=== PATIENT | male | born 1955 | race African-American/Black ===

== ENCOUNTER 2017-09-27 10:08 | Inpatient (IN) | payer OTHER ==
[~2017-09-27] VITALS: Ht 180.3 cm; Wt 64.4 kg
[~2017-09-27 10:08] MED LIST: ATEN50TA PO; LISI10TA5 PO
--- NOTE | 2017-09-27 10:20 | NUR ---
AAOX3, c/o nausea and vomiting x w/ loose stools feeling weak, lost apetite. RR IS EVEN AND UNLABORED WITH NAD NOTED. SKIN IS WARM AND DRY. DR BERNARDO AT BS FOR EVAL.
[2017-09-27] MEDS ORDERED: ISOS10TA8 PO (10:23)
[2017-09-27] MEDS ORDERED: METO50TA3 PO (10:23)
[2017-09-27] MEDS ORDERED: AMLO10TA2 PO (10:23)
[2017-09-27 10:53] LABS: BASOPHILS % (AUTO) 0.3 % (0.0-2.0); EOSINOPHILS # (AUTO) 0.2 /CMM (0.0-0.7); EOSINOPHILS % (AUTO) 2.3 % (0.0-6.0); HEMATOCRIT 37 % (39-51); LYMPHOCYTES # (AUTO) 1.2 /CMM (0.8-4.8); LYMPHOCYTES % (AUTO) 14.6 % (20.0-44.0); MEAN CORPUSCULAR HEMOGLOBIN 28 PG (26.0-33.0); MEAN CORPUSCULAR HGB CONC 33 g/dl (31.0-36.0); MEAN CORPUSCULAR VOLUME 86 fL (80-96); MONOCYTES # (AUTO) 0.6 /CMM (0.1-1.30); MONOCYTES % (AUTO) 7.8 % (2.0-12.0); NEUTROPHILS # (AUTO) 5.9 /CMM (1.8-8.9); PLATELET COUNT (AUTO) 112 /CMM (150-450); RDW COEFFICIENT OF VARIATION 13.1 (11.5-15.0); RED BLOOD CELL COUNT(AUTO) 4.28 MIL/uL (4.5-6.0); WHITE BLOOD COUNT (AUTO) 7.9 K/uL (4.3-11.0)
[2017-09-27 11:08] LABS: ALBUMIN 3.5 g/dL (3.4-5.0); BILIRUBIN,DIRECT 0.1 mg/dL (0.0-0.2); BILIRUBIN,TOTAL 0.3 mg/dL (0.2-1.0); CALCIUM, SERUM 6.3 mg/dL (8.5-10.1); POTASSIUM 3.8 mmol/L (3.5-5.1); TOTAL PROTEIN, SERUM 7.6 g/dL (6.4-8.2)
[2017-09-27 11:09] LABS: CREATININE 18.3 mg/dL (0.6-1.3)
[2017-09-27 11:10] LABS: TROPONIN I 0.031 ng/mL (0.00-0.056)
--- NOTE | 2017-09-27 11:15 | NUR ---
CALLED [facility], DR LORENZANA WAS PAGED.
--- NOTE | 2017-09-27 11:20 | NUR ---
CALLED [facility] ABSTRACTOR WAS PAGED.
[2017-09-27] MEDS ORDERED: IV NS 0.9% 500 ML BAG IV ONE (11:30)
[2017-09-27] MEDS: AMLODIPINE BESYLATE 10 MG TABLET PO SCH (12:00)
[2017-09-27] MEDS ORDERED: ZOLPIDEM TARTRATE 5 MG TABLET PO PRN (12:00)
[2017-09-27] MEDS ORDERED: Z GUARD REMEDY 2 OZ OINT TP PRN (12:00)
[2017-09-27] MEDS: METOPROLOL TARTRATE 50 MG TABLET PO SCH ×2 (12:00→16:43)
[2017-09-27] MEDS ORDERED: MAGNESIUM HYDROXIDE 30 ML UDC PO PRN (12:00)
[2017-09-27] MEDS ORDERED: MAG HYDROX/AL HYDROX/SIMETH 30 ML UDC PO PRN (12:00)
--- NOTE | 2017-09-27 12:41 | NUR ---
NURSE UNAVAILABLE FOR REPORT AT THIS TIME.
--- NOTE | 2017-09-27 12:59 | NUR ---
REPORT GIVEN TO SHI SAMUELS FOR TELE ROOM 116
--- NOTE | 2017-09-27 13:35 | NUR ---
RN NOTE RECEIVED PT ON AOX4, ON BED, AMBULATORY, NO SOB, ON ROOM AIR, VS STABLE, L AC IV ACCESS, CLEAN AND DRY, DENIES ANY PAIN, DENIES N/V. WILL CONTINUE TO MONITOR.
[2017-09-27 13:50] VITALS: BP 154/83
[2017-09-27] MEDS: IV NS 0.9% 1,000 ML IV PRN (14:27)
[2017-09-27 16:00] VITALS: BP 154/85
[2017-09-27] MEDS: ISOSORBIDE MONONITRATE 20 MG TABLET PO SCH (16:43)
--- NOTE | 2017-09-27 19:00 | NUR ---
PATIENT IS ALERT AND ORIENTED X 4. ABLE TO VERBALIZE NEEDS. PATIENT REMAINS STABLE THROUGHOUT THE SHIFT. ALL NEEDS MET. KEPT CLEAN AND COMFORTABLE. NIECE IS AT BED SIDE. ENDORSED TO NEXT SHIFT FOR CONTINUITY OF CARE. ALL DUE MEDS GIVEN PER MD ORDER.
[2017-09-27 20:00] VITALS: BP 159/93
[2017-09-28] MEDS: ACETAMINOPHEN 325 MG TABLET PO PRN ×2 (02:14→21:18)
[2017-09-28 04:00] VITALS: BP_SYST 159; BP_SYST 166; BP_DIAS 85; BP_DIAS 93
[2017-09-28] MEDS: IV NS 0.9% 1,000 ML IV PRN (04:22)
[2017-09-28] MEDS: ONDANSETRON HCL/PF 4 MG/2 ML VIAL IVP PRN (04:27)
--- NOTE | 2017-09-28 07:00 | NUR ---
RN NOTES: PATIENT RESTING IN BED. PATIENT ALERT ORIENTED X4. NONLBAORED BREATHING NOTED ON ROOM AIR. IV SITE PATENT AND INTACT. PATIENT DENIES PAIN. BED IN LOWEST LOCKED POSITION. CALL LIGHT WITHIN REACH. WILL CONTINUE TO MONITOR
[2017-09-28 07:54] LABS: CALCIUM, SERUM 6.2 mg/dL (8.5-10.1); MAGNESIUM 1.9 mg/dL (1.8-2.4); PHOSPHORUS 6.4 mg/dL (2.5-4.9); POTASSIUM 3.6 mmol/L (3.5-5.1)
[2017-09-28 08:00] VITALS: BP 162/89
[2017-09-28 08:09] LABS: CREATININE 19.4 mg/dL (0.6-1.3)
[2017-09-28 08:21] LABS: BASOPHILS % (AUTO) 0.1 % (0.0-2.0); EOSINOPHILS # (AUTO) 0.1 /CMM (0.0-0.7); EOSINOPHILS % (AUTO) 1.2 % (0.0-6.0); HEMATOCRIT 33 % (39-51); LYMPHOCYTES # (AUTO) 1.1 /CMM (0.8-4.8); MEAN CORPUSCULAR HEMOGLOBIN 29 PG (26.0-33.0); MEAN CORPUSCULAR HGB CONC 34 g/dl (31.0-36.0); MEAN CORPUSCULAR VOLUME 86 fL (80-96); MONOCYTES # (AUTO) 0.7 /CMM (0.1-1.30); MONOCYTES % (AUTO) 7.6 % (2.0-12.0); NEUTROPHILS # (AUTO) 7.9 /CMM (1.8-8.9); NEUTROPHILS % (AUTO) 80.1 % (43.0-81.0); PLATELET COUNT (AUTO) 102 /CMM (150-450); RDW COEFFICIENT OF VARIATION 13.7 (11.5-15.0); RED BLOOD CELL COUNT(AUTO) 3.79 MIL/uL (4.5-6.0); WHITE BLOOD COUNT (AUTO) 9.8 K/uL (4.3-11.0)
[2017-09-28] MEDS ORDERED: ISOSORBIDE MONONITRATE 20 MG TABLET PO SCH (09:00)
[2017-09-28] MEDS: AMLODIPINE BESYLATE 10 MG TABLET PO SCH (09:02)
[2017-09-28] MEDS: ISOSORBIDE MONONITRATE 20 MG TABLET PO SCH ×2 (09:03→16:19)
[2017-09-28] MEDS: METOPROLOL TARTRATE 50 MG TABLET PO SCH ×2 (09:04→16:20)
[2017-09-28] MEDS ORDERED: MORPHINE SULFATE INJ 2 MG/ML DISP.SYRIN IVP ONE (12:30)
--- NOTE | 2017-09-28 12:35 | NUR ---
RN NOTES: PATIENT INDICATED SLIGHT CHEST TIGHTNESS DURING HD ACCESS INSERTION. DR TALAMANTES ORDERED MORPHINE 2 MG IV ONCE. PATIENT REFUSING MEDICATION. DENYING CHEST PAIN AND DENYING CHEST TIGHTNESS AT THE MOMENT. NONLABORED BREATHING NOTED. WILL CONTINUE TO MONITOR PATIENT
[2017-09-28] MEDS ORDERED: Calcium Gluconate 1GM/10ML 4.65 MEQ in IV D5W 50 ML IV ONE (15:00)
[2017-09-28 16:00] VITALS: BP 180/100
[2017-09-28] MEDS: CALCIUM ACETATE 667 MG TABLET PO SCH (18:14)
--- NOTE | 2017-09-28 19:29 | NUR ---
RN NOTES CLOSING: PATIENT ALERT ORIENTED X4. NONLABORED BREATHING ON ROOM AIR. NO SIGNS OF DISTRESS. PATIENT DENIES PAIN AT THE MOMENT, DENIES NAUSEA. IV SITE PATENT AND INTACT. INTERNAL JUGULAR CATHETER, INSERTED BY DR TALAMANTES TEMPORARY HEMODIALYSIS ACESS. PATIENT RECEIVED HEMODIALYSIS TODAY. OUTPUT 1000ML. PATIENT DENIES HEADACHES. THE AMOUNT OF 1,000 DOLLARS THAT WAS IN THE HOSPITAL'S SAFE RETURNED BACK TO PATIENT VIA PATIENT'S REQUEST TO BE SENT HOME WITH . CHARGE NURSE ANNITA WITNESSED THE COUNT. BED IN LOWEST LOCKED POSITION. CALL LIGHT WITHIN REACH. DURING SHIFT, PATIENT KEPT CLEAN AND DRY DURING SHIFT, ENCOURAGED TO TURN AND REPOSITION EVERY 2 HOURS. ENDORSED TO NEXT SHIFT
--- NOTE | 2017-09-28 19:30 | NUR ---
RN INITIAL NOTES, RECEIVED PATIENT IN BED, A/O X 4, ABLE TO VERBALIZED NEEDS AND CONCERNS. BREATHING EVEN AND UNLABORED NO S/S OF ACUTE DISTRESS OR SOB NOTED AT THIS TIME. NOTED WITH RIGHT JUGULAR CVC PLACED TODAY FOR HD ACCESS, INTACT, NO S/S OF INFECTION OR BLEEDING AT THIS TIME, WITH SALINE LOCK IN LEFT AC, INTACT NO S/S OF ABNORMALITY NOTED, AMBULATORY AND CONTINENT TO B&B, WILL CONTINUE TO MONITOR CLOSELY.
[2017-09-28 20:00] VITALS: BP 157/91
[2017-09-29 04:00] VITALS: BP 155/90
--- NOTE | 2017-09-29 06:45 | NUR ---
RN CLOSING NOTES, PATIENT SLEEPING IN BED, BUT EASILY AROUSABLE, BREATHING EVEN AND UNLABORED, NO S/S OF ANY ACUTE DISTRESS OR DISCOMFORT, NO SOB OR PAIN REPORTED AT THIS TIME. PATIENT WITH RIGHT INTRAJUGULAR CATHETER FOR HEMODIALYSIS, PATIENT WILL HAVE HEMODIALYSIS TODAY, WILL ENDORSED CARE TO NEXT SHIFT NURSE.
[2017-09-29 06:55] LABS: BASOPHILS % (AUTO) 0.4 % (0.0-2.0); EOSINOPHILS # (AUTO) 0.3 /CMM (0.0-0.7); EOSINOPHILS % (AUTO) 3.4 % (0.0-6.0); HEMATOCRIT 34 % (39-51); HEMOGLOBIN 11.5 g/dL (13.5-17.5); LYMPHOCYTES # (AUTO) 1.6 /CMM (0.8-4.8); LYMPHOCYTES % (AUTO) 20.3 % (20.0-44.0); MEAN CORPUSCULAR HEMOGLOBIN 29 PG (26.0-33.0); MEAN CORPUSCULAR HGB CONC 34 g/dl (31.0-36.0); MEAN CORPUSCULAR VOLUME 86 fL (80-96); MONOCYTES # (AUTO) 0.8 /CMM (0.1-1.30); MONOCYTES % (AUTO) 10.6 % (2.0-12.0); NEUTROPHILS % (AUTO) 65.3 % (43.0-81.0); PLATELET COUNT (AUTO) 117 /CMM (150-450); RDW COEFFICIENT OF VARIATION 14.1 (11.5-15.0); RED BLOOD CELL COUNT(AUTO) 3.98 MIL/uL (4.5-6.0); WHITE BLOOD COUNT (AUTO) 7.7 K/uL (4.3-11.0)
[2017-09-29 07:21] LABS: MAGNESIUM 1.9 mg/dL (1.8-2.4); PHOSPHORUS 6.5 mg/dL (2.5-4.9); POTASSIUM 3.2 mmol/L (3.5-5.1)
[2017-09-29 07:24] LABS: CREATININE 16.3 mg/dL (0.6-1.3)
--- NOTE | 2017-09-29 07:34 | NUR ---
MS/RN OPENING NOTE PATIENT IN BED IN STABLE CONDITION. A/O X 3. NO SIGNS OF ACUTE DISTRESS. NO COMPLAIN OF PAIN OR DISCOMFORT. ALL NEEDS ATTENDED TO. CALL LIGHT WITHIN REACH. WILL CONTINUE TO MONITOR TO ENSURE SAFETY.
[2017-09-29 08:00] VITALS: BP 159/93
[2017-09-29] MEDS: ISOSORBIDE MONONITRATE 20 MG TABLET PO SCH ×2 (08:37→16:56)
[2017-09-29] MEDS: METOPROLOL TARTRATE 50 MG TABLET PO SCH ×2 (08:37→16:56)
[2017-09-29] MEDS: CALCIUM ACETATE 667 MG TABLET PO SCH ×3 (08:38→16:56)
[2017-09-29] MEDS: AMLODIPINE BESYLATE 10 MG TABLET PO SCH (08:38)
[2017-09-29] MEDS: VIT B CMPLX 3/FA/VIT C/BIOTIN 1 TAB TABLET PO SCH (08:38)
--- NOTE | 2017-09-29 10:00 | NUR ---
MS/RN SEEN BY DR BAEZ PATIENT SEEN BY DR BAEZ WITH NO ORDERS AT THIS TIME.
--- NOTE | 2017-09-29 12:15 | NUR ---
MS/RN S/P HD TREATMENT PATIENT S/P HEMODIALYSIS TREATMENT TOLERATED WELL. 2000ML FLUID OUT. RIGHT IJ CATHETER SITE CLEAN, DRY NOTED WITH CLEAN DRESSING. NO SIGNS OF BLEEDING NOTED. ALL NEEDS ATTENDED TO. WILL CONTINUE TO MONITOR TO ENSURE SAFETY.
[2017-09-29 12:17] VITALS: BP 159/83
[2017-09-29] MEDS: ONDANSETRON HCL/PF 4 MG/2 ML VIAL IVP PRN (13:09)
[2017-09-29 16:00] VITALS: BP 186/99
[2017-09-29] MEDS: NEOMY SULF/BACITRAC ZN/POLY 15 GM TUBE TP SCH (17:00)
--- NOTE | 2017-09-29 18:23 | NUR ---
MS/RN CLOSING NOTE PATIENT IN BED IN STABLE CONDITION. A/O X 3. NO SIGNS OF ACUTE DISTRESS. NO COMPLAIN OF PAIN OR DISCOMFORT. ALL NEEDS ATTENDED TO. CALL LIGHT WITHIN REACH. WILL ENDORSE TO NEXT SHIFT FOR CONTINUITY OF CARE.
--- NOTE | 2017-09-29 19:05 | NUR ---
RN OPENING NOTES RECEIVED REPORT FROM AM RN. PATIENT A/A/O X4, ABLE TO MAKE NEEDS KNOWN. BREATHING EVEN & UNLABORED, ON ROOM AIR. DENIES SOB OR DIFFICULTY BREATHING. PULSES PRESENT. LEFT AC IV #20 INTACT & FLUSHING WELL W/ DRESSING CDI, SALINE LOCKED. RIGHT IJ HD CATH INTACT W/ DRESSING CDI & MINIMAL BLEEDING NOTED. DENIES ANY PAIN OR DISCOMFORT @ THIS TIME. SAFETY MEASURES IN PLACE W/ SIDE RAILS UP, BED LOCKED & IN LOWEST POSITION & CALL LIGHT WITHIN REACH. WILL CONTINUE TO MONITOR.
[2017-09-29 20:00] VITALS: BP 146/81
[2017-09-30 04:00] VITALS: BP 143/85
--- NOTE | 2017-09-30 07:10 | NUR ---
RN NOTES RECEIVED PT ON BED, A/Ox4, RESPIRATION EVEN AND UNLABORED, NO SOB NOTED, ON RA , . LEFT AC IV #20 SITE CDI, SALINE LOCKED. RIGHT IJ HD CATH INTACT W/ DRESSING CDI , DENIES ANY PAIN OR DISCOMFORT @ THIS TIME. SR UP x3, CALL LIGHT WITHIN EASY REACH, BED LOCKED & IN LOWEST POSITION, WILL CONTINUE TO MONITOR.
[2017-09-30 07:57] LABS: BASOPHILS % (AUTO) 0.4 % (0.0-2.0); EOSINOPHILS # (AUTO) 0.3 /CMM (0.0-0.7); EOSINOPHILS % (AUTO) 3.6 % (0.0-6.0); HEMATOCRIT 34 % (39-51); HEMOGLOBIN 11.3 g/dL (13.5-17.5); LYMPHOCYTES # (AUTO) 1.6 /CMM (0.8-4.8); LYMPHOCYTES % (AUTO) 21.2 % (20.0-44.0); MEAN CORPUSCULAR HEMOGLOBIN 28 PG (26.0-33.0); MEAN CORPUSCULAR HGB CONC 33 g/dl (31.0-36.0); MEAN CORPUSCULAR VOLUME 86 fL (80-96); MONOCYTES % (AUTO) 12.9 % (2.0-12.0); NEUTROPHILS # (AUTO) 4.8 /CMM (1.8-8.9); NEUTROPHILS % (AUTO) 61.9 % (43.0-81.0); PLATELET COUNT (AUTO) 152 /CMM (150-450); RED BLOOD CELL COUNT(AUTO) 3.96 MIL/uL (4.5-6.0); WHITE BLOOD COUNT (AUTO) 7.8 K/uL (4.3-11.0)
[2017-09-30 08:00] VITALS: BP 162/100
[2017-09-30] MEDS: CALCIUM ACETATE 667 MG TABLET PO SCH ×3 (08:01→17:15)
[2017-09-30 08:08] LABS: CALCIUM, SERUM 6.9 mg/dL (8.5-10.1); MAGNESIUM 1.8 mg/dL (1.8-2.4); PHOSPHORUS 6.2 mg/dL (2.5-4.9); POTASSIUM 3.2 mmol/L (3.5-5.1)
[2017-09-30 08:11] LABS: CREATININE 14.4 mg/dL (0.6-1.3)
--- NOTE | 2017-09-30 09:00 | NUR ---
RN NOTES PT RECEIVING HD AT THIS TIME , MORNING MEDS HELD AT THIS TIME .
[2017-09-30] MEDS: METOPROLOL TARTRATE 50 MG TABLET PO SCH ×2 (10:09→16:37)
[2017-09-30] MEDS: ISOSORBIDE MONONITRATE 20 MG TABLET PO SCH ×2 (10:10→16:36)
[2017-09-30] MEDS: VIT B CMPLX 3/FA/VIT C/BIOTIN 1 TAB TABLET PO SCH (10:10)
[2017-09-30] MEDS: AMLODIPINE BESYLATE 10 MG TABLET PO SCH (10:10)
[2017-09-30] MEDS: NEOMY SULF/BACITRAC ZN/POLY 15 GM TUBE TP SCH ×2 (10:12→16:37)
[2017-09-30 12:00] VITALS: BP 155/98
--- NOTE | 2017-09-30 14:00 | NUR ---
RN NOTES PT STABLE , SUPPORTIVE FAMILY AT THE BEDSIDE, CONTINUE TO MONITOR .
[2017-09-30 16:00] VITALS: BP 159/93
--- NOTE | 2017-09-30 18:24 | NUR ---
RN NOTES PT SITTING UP EATING DINNER , BALWINDER ANY DISTRESS , L AC IV SITE AND R IJ HD CATH SITES CDI, CALL LIGHT WITHIN EASY REACH, WILL ENDORSE TO GETTER FILLER NURSE FOR BRADY.
--- NOTE | 2017-09-30 19:40 | NUR ---
MS RN INITIAL NOTE PT RECEIVED SITTING UP IN BED WATCHING TV WITH FAMILY AT BEDSIDE. A/O X4 AND ABLE TO MAKE NEEDS KNOWN. BREATHING REGULAR, EVEN AND UNLABORED. ON ROOM AIR AND SATURATING 97%. IV LAC #20 CLEAN, DRY AND FLUSHING WELL. R IJ HD CATH CLEAN AND IN PLACE. EXPLAINED TO PT NPO STATUS STARTING AT MIDNIGHT FOR PROCEDURE IN THE MORNING. PT VERBALIZED UNDERSTANDING. CALL LIGHT WITHIN REACH. WILL CONTINUE TO MONITOR.
[2017-09-30 20:00] VITALS: BP 146/92
--- NOTE | 2017-10-01 | NUR ---
RN NOTE PT C/O RIGHT KNEE PAIN. PT ASKED FOR HOT PACK AND WRAPPED WITH ELMO BANDAGE. OFFERED PAIN MEDICATION AND PT REFUSED STATING THE PAIN WAS NOT TOO BAD. PT WENT BACK TO SLEEP.
[2017-10-01 04:00] VITALS: BP 150/93
--- NOTE | 2017-10-01 04:00 | NUR ---
RN NOTE PT ASKED FOR MORE ANOTHER HOT PACK FOR HIS RIGHT KNEE PAIN. ONCE AGAIN OFFERED PAIN MEDICATION AND PT REFUSED. WENT BACK TO SLEEP.
[2017-10-01] MEDS ORDERED: CEFAZOLIN 2 GM ONE (06:25)
[2017-10-01] MEDS ORDERED: CEFAZOLIN 2 GM in IV D5W 50 ML IV ONE (06:30)
--- NOTE | 2017-10-01 06:30 | NUR ---
RN NOTE DR. SKY-SURGEON FOR PERMA CATH PLACEMENT THIS MORNING IN PT ROOM WITH NEW ORDER FOR ONE TIME DOSE ANCEF 2 GRAM IVPB MIXED IN D5W, 50ML BAG FOR PREOP/ PROPHYLAXIS. ORDERS NOTED AND CARRIED.
[2017-10-01] MEDS ORDERED: ANESTHESIA TRAY IN PYXIS 1 EA TRAY MC ONE ×2 (06:39→07:02)
[2017-10-01] MEDS ORDERED: LIDOCAINE 1% INJ 50 ML MDV IJ ONE ×2 (06:40→06:48)
[2017-10-01] MEDS ORDERED: HEPARIN SODIUM, PORCINE 1,000 UNIT/ML VIAL ONE (06:40)
[2017-10-01] MEDS ORDERED: PROPOFOL 20 ML IV ONE (06:49)
[2017-10-01] MEDS ORDERED: ATROPINE SULFATE 1 MG/10 ML DISP.SYRIN ONE (06:50)
[2017-10-01] MEDS ORDERED: ESMOLOL INJ 100 MG/10 ML VIAL IV ONE (06:52)
[2017-10-01] MEDS ORDERED: FENTANYL PF 100MCG/2ML AMPUL ONE ×2 (06:54→08:13)
[2017-10-01] MEDS ORDERED: MIDAZOLAM HCL 2 MG/2ML VIAL ONE (06:54)
--- NOTE | 2017-10-01 07:00 | NUR ---
RN NOTES PT OFF THE FLOOR IN OR AT THIS TIME
[2017-10-01 07:09] LABS: BASOPHILS % (AUTO) 0.3 % (0.0-2.0); CALCIUM, SERUM 7.2 mg/dL (8.5-10.1); EOSINOPHILS # (AUTO) 0.3 /CMM (0.0-0.7); EOSINOPHILS % (AUTO) 2.9 % (0.0-6.0); HEMATOCRIT 36 % (39-51); HEMOGLOBIN 11.9 g/dL (13.5-17.5); LYMPHOCYTES # (AUTO) 2.1 /CMM (0.8-4.8); LYMPHOCYTES % (AUTO) 21.2 % (20.0-44.0); MAGNESIUM 1.9 mg/dL (1.8-2.4); MEAN CORPUSCULAR HEMOGLOBIN 29 PG (26.0-33.0); MEAN CORPUSCULAR HGB CONC 33 g/dl (31.0-36.0); MEAN CORPUSCULAR VOLUME 87 fL (80-96); MONOCYTES # (AUTO) 1.1 /CMM (0.1-1.30); MONOCYTES % (AUTO) 10.5 % (2.0-12.0); NEUTROPHILS # (AUTO) 6.6 /CMM (1.8-8.9); NEUTROPHILS % (AUTO) 65.1 % (43.0-81.0); PHOSPHORUS 5.2 mg/dL (2.5-4.9); PLATELET COUNT (AUTO) 201 /CMM (150-450); POTASSIUM 4.3 mmol/L (3.5-5.1); RDW COEFFICIENT OF VARIATION 13.9 (11.5-15.0); RED BLOOD CELL COUNT(AUTO) 4.17 MIL/uL (4.5-6.0); WHITE BLOOD COUNT (AUTO) 10.1 K/uL (4.3-11.0)
--- NOTE | 2017-10-01 07:13 | NUR ---
MS RN CLOSING NOTE PT REMAINED STABLE DURING SHIFT. PT C/O RIGHT KNEE PAIN AND ASKING FOR TORADOL ONE TIME DOSE. INFORMED BAR HELPER DR. ARSHAD WITH NEW ORDER OF TORADOL 15MG X1 BUT DID NOT GIVE A ROUTE. CALLED DR BACK FOR CLARIFICATION OF ORDER, WHILE AWAITING CALL BACK PT WAS PICKED UP BY SURGERY. SURGERY TEAM INFORMED OF PAIN MEDICATION ROUTE NOT GIVEN AND AWAITING MD CALL BACK. SURGERY TEAM STATED,"WE WILL TAKE CARE OF IT. HE'LL BE GIVEN SOMETHING FOR PAIN." PT LEFT UNIT A/O X4, SAFELY AND IN NO ACUTE DISTRESS. NO SOB NOTED. ON ROOM AIR. ENDORSED TO NEXT SHIFT FOR CONTINUITY OF CARE.
[2017-10-01 07:26] LABS: CREATININE 13.3 mg/dL (0.6-1.3)
[2017-10-01 08:00] VITALS: BP 135/86
[2017-10-01] MEDS: CALCIUM ACETATE 667 MG TABLET PO SCH ×3 (08:00→17:20)
[2017-10-01] MEDS ORDERED: MEPERIDINE HCL/PF 50 MG/ML DISP.SYRIN ONE (08:03)
[2017-10-01] MEDS ORDERED: ONDANSETRON HCL/PF 4 MG/2 ML VIAL ONE (08:13)
[2017-10-01 08:45] VITALS: BP 135/86
--- NOTE | 2017-10-01 08:45 | NUR ---
RN NOTES PT RECEIVED IN ROOM 116-1 FROM OR, A/Ox4, RESPIRATION EVEN AND UNLABORED, C/O R AND L LEG PAIN , DR BAEZ AWARE , PEDAL PULSES PRESENT YELITZA , NO SWELLING OR REDNESS NOTED , ND=516/86 HR 89 O2 SAT 98%, R UPPER CHEST PERMA CATH SITE CDI, DRESSING TO R NECK CDI. L AC IV SITE G 20 CDI, CONTINUE TO MONITOR PT CLOSELY .
[2017-10-01] MEDS: NEOMY SULF/BACITRAC ZN/POLY 15 GM TUBE TP SCH ×2 (08:58→16:54)
[2017-10-01] MEDS: VIT B CMPLX 3/FA/VIT C/BIOTIN 1 TAB TABLET PO SCH (08:59)
[2017-10-01] MEDS: ISOSORBIDE MONONITRATE 20 MG TABLET PO SCH ×2 (08:59→16:55)
[2017-10-01] MEDS: AMLODIPINE BESYLATE 10 MG TABLET PO SCH (08:59)
[2017-10-01] MEDS: METOPROLOL TARTRATE 50 MG TABLET PO SCH ×2 (09:00→16:55)
[2017-10-01] MEDS: CALCITRIOL ORAL SOLUTION 1 MCG/ML NG SCH (09:05)
[2017-10-01] MEDS: HYDROCODONE/APAP 5/325MG 1 EACH TABLET PO PRN ×3 (09:36→20:22)
--- NOTE | 2017-10-01 15:47 | NUR ---
RN NOTES PT C/O RIGHT KNEE PAIN , NARCO PO GIVEN PER MD ORDER , WANTS TO SEE DR Nito BAEZ. R LEG WARM TO TOUCH, PEDAL PULSE PRESENT . DR BAEZ NOTIFIED .
[2017-10-01 16:00] VITALS: BP_SYST 117; BP_SYST 141; BP_DIAS 69; BP_DIAS 87
--- NOTE | 2017-10-01 16:00 | NUR ---
RN NOTES DR BAEZ AT THE BEDSIDE SEEING THE PT .
[2017-10-01] MEDS: COLCHICINE 0.6 MG TABLET PO PRN ×3 (17:20→22:15)
[2017-10-01] MEDS ORDERED: HYDROMORPHONE INJ 2 MG/ML DISP.SYRIN IV PRN (17:30)
--- NOTE | 2017-10-01 18:23 | NUR ---
RN NOTES PT SITTING AT UP, EATING DINNER , RESPIRATION EVEN AND UNLABORED, L AC IV SITE CDI, SUPPORTIVE FAMILY AT THE BEDSIDE, R UPPER CHEST PERMA CATH SITE CDI, WILL ENDORSE TO FINAL TESTER NURSE FOR BRADY
--- NOTE | 2017-10-01 19:40 | NUR ---
MS RN INITIAL NOTE PT RECEIVED SITTING UP IN BED WITH FAMILY AT BEDSIDE. A/O X4 AND ABLE TO MAKE NEEDS KNOWN. C/O RIGHT KNEE PAIN AND ASKED FOR COLCHICINE PRN. MEDICATION ADMINISTERED AND WELL TOLERATED. IV LAC CLEAN, DRY AND FLUSHING WELL. ON ROOM AIR AND BREATHING REGULAR, EVEN AND UNLABORED. CALL LIGHT WITHIN REACH. WILL CONTINUE TO MONITOR.
[2017-10-01 20:00] VITALS: BP 154/89
[2017-10-02] MEDS: COLCHICINE 0.6 MG TABLET PO PRN ×4 (02:12→22:11)
[2017-10-02] MEDS: HYDROCODONE/APAP 5/325MG 1 EACH TABLET PO PRN ×2 (02:51→14:42)
[2017-10-02 04:00] VITALS: BP 164/98
--- NOTE | 2017-10-02 06:34 | NUR ---
MS RN CLOSING NOTE PT REMAINED STABLE DURING SHIFT. NO ACUTE DISTRESS NOTED. RIGHT KNEE PAIN MANAGED WITH REPOSITIONING, PASSIVE RANGE OF MOTION, HOT PACKS AND PAIN MEDICATIONS ORDERED. ALL NEEDS ATTENDED TO PROMPTLY. RCW PERMACATH CLEAN AND IN PLACE. IV IN PLACE. CALL LIGHT WITHIN REACH. WILL ENDORSE TO NEXT SHIFT FOR CONTINUITY OF CARE.
--- NOTE | 2017-10-02 07:20 | NUR ---
ms rn initial notes Received patient in bed, awake, head of bed elevated, no SOB or distress noted. Alert and oriented x 4, verbally responsive and able to make needs known. IV intact and patent on the left AC #20, perma cath on the right chest wall, dressing intact, for dialysis access. Kept patient clean and comfortable in bed, call light with in patient reach, will continue to monitor accordingly.
[2017-10-02 08:00] VITALS: BP 166/93
[2017-10-02] MEDS: ONDANSETRON HCL/PF 4 MG/2 ML VIAL IVP PRN ×2 (08:30→14:08)
[2017-10-02] MEDS: CALCIUM ACETATE 667 MG TABLET PO SCH ×3 (08:32→17:59)
[2017-10-02] MEDS: ISOSORBIDE MONONITRATE 20 MG TABLET PO SCH ×2 (08:32→16:35)
[2017-10-02] MEDS: AMLODIPINE BESYLATE 10 MG TABLET PO SCH (08:32)
[2017-10-02] MEDS: NEOMY SULF/BACITRAC ZN/POLY 15 GM TUBE TP SCH ×2 (08:33→16:36)
[2017-10-02] MEDS: METOPROLOL TARTRATE 50 MG TABLET PO SCH ×2 (08:33→16:35)
[2017-10-02] MEDS: VIT B CMPLX 3/FA/VIT C/BIOTIN 1 TAB TABLET PO SCH (08:33)
[2017-10-02] MEDS: CALCITRIOL ORAL SOLUTION 1 MCG/ML NG SCH (08:35)
[2017-10-02 09:46] LABS: BASOPHILS % (AUTO) 0.2 % (0.0-2.0); EOSINOPHILS # (AUTO) 0.2 /CMM (0.0-0.7); EOSINOPHILS % (AUTO) 1.9 % (0.0-6.0); HEMATOCRIT 34 % (39-51); HEMOGLOBIN 10.7 g/dL (13.5-17.5); LYMPHOCYTES # (AUTO) 1.3 /CMM (0.8-4.8); LYMPHOCYTES % (AUTO) 9.9 % (20.0-44.0); MEAN CORPUSCULAR HEMOGLOBIN 28 PG (26.0-33.0); MEAN CORPUSCULAR HGB CONC 32 g/dl (31.0-36.0); MEAN CORPUSCULAR VOLUME 88 fL (80-96); MONOCYTES # (AUTO) 1.7 /CMM (0.1-1.30); MONOCYTES % (AUTO) 13.2 % (2.0-12.0); NEUTROPHILS # (AUTO) 9.6 /CMM (1.8-8.9); NEUTROPHILS % (AUTO) 74.8 % (43.0-81.0); PLATELET COUNT (AUTO) 215 /CMM (150-450); RDW COEFFICIENT OF VARIATION 13.6 (11.5-15.0); RED BLOOD CELL COUNT(AUTO) 3.84 MIL/uL (4.5-6.0); WHITE BLOOD COUNT (AUTO) 12.8 K/uL (4.3-11.0)
[2017-10-02 09:57] LABS: CALCIUM, SERUM 6.9 mg/dL (8.5-10.1); PHOSPHORUS 6.7 mg/dL (2.5-4.9)
[2017-10-02 11:27] LABS: CREATININE 16.4 mg/dL (0.6-1.3)
[2017-10-02 16:00] VITALS: BP 139/84
--- NOTE | 2017-10-02 17:54 | NUR ---
ms rn notes Called Dr. Wilkinson in regards with patient vomiting and ordered to discontinue previous Zofran order and change it to Zofran 4 mg IVP Q4hrs, and Zofran 4 mg IVP x 1 now. All orders carried out and noted. Will continue to monitor accordingly.
[2017-10-02] MEDS ORDERED: ONDANSETRON HCL/PF 4 MG/2 ML VIAL IV ONE (18:00)
--- NOTE | 2017-10-02 18:56 | NUR ---
ms rn closing notes All needs provided, attended, and anticipated. kept patient clean and comfortable in bed, call light with in patient reach, endorsed to Next shift RN to continue care.
--- NOTE | 2017-10-02 19:50 | NUR ---
RN MS INITIAL NOTE PT RECEIVED DURING EPISODE OF VOMIT X1 BROWNISH IN COLOR WITH NO TRACE OF BLOOD APPROXIMATELY 30-70CC. FAMILY AT BEDSIDE AND PT IS A/O X4 ABLE TO MAKE NEEDS KNOWN. PT IS ABLE TO AMBULATE WITH ASSISTANCE WITH A WALKER/NURSE. LAC 20G AND RCW PERMACATH. ZOFRAN GIVEN FOR N/V. SAFETY AND COMFORT MEASURES TO BE ENSURED DURING THE SHIFT. WILL CONTINUE TO MONITOR FOR ANY CHANGES IN CONDITION.
[2017-10-02 20:00] VITALS: BP 115/73
[2017-10-02] MEDS: ONDANSETRON HCL/PF 4 MG/2 ML VIAL IV PRN (20:13)
[2017-10-03 04:00] VITALS: BP 150/93
[2017-10-03] MEDS: HYDROCODONE/APAP 5/325MG 1 EACH TABLET PO PRN (06:41)
[2017-10-03 07:28] LABS: CALCIUM, SERUM 7.4 mg/dL (8.5-10.1); MAGNESIUM 1.9 mg/dL (1.8-2.4); PHOSPHORUS 6.2 mg/dL (2.5-4.9); POTASSIUM 3.9 mmol/L (3.5-5.1)
[2017-10-03 07:42] LABS: CREATININE 12.9 mg/dL (0.6-1.3)
--- NOTE | 2017-10-03 07:42 | NUR ---
RN MS INITIAL NOTE RECEIVED PATIENT RESTING IN BED, A/O X4 ABLE TO MAKE NEEDS KNOWN. PATIENT IN NO ACUTE DISTRESS ON ROOM AIR SAT ABOVE 95%. PATIENT COMPLAINTS OF BILATERAL KNEE PAIN DUE TO DISEASE PROCESS WAS MEDICATED THIS MORNING BY TIEDOWN OPERATOR NURSE WITH NOCO. REASSESSED PATIENTS PAIN EASED TO A LEVEL OF 4/10. IV TO LAC 20G AND RCW PERMACATH. SAFETY AND COMFORT MEASURES RENDERED, CALL LIGHT PLACED WITHIN REACH. WILL CONTINUE TO MONITOR
[2017-10-03 07:55] LABS: BASOPHILS # (AUTO) 0.1 /CMM (0.0-0.2); BASOPHILS % (AUTO) 0.4 % (0.0-2.0); EOSINOPHILS # (AUTO) 0.4 /CMM (0.0-0.7); EOSINOPHILS % (AUTO) 2.8 % (0.0-6.0); HEMATOCRIT 36 % (39-51); HEMOGLOBIN 11.5 g/dL (13.5-17.5); LYMPHOCYTES # (AUTO) 2.3 /CMM (0.8-4.8); LYMPHOCYTES % (AUTO) 16.6 % (20.0-44.0); MEAN CORPUSCULAR HEMOGLOBIN 28 PG (26.0-33.0); MEAN CORPUSCULAR HGB CONC 32 g/dl (31.0-36.0); MEAN CORPUSCULAR VOLUME 87 fL (80-96); MONOCYTES # (AUTO) 1.7 /CMM (0.1-1.30); MONOCYTES % (AUTO) 12.2 % (2.0-12.0); NEUTROPHILS # (AUTO) 9.4 /CMM (1.8-8.9); PLATELET COUNT (AUTO) 282 /CMM (150-450); RDW COEFFICIENT OF VARIATION 14.3 (11.5-15.0); RED BLOOD CELL COUNT(AUTO) 4.11 MIL/uL (4.5-6.0); WHITE BLOOD COUNT (AUTO) 13.9 K/uL (4.3-11.0)
[2017-10-03 08:00] VITALS: BP 138/89
[2017-10-03] MEDS: COLCHICINE 0.6 MG TABLET PO PRN (08:11)
[2017-10-03] MEDS: ISOSORBIDE MONONITRATE 20 MG TABLET PO SCH ×2 (08:11→17:14)
[2017-10-03] MEDS: CALCIUM ACETATE 667 MG TABLET PO SCH ×3 (08:11→17:14)
[2017-10-03] MEDS: VIT B CMPLX 3/FA/VIT C/BIOTIN 1 TAB TABLET PO SCH (08:11)
[2017-10-03] MEDS: CALCITRIOL ORAL SOLUTION 1 MCG/ML NG SCH (08:11)
[2017-10-03] MEDS: AMLODIPINE BESYLATE 10 MG TABLET PO SCH (08:12)
[2017-10-03] MEDS: METOPROLOL TARTRATE 50 MG TABLET PO SCH ×2 (08:12→17:14)
[2017-10-03] MEDS: NEOMY SULF/BACITRAC ZN/POLY 15 GM TUBE TP SCH ×2 (08:22→17:13)
--- NOTE | 2017-10-03 14:12 | NUR ---
MS/RN NOTES PATIENT STABLE NO SIGNIFICANT CHANGES NOTED. WILL CONTINUE TO MONITOR
[2017-10-03 16:00] VITALS: BP 121/78
--- NOTE | 2017-10-03 18:33 | NUR ---
MS/RN NOTES PATIENT RESTING IN BED COMFORTABLY WITH FAMILY AT BEDSIDE. NO SIGNIFICANT CHANGES NOTED TO PATIENTS CONDITION. ALL NEEDS MET AND ATTENDED ALL DUE MEDICATIONS GIVEN. PLAN OF CARE DISCUSSED AND AGREED. SAFETY MEASURES RENDERED CALL LIGHT PLACED WITHIN REACH. WILL ENDORSE SHIFT
--- NOTE | 2017-10-03 19:45 | NUR ---
MS RN INITIAL NOTES RECEIVED PT FROM DAY SHIFT IN STABLE CONDITION. SITTING UP IN CHAIR AT BEDSIDE WITH FAMILY NEAR BY. A/O X4 ABLE TO MAKE NEEDS KNOWN. DENIES PAIN AT THIS TIME. RT IS SWOLLEN. IV ACCESS IS LEAKING, TO BE CHANGED. RCW PERMCATH IN PLACE. BED IS IN LOW AND LOCKED POSITION, CALL LIGHT WITHIN REACH. WILL CONTINUE TO MONITOR PT
[2017-10-03] MEDS: ONDANSETRON HCL/PF 4 MG/2 ML VIAL IV PRN (19:59)
[2017-10-03 20:00] VITALS: BP 136/85
[2017-10-04 04:00] VITALS: BP 141/94
--- NOTE | 2017-10-04 06:30 | NUR ---
MS RN CLOSING NOTES PT IS IN BED RESTING. NO SIGNS OF SOB OR DISTRESS. RASH NOTED ON PT LOWER BACK AND ABDOMEN. PICTURES TAKEN AND PLACED IN CHART, WOUND CARE CONSULT ORDERED. ALL NEEDS WERE ANTICIPATED AND MET. BED IS IN LOW AND LOCKED POSITION, CALL LIGHT WITHIN REACH. WILL ENDORSE TO DAYSHIFT
--- NOTE | 2017-10-04 07:15 | NUR ---
RN NOTES PT IS SLEEPING IN BED. PT ON RA, RESPIRATIONS ARE EVEN AND UNLABORED. IV ON LAC INTACT AND SL, PERMACATH ON R CHEST WALL IN PLACE. SAFETY MEASURES ARE IN PLACE, CALL LIGHT IS IN REACH. WILL CONTINUE TO MONITOR.
[2017-10-04 08:00] VITALS: BP 140/87
[2017-10-04] MEDS: ISOSORBIDE MONONITRATE 20 MG TABLET PO SCH ×2 (08:16→17:44)
[2017-10-04] MEDS: CALCITRIOL ORAL SOLUTION 1 MCG/ML NG SCH (08:16)
[2017-10-04] MEDS: CALCIUM ACETATE 667 MG TABLET PO SCH ×3 (08:16→17:44)
[2017-10-04] MEDS: METOPROLOL TARTRATE 50 MG TABLET PO SCH ×2 (08:17→17:48)
[2017-10-04] MEDS: VIT B CMPLX 3/FA/VIT C/BIOTIN 1 TAB TABLET PO SCH (08:17)
[2017-10-04] MEDS: AMLODIPINE BESYLATE 10 MG TABLET PO SCH (08:17)
[2017-10-04] MEDS: NEOMY SULF/BACITRAC ZN/POLY 15 GM TUBE TP SCH ×2 (08:24→17:45)
[2017-10-04 09:29] LABS: BASOPHILS % (AUTO) 0.3 % (0.0-2.0); EOSINOPHILS # (AUTO) 0.7 /CMM (0.0-0.7); EOSINOPHILS % (AUTO) 6.1 % (0.0-6.0); HEMATOCRIT 33 % (39-51); HEMOGLOBIN 10.9 g/dL (13.5-17.5); LYMPHOCYTES # (AUTO) 1.1 /CMM (0.8-4.8); LYMPHOCYTES % (AUTO) 9.9 % (20.0-44.0); MEAN CORPUSCULAR HEMOGLOBIN 28 PG (26.0-33.0); MEAN CORPUSCULAR HGB CONC 33 g/dl (31.0-36.0); MEAN CORPUSCULAR VOLUME 85 fL (80-96); MONOCYTES # (AUTO) 1.1 /CMM (0.1-1.30); NEUTROPHILS # (AUTO) 7.8 /CMM (1.8-8.9); NEUTROPHILS % (AUTO) 73.7 % (43.0-81.0); PLATELET COUNT (AUTO) 338 /CMM (150-450); RDW COEFFICIENT OF VARIATION 13.1 (11.5-15.0); RED BLOOD CELL COUNT(AUTO) 3.85 MIL/uL (4.5-6.0); WHITE BLOOD COUNT (AUTO) 10.7 K/uL (4.3-11.0)
[2017-10-04 09:45] LABS: ALBUMIN 2.7 g/dL (3.4-5.0); BILIRUBIN,TOTAL 0.4 mg/dL (0.2-1.0); CALCIUM, SERUM 7.8 mg/dL (8.5-10.1); MAGNESIUM 2.1 mg/dL (1.8-2.4); PHOSPHORUS 7.2 mg/dL (2.5-4.9); POTASSIUM 4.1 mmol/L (3.5-5.1); TOTAL PROTEIN, SERUM 7.4 g/dL (6.4-8.2)
[2017-10-04 09:51] LABS: CREATININE 16.5 mg/dL (0.6-1.3)
--- NOTE | 2017-10-04 10:30 | NUR ---
RN NOTES PT WAS CLEARED TO SHOWER PER MD. PT WAS ABLE TO AMBULATE WITH WALKER TO SHOWER.LOTION AND HYDROCORTISONE CREAM WAS APPLIED AFTERWARD.
--- NOTE | 2017-10-04 10:55 | NUR ---
WOUND CARE CONSULT WOUND CARE RECEIVED CONSULT FOR RASH. WOUND CARE WILL DEFER TO MD FOR EVALUATION OF THE NEW RASHES. DISCUSSED WITH NURSING AND PER HADOOP JAVA DEVELOPER DR BAEZ HAS SEEN THE PATIENT AND IS AWARE OF THE NEW RASHES.
[2017-10-04] MEDS: HYDROCORTISONE 1% CREAM 28.35 GM TUBE TP SCH ×2 (11:22→17:45)
[2017-10-04] MEDS: ONDANSETRON HCL/PF 4 MG/2 ML VIAL IV PRN ×2 (13:06→18:50)
[2017-10-04 16:00] VITALS: BP_SYST 112; BP_SYST 147; BP_DIAS 59; BP_DIAS 87
--- NOTE | 2017-10-04 16:00 | NUR ---
RN NOTES SPOKE WITH DR. PLASCENCIA ON THE PHONE ABOUT ORDERING MRI SCAN OF THE RIGHT KNEE. ACCIDENTALLY PLACED THE ORDER UNDER DR. OROZCO.
[2017-10-04 18:00] VITALS: BP 122/79
[2017-10-04] MEDS ORDERED: GUAIFENESIN/CODEINE 10 ML UDC PO PRN (18:00)
--- NOTE | 2017-10-04 18:40 | NUR ---
RN NOTES PT IS SITTING UP IN BED, RESTING. PT ON RA, RESPIRATIONS ARE EVEN AND UNLABORED. IV ON LAC INTACT AND SL. PT HAD DIALYSIS TODAY, 1 LITER OUTPUT. THE DIALYSIS NURSE STATED THAT THE BLOOD BEGAN TO CLOT AT THE END, DR SCHMID IS AWARE. ALL MEDS WERE GIVEN ORDERED. ALL PT NEEDS MET. HYDROCORTISONE APPLIED TO RASH AREAS ON SKIN. FAMILY IS AT BEDSIDE. SAFETY MEASURES ARE IN PLACE, CALL LIGHT IS IN REACH. WILL ENDORSE TO NETWORK SYSTEMS ENGINEER RN FOR CONTINUITY OF CARE.
[2017-10-04 20:00] VITALS: BP 107/74
[2017-10-04] MEDS: diphenhydrAMINE HCL ELIX 25 MG/10 ML UDC PO PRN (20:35)
--- NOTE | 2017-10-05 03:54 | NUR ---
RN INITIAL NOTES PT SITTING AT BEDSIDE WITH FAMILY NEAR BY. A/O X4 ABLE TO MAKE NEEDS KNOWN. DENIES PAIN AT THIS TIME. RT KNEE IS SWOLLEN. IV ACCESS IN LAC #20. RCW PERMCATH IN PLACE DRESSING DRY AND INTACT. BED IS IN LOW AND LOCKED POSITION, CALL LIGHT WITHIN REACH. RN WILL CONTINUE TO MONITOR PT.
[2017-10-05 04:00] VITALS: BP 109/64
[2017-10-05 06:30] LABS: BASOPHILS % (AUTO) 0.4 % (0.0-2.0); EOSINOPHILS # (AUTO) 0.8 /CMM (0.0-0.7); HEMATOCRIT 32 % (39-51); HEMOGLOBIN 10.8 g/dL (13.5-17.5); LYMPHOCYTES # (AUTO) 1.5 /CMM (0.8-4.8); MEAN CORPUSCULAR HEMOGLOBIN 29 PG (26.0-33.0); MEAN CORPUSCULAR HGB CONC 34 g/dl (31.0-36.0); MEAN CORPUSCULAR VOLUME 86 fL (80-96); MONOCYTES # (AUTO) 1.6 /CMM (0.1-1.30); MONOCYTES % (AUTO) 13.8 % (2.0-12.0); NEUTROPHILS # (AUTO) 7.8 /CMM (1.8-8.9); NEUTROPHILS % (AUTO) 65.8 % (43.0-81.0); PLATELET COUNT (AUTO) 335 /CMM (150-450); RDW COEFFICIENT OF VARIATION 12.8 (11.5-15.0); RED BLOOD CELL COUNT(AUTO) 3.71 MIL/uL (4.5-6.0); WHITE BLOOD COUNT (AUTO) 11.6 K/uL (4.3-11.0)
--- NOTE | 2017-10-05 06:31 | NUR ---
RN CLOSING NOTES PT IS IN BED RESTING. NO SIGNS OF SOB OR DISTRESS. ALL NEEDS WERE MET. BED IS IN LOW AND LOCKED POSITION, CALL LIGHT WITHIN REACH. WILL ENDORSE TO DAYSHIFT
[2017-10-05 06:59] LABS: CALCIUM, SERUM 7.5 mg/dL (8.5-10.1); MAGNESIUM 2.1 mg/dL (1.8-2.4); PHOSPHORUS 7.6 mg/dL (2.5-4.9); POTASSIUM 4.3 mmol/L (3.5-5.1)
[2017-10-05 07:04] LABS: CREATININE 16.4 mg/dL (0.6-1.3)
--- NOTE | 2017-10-05 07:30 | NUR ---
MS RN OPENING RECEIVED PATIENT A/OX4 STATES HIS SWELLING AND PAIN TO RIGHT KNEE IS BETTER TODAY AND PAIN IS VERY MINIMAL; STATES HE DOES NOT WANT ANY PAIN MEDICATIONS AT THIS TIME. NO SOB DIFFICULTY BREATHING. PATIENT SITTING AT BEDSIDE APPEARS STABLE. ALL NEEDS IN REACH, BED LOWERED AND LOCKED. WILL ROUND Q2H OR LESS PER NEEDS.
[2017-10-05 08:00] VITALS: BP 115/75
[2017-10-05] MEDS: CALCIUM ACETATE 667 MG TABLET PO SCH ×3 (08:14→17:04)
[2017-10-05] MEDS: CALCITRIOL ORAL SOLUTION 1 MCG/ML NG SCH (08:14)
[2017-10-05] MEDS: VIT B CMPLX 3/FA/VIT C/BIOTIN 1 TAB TABLET PO SCH (08:15)
[2017-10-05] MEDS: METOPROLOL TARTRATE 50 MG TABLET PO SCH ×2 (08:16→17:04)
[2017-10-05] MEDS: AMLODIPINE BESYLATE 10 MG TABLET PO SCH (08:20)
[2017-10-05] MEDS: NEOMY SULF/BACITRAC ZN/POLY 15 GM TUBE TP SCH ×2 (08:20→17:05)
[2017-10-05] MEDS: ISOSORBIDE MONONITRATE 20 MG TABLET PO SCH ×2 (08:21→16:31)
[2017-10-05] MEDS: HYDROCORTISONE 1% CREAM 28.35 GM TUBE TP SCH ×2 (08:21→17:07)
--- NOTE | 2017-10-05 08:31 | NUR ---
MS RN NOTES DR SCHMID AND LEANDRO HD RN AWARE PATIENT WAS NOT ABLE TO COMPLETE HD YESTERDAY HIS BLOOD CLOTTED. AWAITING MD ORDERS. PT STABLE AT THIS TIME. WILL ROUND PRN
--- NOTE | 2017-10-05 09:31 | NUR ---
MS RN NOTES HD RN AT BEDSIDE
--- NOTE | 2017-10-05 09:31 | NUR ---
MS RN NOTES PATIENT BEING TAKEN DOWN TO CT SCAN IN STABLE CONDITION
--- NOTE | 2017-10-05 09:39 | NUR ---
MS RN NOTES PATIENT STATES HE WANTS TO HAVE HD BEFORE GOING TO CT.
--- NOTE | 2017-10-05 09:40 | NUR ---
MS RN NOTES HD STARTED
[2017-10-05 10:34] LABS: BAND % (MANUAL) 2 % (0.0-5.0); LYMPHOCYTES % (MANUAL) 19 % (16-48); NEUTROPHILS % (MANUAL) 66 (42-76)
[2017-10-05 10:35] LABS: EOSINOPHILS % (MANUAL) 4 % (0-4); MONOCYTES % (MANUAL) 9 % (0-11.0)
--- NOTE | 2017-10-05 12:40 | NUR ---
MS RN NOTES HD COMPLETED. VS STABLE.
--- NOTE | 2017-10-05 13:40 | NUR ---
MS RN NOTES DR SCHMID AND RUTH HAMILTON AT BEDSIDE
--- NOTE | 2017-10-05 14:03 | NUR ---
MS RN NOTES PATIENT AMBULATING WITH PHYSICAL THERAPY
--- NOTE | 2017-10-05 15:25 | NUR ---
MS RN NOTES PATIENT SCRATCHED SCAB ON RIGHT SIDE OF NECK. APPLIED NEOSPORIN AND BANDAID. NO BLEEDING
--- NOTE | 2017-10-05 15:26 | NUR ---
MS RN NOTES PER YUNG PATIENT CAN SHOWER. COVERED PERMACATH AND IV SITE TO WATERPROOF.
--- NOTE | 2017-10-05 15:57 | NUR ---
MS RN NOTES PATIENT BEING TAKEN FOR CT SCAN IN STABLE CONDITION
[2017-10-05 16:00] VITALS: BP 117/81
--- NOTE | 2017-10-05 16:19 | NUR ---
MS RN NOTES PATIENT RETURNED FROM CT SCAN
[2017-10-05] MEDS: ACETAMINOPHEN 325 MG TABLET PO PRN (17:49)
--- NOTE | 2017-10-05 18:55 | NUR ---
MS RN CLOSING PATIENT STABLE. ALL DUE MEDS GIVEN AND ALL NEEDS MET. PATIENT STATES NO COMPLICATIONS AT THIS TIME. BED LOWERED AND LOCKED, RAILS UPX3 FOR SAFETY AND ALL NEEDS IN REACH. CARE ENDORSED TO RN FOR BRADY
[2017-10-05 20:00] VITALS: BP 135/84
--- NOTE | 2017-10-05 20:00 | NUR ---
JESS RN NOTES PATIENT STABLE. PT COMPLAINS OF PAIN IN R KNEE 4/10, PAIN MEDS GIVEN AND ALL NEEDS MET. PATIENT STATES NO COMPLICATIONS AT THIS TIME. BED IN THE LOWEST AND LOCKED POSITION FOR SAFETY AND ALL NEEDS IN REACH. RN WILL CONTINUE TO MONITOR PT.
[2017-10-05] MEDS: HYDROCODONE/APAP 5/325MG 1 EACH TABLET PO PRN (20:12)
[2017-10-05] MEDS: diphenhydrAMINE HCL ELIX 25 MG/10 ML UDC PO PRN (22:24)
[2017-10-06] MEDS: ACETAMINOPHEN 325 MG TABLET PO PRN ×2 (01:08→08:41)
[2017-10-06 04:00] VITALS: BP 109/75
[2017-10-06 08:00] VITALS: BP 128/85
[2017-10-06] MEDS: CALCIUM ACETATE 667 MG TABLET PO SCH ×2 (08:19→12:45)
[2017-10-06] MEDS: ISOSORBIDE MONONITRATE 20 MG TABLET PO SCH (08:19)
[2017-10-06] MEDS: VIT B CMPLX 3/FA/VIT C/BIOTIN 1 TAB TABLET PO SCH (08:19)
[2017-10-06] MEDS: HYDROCORTISONE 1% CREAM 28.35 GM TUBE TP SCH (08:19)
[2017-10-06] MEDS: NEOMY SULF/BACITRAC ZN/POLY 15 GM TUBE TP SCH (08:19)
[2017-10-06] MEDS: CALCITRIOL ORAL SOLUTION 1 MCG/ML NG SCH (08:21)
[2017-10-06 08:23] VITALS: BP 128/85
[2017-10-06] MEDS: METOPROLOL TARTRATE 50 MG TABLET PO SCH (08:23)
[2017-10-06] MEDS: AMLODIPINE BESYLATE 10 MG TABLET PO SCH (09:00)
--- NOTE | 2017-10-06 09:15 | NUR ---
MS RN NOTES NAPPER TENDER YUNG HAMILTON AT BEDSIDE.
--- NOTE | 2017-10-06 10:00 | NUR ---
MS RN NOTES SPOKE WITH KELSIE DEAN AND PATIENT HAS OUTPATIENT HD SET UP M/W/F US [facility] [place]. PATIENT STATES HE WILL HAVE PICK HIM UP AROUND NOON
--- NOTE | 2017-10-06 11:21 | NUR ---
MS RN NOTES PATIENT FAMILY AT BEDSIDE. PATIENT PERMACATH COVERED PATIENT REQUESTING TO TAKE SHOWER.
--- NOTE | 2017-10-06 13:15 | NUR ---
MS BUSINESS RELATIONS MANAGER PATIENT LEFT IN STABLE CONDITION NO COMPLICATIONS NOTED. PER PATIENT REQUEST CALLED DR MURRIETA OFFICE AND MADE APPOINTMENT OctWednesday AT 2PM.UNABLE TO MAKE ONE FOR DR SCHMID OFFICE THEY WERE ON LUNCH. PATIENT STATED HE WILL CALL. IV REMOVED PRESSURE AND DRESSING APPLIED NO BLEEDING NOTED. ALL DUE MEDS GIVEN AND ALL NEEDS MET. PERMACATH INTACT AND CLEAN WITH DRESSING CHANGE COMPLETED WITH HD YESTERDAY 10/05. PATIENT EDUCATED ON DC MATERIAL AND STATED UNDERSTANDING. ALL BELONGINGS ACCOUNTED FOR AND SIGNED. WALKER PROVIDED TO PATIENT PER YUNG HAMILTON REQUEST. PATIENT GIVEN CD OF IMAGES FOR DR MURRIETA OFFICE. PATIENT SAID NO TO DISCHARGE PHOTOS. PATIENT ASSISTED TO CAR BY CANDIDO EVANS IN WHEELCHAIR. PATIENT LEFT IN STABLE CONDITION.
== END 2017-10-06 13:35 | disposition home or self-care (01) | DRG 291 ==
LOC: ER 10:10 → TELE-TD 11:30 → MEDSG1 14:00
PROVIDERS: ADMIT Internal Medicine; ATTEND Internal Medicine
PROC: 05HM33Z Insertion of Infusion Device into Right Internal Jugular Vein, Percutaneous Approach (ICD-10-PCS; principal; 2017-09-28)
PROC: 5A1D70Z Performance of Urinary Filtration, Intermittent, Less than 6 Hours Per Day (ICD-10-PCS; principal; 2017-09-28)
PROC: 05HM33Z Insertion of Infusion Device into Right Internal Jugular Vein, Percutaneous Approach (ICD-10-PCS; 2017-10-01)
PROC: B513YZA Fluoroscopy of Right Jugular Veins using Other Contrast, Guidance (ICD-10-PCS; 2017-10-01)
DX: I13.2 Hypertensive heart and chronic kidney disease with heart failure and with stage 5 chronic kidney disease, or end stage renal disease (principal); N18.6 End stage renal disease; N17.9 Acute kidney failure, unspecified; D69.6 Thrombocytopenia, unspecified; E87.2 Acidosis; I27.20 Pulmonary hypertension, unspecified; E83.51 Hypocalcemia; E83.39 Other disorders of phosphorus metabolism; E44.1 Mild protein-calorie malnutrition; Q61.3 Polycystic kidney, unspecified; Z79.899 Other long term (current) drug therapy; D63.8 Anemia in other chronic diseases classified elsewhere; I50.9 Heart failure, unspecified; M10.9 Gout, unspecified; Z99.2 Dependence on renal dialysis; M71.20 Synovial cyst of popliteal space [Baker], unspecified knee; L20.9 Atopic dermatitis, unspecified
CPT/HCPCS: 36415; 71010-TC; 73564-TC; 73700-TC; 73721-TC; 76770-TC; 80048-TC; 80053-TC; 80076-TC; 82962-TC; 83735-TC; 83970; 84100-TC; 84484-TC; 84550-TC; 85025-TC; 85652-TC; 86140-TC; 86706; 86803; 87040-TC; 87070-TC; 87081-TC; 87340; 87400; 89051-TC; 89060-TC; 90935-TC; 93970-TC; 97116-TC; 97530-TC; A4606; A6402; J0461; J0610; J0690; J1170; J1644; J2175; J2250; J2270; J2405; J2704; J3010; J3490; J7030; J7040; J7050; J7060; Q0163; Z7610

== ENCOUNTER 2018-02-11 06:49 | Day surgery (SDC) | payer MEDICARE, OTHER ==
[~2018-02-11 06:49] MED LIST changes: +AMLO10TA6 PO; -ATEN50TA PO; +ISOS10TA8 PO; -LISI10TA5 PO; +METO50TA16 PO
[2018-02-11] MEDS ORDERED: LIDOCAINE 1%-EPI 1:100,000 20 ML VIAL IJ ONE (06:50)
[2018-02-11] MEDS ORDERED: CEFAZOLIN SODIUM/DEXTROSE,ISO 100 ML IV ONE (07:24)
[2018-02-11] MEDS ORDERED: ATRACURIUM 100MG/10 ML MDV IV ONE (09:48)
[2018-02-11] MEDS ORDERED: BUPIVACAINE 0.25% 75 MG/30 ML VIAL ONE (09:49)
[2018-02-11] MEDS ORDERED: FENTANYL PF 100MCG/2ML AMPUL ONE ×2 (09:55→12:18)
[2018-02-11] MEDS ORDERED: KETAMINE HCL (500MG/10ML) 50 MG/ML VIAL ONE (09:55)
[2018-02-11] MEDS ORDERED: SUCCINYLCHOLINE CHLORIDE 20 MG/ML VIAL ONE (09:56)
[2018-02-11] MEDS ORDERED: HYDROCODONE/APAP 5/325MG 1 EACH TABLET PO PRN ×2 (12:00)
[2018-02-11] MEDS ORDERED: HYDROMORPHONE INJ 2 MG/ML DISP.SYRIN IV PRN (12:00)
[2018-02-11] MEDS ORDERED: ONDANSETRON HCL/PF 4 MG/2 ML VIAL IVP PRN (12:00)
[2018-05-11] MEDS ORDERED: AMLO10TA6 PO (22:13)
== END 2018-02-11 13:54 | disposition home or self-care (01) ==
LOC: DS 06:49
PROVIDERS: ATTEND Surgery
DX: I13.2 Hypertensive heart and chronic kidney disease with heart failure and with stage 5 chronic kidney disease, or end stage renal disease (principal); N18.6 End stage renal disease; I50.9 Heart failure, unspecified; K43.6 Other and unspecified ventral hernia with obstruction, without gangrene; K40.20 Bilateral inguinal hernia, without obstruction or gangrene, not specified as recurrent; I25.2 Old myocardial infarction; Z86.2 Personal history of diseases of the blood and blood-forming organs and certain disorders involving the immune mechanism
CPT/HCPCS: A4217; J0330; J0360; J0690; J1170; J1644; J2704; J3010; J3490; Z7610

== ENCOUNTER 2018-02-14 08:26 | Emergency (ER) | payer MEDICARE, OTHER ==
[~2018-02-14] VITALS: Ht 180.3 cm; Wt 83.9 kg
--- NOTE | 2018-02-14 08:48 | NUR ---
Recieved patient to ED bed 12, patient was brought in the ER by family member for abdominal pain, feeling of bloatedness since and constipation. Last BM was . Pt had s/p surgery on wednesday, peritoneal dialysis placement and hernia repair. He called his surgeon, Dr. Bhatt and was advised to go to ER. Pt is A/OX3, NAD, vss rr even and unabored. All needs are attended, kept warm and comfortable. pending er md evaluation.
--- NOTE | 2018-02-14 08:52 | NUR ---
Pt was seen and evaluated by Dr. Orosco
[2018-02-14] MEDS ORDERED: IV NS 0.9% 1,000 ML BAG IV ONE (09:00)
[2018-02-14 09:09] LABS: BASOPHILS % (AUTO) 0.2 % (0.0-2.0); EOSINOPHILS % (AUTO) 4.3 % (0.0-6.0); HEMATOCRIT 27 % (39-51); HEMOGLOBIN 8.9 g/dL (13.5-17.5); LYMPHOCYTES # (AUTO) 0.9 /CMM (0.8-4.8); LYMPHOCYTES % (AUTO) 10.8 % (20.0-44.0); MEAN CORPUSCULAR HGB CONC 33 g/dl (31.0-36.0); MEAN CORPUSCULAR VOLUME 89 fL (80-96); MONOCYTES # (AUTO) 0.7 /CMM (0.1-1.30); MONOCYTES % (AUTO) 8.6 % (2.0-12.0); NEUTROPHILS % (AUTO) 76.1 % (43.0-81.0); PLATELET COUNT (AUTO) 149 /CMM (150-450); RDW COEFFICIENT OF VARIATION 14.8 (11.5-15.0); WHITE BLOOD COUNT (AUTO) 7.9 K/uL (4.3-11.0)
[2018-02-14 09:26] LABS: ALBUMIN 3.3 g/dL (3.4-5.0); BILIRUBIN,DIRECT 0.1 mg/dL (0.0-0.2); BILIRUBIN,TOTAL 0.4 mg/dL (0.2-1.0); CALCIUM, SERUM 8.4 mg/dL (8.5-10.1); POTASSIUM 5.7 mmol/L (3.5-5.1); TOTAL PROTEIN, SERUM 6.9 g/dL (6.4-8.2)
--- NOTE | 2018-02-14 10:11 | NUR ---
Paged Dr. Bhatt for consult
[2018-02-14] MEDS ORDERED: VIT1TABL46 PO (10:25)
[2018-02-14] MEDS ORDERED: CALC667C6 PO (10:25)
[2018-02-14] MEDS ORDERED: BENA20TA9 PO (10:25)
[2018-02-14] MEDS ORDERED: NA PHOS,M-B/NA PHOS,DI-BA 1 EA ENEMA RC ONE ×2 (10:30→10:35)
--- NOTE | 2018-02-14 10:41 | NUR ---
Fleet enema administered.
--- NOTE | 2018-02-14 11:05 | NUR ---
Pt did a bowel movement. notified
--- NOTE | 2018-02-14 11:58 | NUR ---
IV removed. Catheter intact and site benign. Pressure and 4x4 applied to site. No bleeding noted. Patient discharged to home in stable condition. Written and verbal after care instructions given. Patient verbalizes understanding of instruction.
[2018-02-14 12:03] VITALS: BP 158/89
[2018-05-11] MEDS ORDERED: AMLO10TA6 PO (22:13)
== END 2018-02-14 12:03 | disposition home or self-care (01) ==
LOC: ER 08:26
DX: K59.00 Constipation, unspecified (principal); E87.5 Hyperkalemia; I12.0 Hypertensive chronic kidney disease with stage 5 chronic kidney disease or end stage renal disease; N18.6 End stage renal disease; K40.90 Unilateral inguinal hernia, without obstruction or gangrene, not specified as recurrent; K57.30 Diverticulosis of large intestine without perforation or abscess without bleeding; M10.9 Gout, unspecified; F10.10 Alcohol abuse, uncomplicated; N40.0 Benign prostatic hyperplasia without lower urinary tract symptoms; N62 Hypertrophy of breast; Z99.2 Dependence on renal dialysis
CPT/HCPCS: 36415; 80048-TC; 80076-TC; 83690-TC; 85025-TC; 87081-TC; A4606; A6402; J7030; Z7610

== ENCOUNTER 2018-05-11 17:29 | Inpatient (IN) | payer MEDICARE, OTHER ==
[~2018-05-11] VITALS: Ht 180.3 cm; Wt 83.0 kg
[~2018-05-11 17:29] MED LIST changes: -AMLO10TA6 PO; +BENA20TA2 PO; +CALC667C6 PO; -ISOS10TA8 PO; -METO50TA16 PO; +VIT1TABL46 PO
--- NOTE | 2018-05-11 17:35 | NUR ---
SHREYAS 87 FROM HD CENTER C/O SYNCOPAL EPISODE MID HD, RECEIVED 800ML NS @ HD. NOTED WITH GENERALIZED WEAKNESS. SON AT THE BS. SAFETY AND COMFORT MEASURES PROVIDED. WILL MONITOR.
--- NOTE | 2018-05-11 18:15 | NUR ---
IV ACCESS STARTED. BLOOD DRAWN FOR LABS. MEDICATED ORDERED.
[2018-05-11] MEDS ORDERED: METOCLOPRAMIDE HCL 10 MG/2 ML VIAL ONE (18:20)
--- NOTE | 2018-05-11 18:25 | NUR ---
PT TAKEN TO CT.
[2018-05-11] MEDS ORDERED: METOCLOPRAMIDE HCL 10 MG/2 ML VIAL IV ONE (18:30)
[2018-05-11] MEDS ORDERED: IV NS 0.9% 500 ML BAG IV ONE (18:30)
[2018-05-11 18:39] LABS: CALCIUM, SERUM 9.2 mg/dL (8.5-10.1)
[2018-05-11 18:48] LABS: TROPONIN I 0.047 ng/mL (0.00-0.056)
[2018-05-11 18:49] LABS: BASOPHILS % (AUTO) 0.2 % (0.0-2.0); CREATININE 8.6 mg/dL (0.6-1.3); EOSINOPHILS % (AUTO) 1.8 % (0.0-6.0); HEMATOCRIT 25 % (39-51); HEMOGLOBIN 8.4 g/dL (13.5-17.5); LYMPHOCYTES # (AUTO) 0.8 /CMM (0.8-4.8); LYMPHOCYTES % (AUTO) 10.9 % (20.0-44.0); MEAN CORPUSCULAR HEMOGLOBIN 31 PG (26.0-33.0); MEAN CORPUSCULAR HGB CONC 33 g/dl (31.0-36.0); MEAN CORPUSCULAR VOLUME 92 fL (80-96); MONOCYTES # (AUTO) 0.3 /CMM (0.1-1.30); MONOCYTES % (AUTO) 4.1 % (2.0-12.0); NEUTROPHILS # (AUTO) 6.3 /CMM (1.8-8.9); PLATELET COUNT (AUTO) 169 /CMM (150-450); RDW COEFFICIENT OF VARIATION 17.2 (11.5-15.0); RED BLOOD CELL COUNT(AUTO) 2.75 MIL/uL (4.5-6.0); WHITE BLOOD COUNT (AUTO) 7.6 K/uL (4.3-11.0)
--- NOTE | 2018-05-11 19:11 | NUR ---
RECEIVED REPORT FROM ABRIL MAE FOR BRADY.
--- NOTE | 2018-05-11 19:47 | NUR ---
CALLED NURSING SUP. FOR TELE BED
--- NOTE | 2018-05-11 20:13 | NUR ---
TELE 114-2 FOR GI BLEED, ADMITTING
--- NOTE | 2018-05-11 20:42 | NUR ---
REPORT GIVEN TO ABRIL NEVILLE FOR BRADY.
[2018-05-11 21:30] VITALS: BP 189/102
--- NOTE | 2018-05-11 21:30 | NUR ---
DIE SINKER ADMITTING NOTES RECEIVED REPORT FROM CLINT RN. PATIENT ADMITTED TO ROOM 114-[address] SLATER W/ DX GI BLEED. PATIENT A/A/O X3, ABLE TO MAKE NEEDS KNOWN. BREATHING EVEN & UNLABORED, TOLERATING ROOM AIR. NOTED W/ HIGH BP 189/102 & INCREASED HR 111. DENIED ANY CHEST PAIN OR DISCOMFORT. LEFT AC IV #20 INTACT & PATENT W/ DRESSING CDI, SALINE LOCKED. DENIED ANY OTHER PAIN OR DISCOMFORT. PATIENT STATED THAT HE HAD BLACK STOOLS X2 DAYS W/ LAST BM ON 05/10 BUT DENIED N/V/D @ THIS TIME. ORIENTED TO ROOM & INSTRUCTED TO USE CALL LIGHT FOR ASSISTANCE. SAFETY MEASURES IN PLACE. AWAITING ADMITTING ORDERS. WILL CONTINUE TO MONITOR CLOSELY.
[2018-05-11] MEDS ORDERED: METOPROLOL SUCCINATE 25 MG TAB.SR.24H PO SCH (22:00)
[2018-05-11] MEDS ORDERED: ATOR20TA PO (22:13)
[2018-05-11] MEDS ORDERED: ISOS20TA8 PO (22:13)
[2018-05-11] MEDS ORDERED: AMLO10TA2 PO (22:13)
[2018-05-11] MEDS ORDERED: METO-356 PO (22:13)
[2018-05-11] MEDS ORDERED: METOPROLOL SUCCINATE 25 MG TAB.SR.24H PO ONE (22:30)
[2018-05-11] MEDS: PANTOPRAZOLE 40 MG TABLET.DR PO SCH (23:09)
[2018-05-11] MEDS: ATORVASTATIN 10 MG TABLET PO SCH (23:10)
[2018-05-11] MEDS: AMLODIPINE BESYLATE 10 MG TABLET PO SCH (23:10)
[2018-05-12] VITALS: BP 200/94
[2018-05-12] MEDS ORDERED: CLONIDINE HCL 0.1 MG TABLET PO PRN (01:30)
[2018-05-12 04:00] VITALS: BP 128/71
[2018-05-12 07:10] LABS: BASOPHILS % (AUTO) 0.4 % (0.0-2.0); EOSINOPHILS % (AUTO) 4.4 % (0.0-6.0); HEMATOCRIT 22 % (39-51); HEMOGLOBIN 7.1 g/dL (13.5-17.5); LYMPHOCYTES # (AUTO) 1.2 /CMM (0.8-4.8); LYMPHOCYTES % (AUTO) 21.6 % (20.0-44.0); MEAN CORPUSCULAR HEMOGLOBIN 30 PG (26.0-33.0); MEAN CORPUSCULAR HGB CONC 33 g/dl (31.0-36.0); MEAN CORPUSCULAR VOLUME 93 fL (80-96); MONOCYTES # (AUTO) 0.4 /CMM (0.1-1.30); MONOCYTES % (AUTO) 6.6 % (2.0-12.0); NEUTROPHILS # (AUTO) 3.7 /CMM (1.8-8.9); PLATELET COUNT (AUTO) 162 /CMM (150-450); RDW COEFFICIENT OF VARIATION 16.5 (11.5-15.0); RED BLOOD CELL COUNT(AUTO) 2.34 MIL/uL (4.5-6.0); RETICULOCYTE COUNT 3.4 % (0.6-2.5); WHITE BLOOD COUNT (AUTO) 5.5 K/uL (4.3-11.0)
--- NOTE | 2018-05-12 07:20 | NUR ---
TELE/RN INITIAL NOTES RECEIVED PT IN BED, A/O X3, NO SOB NOTED, TOLERATING RA. NO C/O PAIN/CHEST PAIN. NO C/O N/V AT THIS TIME. SR WITH PVC ON TELEMONITOR. WITH INTACT LAC SL. WITH NO SIGN OF INFECTION NOTED. SAFETY MEASURES OBSERVED. CALL LIGHT WITHIN REACH. WILL CONT TO MONITOR
[2018-05-12 07:35] LABS: ALBUMIN 2.9 g/dL (3.4-5.0); BILIRUBIN,TOTAL 0.3 mg/dL (0.2-1.0); POTASSIUM 5.4 mmol/L (3.5-5.1); TOTAL PROTEIN, SERUM 5.6 g/dL (6.4-8.2)
[2018-05-12 07:38] LABS: CREATININE 10.2 mg/dL (0.6-1.3)
[2018-05-12 07:41] LABS: THYROID STIMULATING HORMONE 2.085 uIU/mL (0.358-3.74); URIC ACID 3.8 mg/dL (2.6-7.2)
[2018-05-12] MEDS ORDERED: ASPI-1169 PO (07:50)
[2018-05-12] MEDS ORDERED: METO25TA6 PO (07:50)
[2018-05-12 08:00] VITALS: BP 163/88
[2018-05-12] MEDS: VIT B CMPLX 3/FA/VIT C/BIOTIN 1 TAB TABLET PO SCH (08:29)
[2018-05-12] MEDS: PANTOPRAZOLE 40 MG TABLET.DR PO SCH (08:29)
[2018-05-12] MEDS: ISOSORBIDE DINITRATE (20MG) 20 MG TABLET PO SCH ×2 (08:29→17:30)
[2018-05-12] MEDS: METOPROLOL SUCCINATE 25 MG TAB.SR.24H PO SCH ×2 (08:30→21:38)
[2018-05-12] MEDS: BENAZEPRIL HCL 20 MG TABLET PO SCH (08:30)
[2018-05-12] MEDS: CALCIUM ACETATE 667 MG TABLET PO SCH (08:37)
[2018-05-12] MEDS ORDERED: METOPROLOL TARTRATE 25 MG TABLET PO SCH (09:00)
[2018-05-12] MEDS ORDERED: BENAZEPRIL HCL 20 MG TABLET PO SCH (09:00)
[2018-05-12] MEDS ORDERED: ASPIRIN 81 MG TAB.CHEW PO SCH (09:00)
[2018-05-12] MEDS ORDERED: ISOSORBIDE DINITRATE (20MG) 20 MG TABLET PO SCH (09:00)
[2018-05-12] MEDS ORDERED: VIT B CMPLX 3/FA/VIT C/BIOTIN 1 TAB TABLET PO SCH (09:00)
[2018-05-12] MEDS ORDERED: CALCIUM ACETATE 667 MG TABLET PO SCH ×2 (09:00→13:00)
--- NOTE | 2018-05-12 09:00 | NUR ---
RN NOTES RECHECKED PT'S BP. BP= 144/83, NO C/O PAIN/CHEST PAIN. WILL CONT TO MONITOR
[2018-05-12 12:00] VITALS: BP 140/80
[2018-05-12] MEDS: PANTOPRAZOLE 40 MG VIAL IV SCH ×2 (15:30→21:39)
[2018-05-12 16:00] VITALS: BP 146/82
[2018-05-12] MEDS ORDERED: MAGNESIUM CITRATE 296 ML BOTTLE PO STA (18:25)
[2018-05-12] MEDS ORDERED: PEG 3350/NA SULF,BICARB,CL/KCL 4,000 ML BOTTLE PO STA (18:25)
[2018-05-12] MEDS ORDERED: NA PHOS,M-B/NA PHOS,DI-BA 1 EA ENEMA RC PRN (18:30)
--- NOTE | 2018-05-12 19:00 | NUR ---
RN NOTES PT IN STABLE CONDITION. NO C/O PAIN. NO SIGNS OF BLEEDING NOTED. SAFETY MEASURES OBSERVED AT ALL TIMES. ENDORSED TO PM SHIFT NURSE THAT PT IS FOR EGD WITH COLONOSCOPY, PT CURRENTLY ON CLEAR LIQUID DIET, NPO POST MN, BOWEL PREP WHEN MEDS AVAIL
[2018-05-12 19:01] LABS: OCCULT BLOOD STOOL POSITIVE (NEGATIVE)
[2018-05-12 20:00] VITALS: BP 134/83
[2018-05-12] MEDS: AMLODIPINE BESYLATE 10 MG TABLET PO SCH (21:38)
[2018-05-12] MEDS: ATORVASTATIN 10 MG TABLET PO SCH (21:38)
[2018-05-12] MEDS ORDERED: ATORVASTATIN 10 MG TABLET PO SCH (22:00)
[2018-05-12] MEDS ORDERED: AMLODIPINE BESYLATE 10 MG TABLET PO SCH (22:00)
[2018-05-13] VITALS (7 sets, daily range): BP systolic 116–164; BP diastolic 72–78
--- NOTE | 2018-05-13 06:22 | NUR ---
FLIGHT MECHANIC NOTES PT'S STOOLS STILL NOT CLEAR. CALLED DR HAMPTON'S EXCHANGE. UNABLE TO CONNECT TO TACK CUTTER NOTIFIED DR. HAMPTON'S NATURAL GAS INSPECTOR REGARDING STOOLS NOT CLEAR. LEFT A MESSAGE. AWAITING FOR REPLY. WILL CONTINUE TO MONITOR.
[2018-05-13 06:32] LABS: BASOPHILS % (AUTO) 0.4 % (0.0-2.0); EOSINOPHILS % (AUTO) 4.9 % (0.0-6.0); HEMATOCRIT 22 % (39-51); HEMOGLOBIN 7.3 g/dL (13.5-17.5); LYMPHOCYTES # (AUTO) 1.6 /CMM (0.8-4.8); LYMPHOCYTES % (AUTO) 23.2 % (20.0-44.0); MEAN CORPUSCULAR HEMOGLOBIN 31 PG (26.0-33.0); MEAN CORPUSCULAR HGB CONC 33 g/dl (31.0-36.0); MEAN CORPUSCULAR VOLUME 93 fL (80-96); MONOCYTES # (AUTO) 0.5 /CMM (0.1-1.30); MONOCYTES % (AUTO) 6.9 % (2.0-12.0); NEUTROPHILS # (AUTO) 4.3 /CMM (1.8-8.9); NEUTROPHILS % (AUTO) 64.6 % (43.0-81.0); PLATELET COUNT (AUTO) 151 /CMM (150-450); RDW COEFFICIENT OF VARIATION 16.5 (11.5-15.0); RED BLOOD CELL COUNT(AUTO) 2.39 MIL/uL (4.5-6.0); WHITE BLOOD COUNT (AUTO) 6.7 K/uL (4.3-11.0)
--- NOTE | 2018-05-13 06:46 | NUR ---
ORACLE SOA CONSULTANT NOTES AWAKE & RESPONSIVE. NOT IN ANY DISTRESS. NO SOB NOTED. DENIES ANY PAIN OR DISCOMFORT AT THIS TIME. ON TELE SR @ 77 WITH IV-HL PATENT & INTACT. MONITORED ACCORDINGLY. CALL LIGHT WITHIN REACH. BED IN LOWEST POSITION. SR UP X 2 FOR SAFETY. WILL ENDORSE TO NEXT SHIFT.
[2018-05-13 07:02] LABS: CALCIUM, SERUM 8.4 mg/dL (8.5-10.1); MAGNESIUM 2.3 mg/dL (1.8-2.4); PHOSPHORUS 5.9 mg/dL (2.5-4.9); POTASSIUM 5.7 mmol/L (3.5-5.1)
[2018-05-13 07:07] LABS: CREATININE 12.1 mg/dL (0.6-1.3)
--- NOTE | 2018-05-13 07:30 | NUR ---
BEACH PATROL LIEUTENANT INITIAL NOTES: RECEIVED PT IN BED SLEEPING, EASY TO AROUSE. ON ROOM AIR, NO RESPIRATORY DISTRESS NOTED AT THIS TIME. DENIES ANY PAIN OR DISCOMFORT. NPO DUE TO COLONOSCOPY AND EGD TO BE DONE THIS MORNING AT 1130. PER ASSOCIATE DESIGNER NURSELISETTE GIVEN. 3/4 CONSUMED. PT STATES HE IS UNABLE TO FINISH THE REST. ON TELE MONITOR SR, HR 76. SKIN INTACT. IV TO L HAND #20 GAUGE, RT. CHEST WALL HD CATH AND L ABD PERITONEAL DIALYSIS CATH IN PLACE. BED IN LOW LOCKED POSITION, CALL LIGHT WITHIN REACH. PLAN OF CARE DISCUSSED WITH PT. WILL CONTINUE TO MONITOR.
[2018-05-13 08:11] LABS: ERYTHROPOIETIN 24.7 mIU/mL (2.6-18.5)
[2018-05-13] MEDS: ISOSORBIDE DINITRATE (20MG) 20 MG TABLET PO SCH ×2 (09:00→16:17)
[2018-05-13] MEDS: METOPROLOL SUCCINATE 25 MG TAB.SR.24H PO SCH ×2 (09:00→21:46)
[2018-05-13] MEDS: CALCIUM ACETATE 667 MG TABLET PO SCH (09:00)
[2018-05-13] MEDS: VIT B CMPLX 3/FA/VIT C/BIOTIN 1 TAB TABLET PO SCH (09:00)
[2018-05-13] MEDS: ASPIRIN 81 MG TAB.CHEW PO SCH (09:00)
[2018-05-13] MEDS: BENAZEPRIL HCL 20 MG TABLET PO SCH (09:00)
--- NOTE | 2018-05-13 09:40 | NUR ---
RN M/S NOTES: PER WIRE WINDER FOR DR. HAMPTON, GIVE FLEET ENEMA X2 IF STOOL NOT CLEAR FOR EGD/COLONOSCOPY. CARRIED OUT.
[2018-05-13] MEDS: PANTOPRAZOLE 40 MG VIAL IV SCH ×2 (09:45→16:16)
--- NOTE | 2018-05-13 10:00 | NUR ---
DIALYSIS NOTES: HD AT BEDSIDE UNTIL 1000. 3L REMOVED. PT TOLERATED WELL.
[2018-05-13] MEDS ORDERED: NA PHOS,M-B/NA PHOS,DI-BA 1 EA ENEMA RC PRN (11:00)
--- NOTE | 2018-05-13 11:20 | NUR ---
FLEET ENEMA GIVEN X2. STOOL NOW LIQUID AND CLEAR.
--- NOTE | 2018-05-13 11:30 | NUR ---
ECHO BEING DONE AT BEDSIDE
--- NOTE | 2018-05-13 11:50 | NUR ---
SPOKE WITH JESUS IN OR. PROCEDURE TO BE DONE AROUND 1230 TODAY. PT AND AWARE.
--- NOTE | 2018-05-13 13:30 | NUR ---
PT LEFT FOR EGD/COLONOSCOPY AT 12:15PM AND RETURNED AT 1330. POST OP ORDERS RECEIVED FOR CLEAR LIQUIDS FOR FIRST MEAL THEN ADVANCE TO REGULAR DIET. RESUME PRE OP ORDERS. PT STABLE AT THIS TIME. WILL CONTINUE TO MONITOR.
--- NOTE | 2018-05-13 14:18 | NUR ---
CLARIFIED WITH DR LORENZANA. D/C IV FLUIDS
[2018-05-13] MEDS ORDERED: EPOETIN ALFA (10,000 UNIT) 10,000 UNIT/ML VIAL IV ONE (15:00)
--- NOTE | 2018-05-13 17:28 | NUR ---
PT VOMITED X1, C/O NAUSEA. DR JEMMA SCHMID GARMENT TURNER FOR DR LORENZANA. NEW ORDER RECEIVED FOR ZOFRAN 4MG IV Q6 PRN. CARRIED OUT.PT AWARE.
[2018-05-13] MEDS ORDERED: ONDANSETRON HCL/PF 4 MG/2 ML VIAL IV PRN (17:30)
--- NOTE | 2018-05-13 19:00 | NUR ---
RN M/S END NOTES: ZOFRAN EFFECTIVE. NO MORE EPISODES OF VOMITING, PT DENIES NAUSEA AT THIS TIME. REMAINS IN BED RESTING, A&O X4. DENIES ANY PAIN OR DISCOMFORT AT THIS TIME. ON ROOM AIR, SATURATING 96%. AT BEDSIDE. VS STABLE. BED IN LOW LOCKED POSITION, CALL LIGHT WITHIN REACH. WILL ENDORSE TO PM SHIFT FOR CONTINUITY OF CARE.
--- NOTE | 2018-05-13 20:00 | NUR ---
WALE RN NOTES RECEIVED BEDSIDE REPORT ,PT IN BED AWAKE , ON ROOM AIR, NO RESPIRATORY DISTRESS NOTED AT THIS TIME. DENIES ANY PAIN OR DISCOMFORT. PT IS A/O X4. V/S ARE WNL. SKIN INTACT. IV TO L AC #20 GAUGE, PATIENT, INTACT. GOT A REPORT FROM AM NURSE JAILENE PT HAD HD 05/13/18 AND 3L WAS OUT. R CHEST WALL HD CATH AND L ABD PERITONEAL DIALYSIS CATH IN PLACE. BED IN LOW LOCKED POSITION, CALL LIGHT WITHIN REACH. PLAN OF CARE DISCUSSED WITH PT. WILL CONTINUE TO MONITOR.
[2018-05-13] MEDS: AMLODIPINE BESYLATE 10 MG TABLET PO SCH (21:46)
[2018-05-13] MEDS: ATORVASTATIN 10 MG TABLET PO SCH (21:47)
[2018-05-14 04:00] VITALS: BP 147/75
[2018-05-14 06:30] LABS: BASOPHILS % (AUTO) 0.3 % (0.0-2.0); EOSINOPHILS % (AUTO) 2.7 % (0.0-6.0); HEMATOCRIT 22 % (39-51); HEMOGLOBIN 7.1 g/dL (13.5-17.5); LYMPHOCYTES # (AUTO) 1.5 /CMM (0.8-4.8); LYMPHOCYTES % (AUTO) 21.3 % (20.0-44.0); MEAN CORPUSCULAR HEMOGLOBIN 30 PG (26.0-33.0); MEAN CORPUSCULAR HGB CONC 33 g/dl (31.0-36.0); MEAN CORPUSCULAR VOLUME 93 fL (80-96); MONOCYTES # (AUTO) 0.7 /CMM (0.1-1.30); MONOCYTES % (AUTO) 9.8 % (2.0-12.0); NEUTROPHILS # (AUTO) 4.6 /CMM (1.8-8.9); NEUTROPHILS % (AUTO) 65.9 % (43.0-81.0); PLATELET COUNT (AUTO) 138 /CMM (150-450); RDW COEFFICIENT OF VARIATION 15.9 (11.5-15.0); RED BLOOD CELL COUNT(AUTO) 2.35 MIL/uL (4.5-6.0); WHITE BLOOD COUNT (AUTO) 6.9 K/uL (4.3-11.0)
[2018-05-14 07:24] LABS: CALCIUM, SERUM 7.7 mg/dL (8.5-10.1); MAGNESIUM 2.2 mg/dL (1.8-2.4); PHOSPHORUS 5.3 mg/dL (2.5-4.9); POTASSIUM 4.6 mmol/L (3.5-5.1)
[2018-05-14 07:37] LABS: CREATININE 10.4 mg/dL (0.6-1.3)
[2018-05-14 08:00] VITALS: BP 157/89
[2018-05-14] MEDS: ASPIRIN 81 MG TAB.CHEW PO SCH (09:00)
[2018-05-14] MEDS: PANTOPRAZOLE 40 MG VIAL IV SCH (09:09)
[2018-05-14] MEDS: METOPROLOL SUCCINATE 25 MG TAB.SR.24H PO SCH (09:09)
[2018-05-14] MEDS: VIT B CMPLX 3/FA/VIT C/BIOTIN 1 TAB TABLET PO SCH (09:10)
[2018-05-14] MEDS: CALCIUM ACETATE 667 MG TABLET PO SCH (09:10)
[2018-05-14] MEDS: BENAZEPRIL HCL 20 MG TABLET PO SCH (09:10)
[2018-05-14] MEDS: ISOSORBIDE DINITRATE (20MG) 20 MG TABLET PO SCH (09:10)
[2018-05-14 12:00] VITALS: BP 167/93
[2018-05-14 13:02] VITALS: BP 168/99
[2018-05-14 13:03] VITALS: BP_SYST 158; BP_SYST 160; BP_DIAS 91; BP_DIAS 93
--- NOTE | 2018-05-14 14:00 | NUR ---
RN NOTES: OFFERED CLONIDINE ORDERED WHEN BP 167/[address] SCHMID CAME TO SEE PT AND STATED TO DO ORTHO BP, DONE AND CHARTED. DISCHARGE INSTRUCTIONS GIVEN REGARDING MEDICATIONS, FOLLOW UP APPOINTMENTS, DIET AND ACTIVITIES. HL REMOVED. ENCOURAGED FOR QUESTIONS, NONE RAISED.
== END 2018-05-14 14:25 | disposition home or self-care (01) | DRG 377 ==
LOC: ER 17:35 → TELE1 20:49 → MEDSG1 05-13 09:06
PROVIDERS: ADMIT Internal Medicine; ATTEND Internal Medicine
PROC: 0DJD8ZZ Inspection of Lower Intestinal Tract, Via Natural or Artificial Opening Endoscopic (ICD-10-PCS; 2018-05-13)
PROC: 0DJ08ZZ Inspection of Upper Intestinal Tract, Via Natural or Artificial Opening Endoscopic (ICD-10-PCS; principal; 2018-05-13 12:39)
PROC: 5A1D70Z Performance of Urinary Filtration, Intermittent, Less than 6 Hours Per Day (ICD-10-PCS; 2018-05-13 12:39)
DX: K25.0 Acute gastric ulcer with hemorrhage (principal); N18.6 End stage renal disease; E44.1 Mild protein-calorie malnutrition; I13.2 Hypertensive heart and chronic kidney disease with heart failure and with stage 5 chronic kidney disease, or end stage renal disease; I50.9 Heart failure, unspecified; Z99.2 Dependence on renal dialysis; Z79.82 Long term (current) use of aspirin; Z79.899 Other long term (current) drug therapy; T39.395A Adverse effect of other nonsteroidal anti-inflammatory drugs [NSAID], initial encounter; Y92.009 Unspecified place in unspecified non-institutional (private) residence as the place of occurrence of the external cause; D63.8 Anemia in other chronic diseases classified elsewhere; E87.5 Hyperkalemia; E55.9 Vitamin D deficiency, unspecified; K29.80 Duodenitis without bleeding; K20.9 Esophagitis, unspecified; K29.70 Gastritis, unspecified, without bleeding
CPT/HCPCS: 36415; 70450-TC; 71045-TC; 80048-TC; 80053-TC; 82272-TC; 82306; 82378; 82668; 82728-TC; 83010; 83540-TC; 83615-TC; 83735-TC; 84100-TC; 84443-TC; 84484-TC; 84550-TC; 85025-TC; 85045-TC; 85652-TC; 87081-TC; 88305-TC; 88313-TC; 88342; 90935-TC; 93307-TC; A6253; A6402; C9113; J0885; J2405; J2765; J7040

== ENCOUNTER 2019-03-13 16:25 | Inpatient (IN) | payer MEDICARE, OTHER ==
[~2019-03-13] VITALS: Ht 180.3 cm; Wt 86.6 kg
[~2019-03-13 16:25] MED LIST changes: +AMLO10TA7 PO; +ASPI-1169 PO; +ATOR20TA PO; -BENA20TA2 PO; +BENA20TA9 PO; +ISOS20TA8 PO; +METO25TA6 PO
--- NOTE | 2019-03-13 16:34 | NUR ---
pt to ed bed 10 c/o black tarry stool this morning. endorses taking ibuprofen for his back pain. pt is dialysis pt. last dialisis was wednesday. gowned and placed on monitor. awaiting md shah.
--- NOTE | 2019-03-13 16:45 | NUR ---
IV LINE STARTED BLOOD DRAWN AND SENT TO LAB.
--- NOTE | 2019-03-13 16:47 | NUR ---
DR BONILLA AT BEDSIDE FOR EVAL.
[2019-03-13 16:57] LABS: BASOPHILS # (AUTO) 0.1 /CMM (0.0-0.2); BASOPHILS % (AUTO) 0.4 % (0.0-2.0); EOSINOPHILS % (AUTO) 1.2 % (0.0-6.0); HEMATOCRIT 21 % (39-51); LYMPHOCYTES # (AUTO) 1.2 /CMM (0.8-4.8); LYMPHOCYTES % (AUTO) 7.8 % (20.0-44.0); MEAN CORPUSCULAR HGB CONC 33 g/dl (31.0-36.0); MEAN CORPUSCULAR VOLUME 98 fL (80-96); MONOCYTES % (AUTO) 6.7 % (2.0-12.0); NEUTROPHILS % (AUTO) 83.9 % (43.0-81.0); PLATELET COUNT (AUTO) 186 /CMM (150-450); RED BLOOD CELL COUNT(AUTO) 2.09 MIL/uL (4.5-6.0); WHITE BLOOD COUNT (AUTO) 15.5 K/uL (4.3-11.0)
[2019-03-13 16:59] LABS: HEMOGLOBIN 6.7 g/dL (13.5-17.5)
[2019-03-13] MEDS ORDERED: PANTOPRAZOLE 40 MG VIAL IV ONE (17:00)
[2019-03-13] MEDS ORDERED: IV NS 0.9% 500 ML BAG IV ONE (17:00)
[2019-03-13] MEDS ORDERED: ONDANSETRON HCL/PF 4 MG/2 ML VIAL IV ONE (17:00)
[2019-03-13] MEDS ORDERED: PANTOPRAZOLE 80 MG in IV NS 0.9% 500 ML IV PRN ×2 (17:00→21:00)
[2019-03-13] MEDS ORDERED: ONDANSETRON HCL/PF 4 MG/2 ML VIAL ONE (17:00)
[2019-03-13] MEDS ORDERED: PANTOPRAZOLE 40 MG VIAL ONE (17:04)
[2019-03-13 17:11] LABS: ALBUMIN 2.9 g/dL (3.4-5.0); BILIRUBIN,DIRECT 0.1 mg/dL (0.0-0.2); BILIRUBIN,TOTAL 0.3 mg/dL (0.2-1.0); CALCIUM, SERUM 9.1 mg/dL (8.5-10.1); POTASSIUM 5.5 mmol/L (3.5-5.1); TOTAL PROTEIN, SERUM 5.7 g/dL (6.4-8.2)
[2019-03-13 17:12] LABS: CREATININE 15.4 mg/dL (0.6-1.3)
--- NOTE | 2019-03-13 17:15 | NUR ---
CALLED DR AGUILA'S OFFICE. WAS PAGED.
[2019-03-13] MEDS ORDERED: PANT40TA2 PO (17:23)
--- NOTE | 2019-03-13 17:34 | NUR ---
CALLED HOUSE SUP FOR TELE BED
[2019-03-13 17:35] LABS: EOSINOPHILS % (MANUAL) 1 % (0-4); LYMPHOCYTES % (MANUAL) 6 % (16-48); MONOCYTES % (MANUAL) 7 % (0-11.0); NEUTROPHILS % (MANUAL) 86 (42-76)
--- NOTE | 2019-03-13 17:51 | NUR ---
TELE BED 304-2
--- NOTE | 2019-03-13 17:58 | NUR ---
REPORT GIVEN TO TERRA GRIFFITHS. PT AWAITING TRANSFER TO FLOOR.
--- NOTE | 2019-03-13 20:04 | NUR ---
RN NOTES CALLED DR. AGUILA'S OFFICE, TO OBTAIN ADMITTING ORDERS, SPOKE TO LAY OUT HELPER MATT, DR. AGUILA IS BUSY WITH OTHER PATIENT AT THIS TIME, PER MD MATT WILL CALL RN FOR ADMITTING ORDERS LATER. NOTED.
--- NOTE | 2019-03-13 20:23 | NUR ---
RN NOTES PATIENT IS WITH FAMILY MEMBERS AT THIS TIME, RESTING IN HIS ROOM, TELE MONITOR READS SINUS TACH 103, NO SHORTNESS OF BREATH AT THIS TIME, WITH SLIGHT DISCOMFORT, WILL MONITOR ACCORDINGLY.
[2019-03-13] MEDS ORDERED: Z GUARD REMEDY 2 OZ OINT TP PRN (21:00)
[2019-03-13] MEDS ORDERED: MAG HYDROX/AL HYDROX/SIMETH 30 ML UDC PO PRN (21:00)
[2019-03-13] MEDS ORDERED: ACETAMINOPHEN 325 MG TABLET PO PRN (21:00)
[2019-03-13] MEDS ORDERED: HYDROCODONE/APAP 5/325MG 1 EACH TABLET PO PRN (21:00)
[2019-03-13] MEDS ORDERED: ZOLPIDEM TARTRATE 5 MG TABLET PO PRN (21:00)
--- NOTE | 2019-03-13 21:30 | NUR ---
RN NOTES RECEIVED ADMITTING ORDERS FROM DR. AGUILA, NOTED AND CARRIED OUT.
[2019-03-13 22:28] LABS: BASOPHILS % (AUTO) 0.3 % (0.0-2.0); EOSINOPHILS % (AUTO) 1.4 % (0.0-6.0); LYMPHOCYTES # (AUTO) 1.8 /CMM (0.8-4.8); LYMPHOCYTES % (AUTO) 11.6 % (20.0-44.0); MEAN CORPUSCULAR HGB CONC 33 g/dl (31.0-36.0); MEAN CORPUSCULAR VOLUME 98 fL (80-96); MONOCYTES # (AUTO) 0.9 /CMM (0.1-1.30); MONOCYTES % (AUTO) 5.9 % (2.0-12.0); NEUTROPHILS # (AUTO) 12.4 /CMM (1.8-8.9); NEUTROPHILS % (AUTO) 80.8 % (43.0-81.0); PLATELET COUNT (AUTO) 171 /CMM (150-450); WHITE BLOOD COUNT (AUTO) 15.4 K/uL (4.3-11.0)
[2019-03-13 22:34] LABS: RED BLOOD CELL COUNT(AUTO) 1.77 MIL/uL (4.5-6.0)
[2019-03-13 22:37] LABS: HEMATOCRIT 17 % (39-51); HEMOGLOBIN 5.6 g/dL (13.5-17.5)
--- NOTE | 2019-03-13 23:00 | NUR ---
RN NOTES REPORT GIVEN TO NURSE WOUND CARE MOHIT, PATIENT TO TRANSFER TO ICU FOR CLOSE MONITORING PER DR. AGUILA FOR HGB 5.6 HCT 17.
[2019-03-13 23:04] LABS: EOSINOPHILS % (MANUAL) 1 % (0-4); LYMPHOCYTES % (MANUAL) 13 % (16-48); MONOCYTES % (MANUAL) 6 % (0-11.0); NEUTROPHILS % (MANUAL) 80 (42-76)
[2019-03-13] MEDS: AMLODIPINE BESYLATE 10 MG TABLET PO SCH (23:04)
--- NOTE | 2019-03-13 23:10 | NUR ---
CRUSHER PLANT OPERATOR RCD PT FROM TELE; DX GI BLEED. PT IS A/[address] ON MONITOR. BP ELEVATED. PT TRANSFERRED TO ICU TO TRANSFUSE 2 UNITS PRBC HG 5.6; NO S/O BLEEDING AT THIS TIME. CONTINUE TO MONITOR. PT ORIENTED TO ROOM AND PLAN OF CARE.
[2019-03-13 23:16] VITALS: BP 162/91
--- NOTE | 2019-03-13 23:20 | NUR ---
CLAIMS PROCESSOR RCD CALL FROM MIKHAIL GOVERNMENT AUDITOR; W/ORDERS TO DC PROTONIX DRIP. PER GOVERNMENT AUDITOR DR PHILLIP WILL SEE PT TOMORROW.
[2019-03-13 23:30] VITALS: BP 163/95
[2019-03-13 23:49] VITALS: BP 167/93
--- NOTE | 2019-03-13 23:50 | NUR ---
AUTO OVERHAULER FIRST UNIT OF PRBC TRANSFUSION STARTED. EXPLAINED PT S/S OF POSSIBLE REACTIONS. PT VERBALIZED UNDERSTANDING. CONTINUE TO MONITOR.
[2019-03-14] VITALS (39 sets, daily range): BP systolic 134–190; BP diastolic 77–108
[2019-03-14] MEDS: ONDANSETRON HCL/PF 4 MG/2 ML VIAL IVP PRN (00:15)
--- NOTE | 2019-03-14 00:15 | NUR ---
MACHINE CEMENTER AND FOLDER ASSISTED PT TO BATHROOM; PT C/O DIZZINESS AND NAUSEA. PT GIVEN ZOFRAN FOR NAUSEA. PT BM NOTED TO BE A SMALL BLACK LUMP.
--- NOTE | 2019-03-14 00:30 | NUR ---
ROUTE DELIVERY CLERK MD NOTIFIED ABOUT SBP 170; WITH ORDERS TO CONTINUE MONITORING.
--- NOTE | 2019-03-14 01:47 | NUR ---
PASTING MACHINE OFFBEARER PT ENDORSED TO TAMIA FOR BRADY.
--- NOTE | 2019-03-14 02:00 | NUR ---
HUMAN SERVICES SUPERVISOR NOTES RECEIVED REPORT FROM MOHIT SAMUELS FOR BRADY. PATIENT ASLEEP IN BED, EASILY AROUSABLE. BLOOD TRANSFUSION IN PROGRESS. NO SIGNS OF COMPLICATION NOTED.
--- NOTE | 2019-03-14 03:20 | NUR ---
FIELD LABORATORY OPERATOR NOTES 1ST UNIT PRBC TRANSFUSED. NO S/S OF ADVERSE REACTIONS NOTED. VSS.
--- NOTE | 2019-03-14 03:30 | NUR ---
RECORD RETRIEVAL SPECIALIST NOTES 2ND UNIT PRBC TRANSFUSION STARTED. CHECKED & VERIFIED W/ 2ND RN. WILL MONITOR FOR ADVERSE REACTIONS.
[2019-03-14] MEDS: HYDROMORPHONE INJ 0.5 MG/0.5 ML SYRINGE IV PRN ×2 (04:50→11:48)
--- NOTE | 2019-03-14 06:28 | NUR ---
LIAISON PLANNER NOTES 2ND UNIT PRBC TRANSFUSED. NO ADVERSE REACTIONS NOTED. VSS.
[2019-03-14 07:42] LABS: BASOPHILS % (AUTO) 0.1 % (0.0-2.0); HEMATOCRIT 24 % (39-51); LYMPHOCYTES % (AUTO) 10.9 % (20.0-44.0); MEAN CORPUSCULAR HGB CONC 33 g/dl (31.0-36.0); MEAN CORPUSCULAR VOLUME 91 fL (80-96); MONOCYTES # (AUTO) 0.9 /CMM (0.1-1.30); NEUTROPHILS # (AUTO) 15.1 /CMM (1.8-8.9); PLATELET COUNT (AUTO) 183 /CMM (150-450); RED BLOOD CELL COUNT(AUTO) 2.64 MIL/uL (4.5-6.0); WHITE BLOOD COUNT (AUTO) 18.4 K/uL (4.3-11.0)
[2019-03-14 07:59] LABS: CALCIUM, SERUM 8.8 mg/dL (8.5-10.1); MAGNESIUM 2.1 mg/dL (1.8-2.4); PHOSPHORUS 2.8 mg/dL (2.5-4.9); POTASSIUM 4.3 mmol/L (3.5-5.1)
[2019-03-14] MEDS: CALCIUM ACETATE 667 MG TABLET PO SCH ×3 (08:00→17:22)
--- NOTE | 2019-03-14 08:23 | NUR ---
INFECTIOUS DISEASE PHYSICIAN NOTES: ROUNDING (DR. MACDONALD) PT BECAME CONFUSED, DIAPHORETIC, AND STATED THAT HE FELT A "LITTLE DIZZY" DURING HD. HE THEN BECAME UNRESPONSIVE WITH JERKY MOVEMENTS FOR ABOUT 1MINUTE. THIS WAS SUSTAINED FOR ABOUT 1 MINUTE. HE THEN REGAINED CONSCIOUSNESS. PT SUSTAINED A PULSE, BP AND VITALS STABLE. BS 101. MANUAL BP TAKEN (145/86). DR MACDONALD AT BEDSIDE TO WITNESS EVENT. VERBAL ORDERS OBTAINED FOR STAT EKG, ECHO, AND DOPAMINE DRIP ON STANDBY FOR LOW BP. EKG SHOWED SINUS TACHYCARDIA WITH PVCs. MD MADE AWARE. MD STATES THAT HE WILL CONTACT NEUROLOGIST FOR FURTHER EVALUATION, STATING THAT IT MAY BE A VAGAL RESPONSE PT WAS ALSO ON THE BEDPAN OR AN ANOXIC SEIZURE.
[2019-03-14] MEDS ORDERED: DOPamine 400 MG/D5W 250 ML RTU PIGGYBACK IV PRN (08:30)
--- NOTE | 2019-03-14 08:45 | NUR ---
HD COMPLETE. 1.5L REMOVED
[2019-03-14] MEDS: VIT B CMPLX 3/FA/VIT C/BIOTIN 1 TAB TABLET PO SCH (09:00)
[2019-03-14] MEDS ORDERED: PANTOPRAZOLE 40 MG VIAL IV SCH (09:00)
[2019-03-14] MEDS: BENAZEPRIL HCL 20 MG TABLET PO SCH (09:00)
[2019-03-14] MEDS: SUCRALFATE 1 G TABLET PO SCH ×4 (09:00→21:11)
--- NOTE | 2019-03-14 09:00 | NUR ---
EQUIPMENT DETAILER NOTES: EGD DR PHILLIP AT BEDSIDE AND EXPLAINED PROCEDURE TO PT. PT AGREED AND SIGNED ALL CONSENTS. PT TO REMAINS NPO UNTIL PROCEDURE
--- NOTE | 2019-03-14 09:33 | NUR ---
PT TAKEN FOR EGD IN STABLE CONDITION BY OR STAFF. VSS
[2019-03-14] MEDS ORDERED: ANESTHESIA TRAY IN PYXIS 1 EA TRAY MC ONE (09:37)
--- NOTE | 2019-03-14 11:00 | NUR ---
DOPAMINE DRIP HUNG AT BEDSIDE PER DR. MACDONALD'S ORDER MED NOT SCANNED IT IS NOT BEING ADMINISTERED AT THIS TIME
--- NOTE | 2019-03-14 11:00 | NUR ---
PT BACK FROM EGD. ORDERS NOTED BY MD. PT SEEN WITH PRE PYLORIC ULCER WHICH WAS CAUTERIZED. VSS.
--- NOTE | 2019-03-14 11:30 | NUR ---
SALESPERSON BOOKS NOTES: MD UPDATE (DR AMARAL) MADE AWARE OF SYNCOPAL EPISODES IN AM, EGD RESULTS, AND RADIOLOGIST RECOMMENDATION FOR A LUMBER CT OPPOSE TO LUMBER XRAY. AGGREES TO CT AND STATES THAT HE WILL CONTACT DR. DIAZ Addendum: 03/14/19 at 1157 by TARA GILL RN * DR. ANN FOR NEURO CONSULT
[2019-03-14] MEDS: SOD FERRIC GLUC 125 MG in IV NS 0.9% 100 ML IV SCH (13:21)
[2019-03-14] MEDS: PANTOPRAZOLE 40 MG VIAL IV SCH (17:23)
--- NOTE | 2019-03-14 18:50 | NUR ---
VESSEL CAPTAIN CLOSING NOTES PT REMAINS STABLE. ALL NEEDS MET DURING SHIFT AND ORDERS CARRIED OUT ACCORDINGLY. ALL DUE MEDS GIVEN. PRN CARE RENDERED WITH THE EXCEPTION OF A BED BATH WHICH THE PT HAS ASKED TO HAVE AT A LATER TIME. NO FURTHER SYNCOPAL EPISODES POST THOSE WITNESSED IN THE MORNING. PT SEEN BY DR FREDERICK, NO NEW ORDERS AT THIS TIME. VSS. WILL ENDORSE TO NIGHTSHIFT RN FOR BRADY
--- NOTE | 2019-03-14 19:15 | NUR ---
ICU/RN INITIAL NOTES RECEIVED PT IN BED, FAMILY AT BEDSIDE. A/OX4. S/P EGD. SR ON TELE. C/O DISCOMFORT ON BACK WHEN MOVING, PT VERBALIZED, PAIN IS TOLERABLE AT THIS TIME AND NO NEED FOR PAIN MEDS. ON 2L O2 VIA NC, NO SOB NOTED. RAC G20 AND RFA G20 PATENT, C/D/I. RCW HD CATH AND RLQ PERITONEAL CATH C/D/I. NO OVERT SIGNS OF BLEEDING NOTED. SAFETY MEASURES IN PLACED. CALL LIGHT WITHIN EASY REACH. WILL CONT TO MONITOR PT AND FAMILY REQUESTED TO TANK OFFICER TO FIRST TO NOTIFY TO PT'S SON, LEIGH MARIA AND DENA GARCIA (COUSIN) . CONTACT NUMBERS PLACED ON PT'S CHART.
[2019-03-14] MEDS: MUPIROCIN OINT 2% 22 GM TUBE SCH (21:11)
[2019-03-14] MEDS: AMLODIPINE BESYLATE 10 MG TABLET PO SCH (21:18)
--- NOTE | 2019-03-14 22:00 | NUR ---
RN NOTES NOTED PT WITH ELEVATED BP ON 160S TO 190S SBP. PT DENIES CHEST PAIN/OTHER PAIN. PT DOES NOT HAVE PRN MEDS. WILL NOTIFY
--- NOTE | 2019-03-14 22:45 | NUR ---
RN NOTES NO CALL BACK FROM MD RECEIVED. CALLED NEPHRO EXCHANGED AGAIN. AWAITING FOR CALL BACK FROM
[2019-03-14] MEDS ORDERED: CLONIDINE HCL 0.1 MG TABLET PO PRN (23:30)
[2019-03-15] VITALS (25 sets, daily range): BP systolic 139–169; BP diastolic 77–102
[2019-03-15 05:04] LABS: BASOPHILS % (AUTO) 0.2 % (0.0-2.0); EOSINOPHILS % (AUTO) 2.1 % (0.0-6.0); LYMPHOCYTES # (AUTO) 1.5 /CMM (0.8-4.8); LYMPHOCYTES % (AUTO) 11.4 % (20.0-44.0); MEAN CORPUSCULAR HGB CONC 34 g/dl (31.0-36.0); MEAN CORPUSCULAR VOLUME 92 fL (80-96); MONOCYTES # (AUTO) 0.7 /CMM (0.1-1.30); MONOCYTES % (AUTO) 5.1 % (2.0-12.0); NEUTROPHILS # (AUTO) 10.8 /CMM (1.8-8.9); NEUTROPHILS % (AUTO) 81.2 % (43.0-81.0); PLATELET COUNT (AUTO) 159 /CMM (150-450); RED BLOOD CELL COUNT(AUTO) 2.05 MIL/uL (4.5-6.0); WHITE BLOOD COUNT (AUTO) 13.3 K/uL (4.3-11.0)
[2019-03-15 05:23] LABS: CALCIUM, SERUM 8.5 mg/dL (8.5-10.1); MAGNESIUM 2.1 mg/dL (1.8-2.4); PHOSPHORUS 4.8 mg/dL (2.5-4.9); POTASSIUM 5.6 mmol/L (3.5-5.1)
[2019-03-15 05:24] LABS: CREATININE 14.5 mg/dL (0.6-1.3)
[2019-03-15 05:28] LABS: HEMATOCRIT 19 % (39-51); HEMOGLOBIN 6.3 g/dL (13.5-17.5)
--- NOTE | 2019-03-15 05:38 | NUR ---
RN NOTES RECEIVED CALL FROM LAB. H/H= 6.3. DR JEMMA SCHMID NOTIFIED. AWAITING FOR ORDERS. NO OVERT SIGNS OF BLEEDING NOTED. WILL CONT TO MONITOR PT
--- NOTE | 2019-03-15 06:16 | NUR ---
RN NOTES RECEIVED ORDER FROM DR SCHMID: TRANSFUSE 1UNIT PRBC X1 Addendum: 03/15/19 at 0628 by WILLIE STERN RN ADD: INFORMED PT'S RE: LAB RESULT AND MD ORDERED TO TRANSFUSE 1UNIT, PT AGREED. CALLED BLOOD BANK, PER LAB, WILL GIVE RN A CALL ONCE BLOOD IS READY
--- NOTE | 2019-03-15 07:19 | NUR ---
RN NOTES PT IN STABLE CONDITION. NO ACUTE CHANGES THROUGHOUT SHIFT. NO OVERT SIGNS OF BLEEDING NOTED. ALL NEEDS ANTICIPATED. SAFETY MEASURES OBSERVED AT ALL TIMES. PT IS FOR BT 1UNIT ONCE BLOOD IS AVAILABLE. AWAITING CALL FROM BLOOD BANK. ENDORSED TO AM SHIFT RN FOR BRADY
--- NOTE | 2019-03-15 07:25 | NUR ---
GRAPHIC ENGINEER OPENING NOTES RECEIVED PT FROM NIGHTSMSFT RN IN STABLE CONDITION. PT A/O X4. NO SOB OR ACUTE SIGNS OF DISTRESS NOTED. PT ON RA AND SATING WELL. HE DENIES PAIN AT THIS TIME. PERIPHERAL IVS NOTED TO BE C/D/I. RIGHT CHEST HD CATH NOTED TO BE C/D/I. NO SYNCOPAL EPISODES REPORTED TO [facility]. PT HAD 1 SMALL BM OF BLACK TARRY STOOL WITNESSED BY NIGHTSMSFT RN. ORDERS NOTED TO TRANSFUSE 1UNIT OF PRBC. AWAITING CALL FROM LAB ONCE BLOOD IS READY. BED IN LOW LOCKED POSITION,. SIDE RAILS UP X2, CALL LIGHT WITHIN REACH. CONTACT ISOLATION MAINTAINED. WILL CONTINUE TO MONITOR
[2019-03-15] MEDS: PANTOPRAZOLE 40 MG VIAL IV SCH ×2 (09:27→16:57)
[2019-03-15] MEDS: MUPIROCIN OINT 2% 22 GM TUBE SCH ×2 (09:27→21:22)
[2019-03-15] MEDS: BENAZEPRIL HCL 20 MG TABLET PO SCH (09:28)
[2019-03-15] MEDS: VIT B CMPLX 3/FA/VIT C/BIOTIN 1 TAB TABLET PO SCH (09:28)
[2019-03-15] MEDS: SUCRALFATE 1 G TABLET PO SCH ×4 (09:28→21:22)
[2019-03-15] MEDS: CALCIUM ACETATE 667 MG TABLET PO SCH ×2 (13:04→17:00)
--- NOTE | 2019-03-15 13:20 | NUR ---
PT S/P 1UNIT PRBC. NO TRANSFUSION REACTION NOTED. REPEAT H/H ORDERED
[2019-03-15] MEDS: SOD FERRIC GLUC 125 MG in IV NS 0.9% 100 ML IV SCH (13:51)
[2019-03-15 14:21] LABS: HEMOGLOBIN 7.8 g/dL (13.5-17.5)
--- NOTE | 2019-03-15 15:17 | NUR ---
MOUNTER FLUTES AND PICCOLOSEMAIL SPECIALIST NOTES PT TRANSFERRED TP TELE ROOM 102 VIA ACLS PROTOCOL. REPORT GIVEN TO ABRIL MANZANO FOR BRADY. PT S/P 1UNIT PRBS. DR. PHILLIP MADE AWARE OF H/H AND UPDATED ON CONDITION. ALL BELONGINGS SENT WITH PT INCLUDING PT'S WALLET WHICH WAS STORED IN ICU SAFE. VSS UPON TRANSFER
--- NOTE | 2019-03-15 15:30 | NUR ---
RN WALE NOTES RECEIVED BEDSIDE REPORT FROM ABRIL MANZANO. PATIENT IS GETTING DIALYSIS AT THIS TIME. ALERT AND ORIENTED. ON TELE MONITOR, SR. SKIN INTACT. PER RN, AMBULATORY WITH ASSIST. HAS RIGHT AC #20, RIGHT FA #20, RIGHT CW HD CATH AND RIGHT LQ PERITONEAL CATH. PATIENT RECEIVED 1 UNIT OF BLOOD TODAY, RECENT HGB WAS 7.8. BED LOCKED AND IN LOWEST POSITION. CALL LIGHT WITHIN REACH. WILL CONTINUE TO MONITOR CLOSELY.
[2019-03-15] MEDS: hydrALAZINE HCL 25 MG TABLET PO PRN (17:06)
--- NOTE | 2019-03-15 17:14 | NUR ---
RN NOTES DIALYSIS NURSE ON BEDSIDE REPORTED THAT THE PATIENT'S BLOOD PRESSURE WAS HIGH, 172/92 WITH HR 107 DURING DIALYSIS. ADMINISTERED HYDRALAZINE PRN.
--- NOTE | 2019-03-15 18:32 | NUR ---
RN CLOSING NOTES PATIENT DOWNGRADED FROM ICU. ALERT AND ORIENTED X4. S/P EGD ON 03/14. PATIENT IN 2L NC. ON TELE MONITOR, SR. NO BM IN THIS UNIT, BUT 1 SMALL BLACK STOOL IN ICU. PATIENT WAS GIVEN 1 UNIT OF RBC TODAY. HGB WENT UP TO 7.8 FROM 6.3. SKIN IS INTACT, INDEPENDENT TO SELF CARE. DIALYSIS DONE TODAY, WITH 500 ML OUT. PATIENT HAS A RIGHT LQ PERITONEAL CATH TO BE USED WHEN DISCHARGED FROM THE HOSPITAL. NO COMPLAINS OF ANY PAIN OR SOB AT THIS TIME. BED LOCKED AND IN LOWEST POSITION. CALL LIGHT WITHIN REACH. WILL ENDORSE TO NOC SHIFT FOR CONT OF CARE
[2019-03-15] MEDS: AMLODIPINE BESYLATE 10 MG TABLET PO SCH (21:22)
[2019-03-15] MEDS: MAG HYDROX/AL HYDROX/SIMETH 30 ML UDC PO PRN (23:51)
[2019-03-16] VITALS: BP 159/92
[2019-03-16] MEDS: MAG HYDROX/AL HYDROX/SIMETH 30 ML UDC PO PRN (06:33)
[2019-03-16 07:07] LABS: BASOPHILS % (AUTO) 0.4 % (0.0-2.0); EOSINOPHILS % (AUTO) 3.3 % (0.0-6.0); HEMATOCRIT 21 % (39-51); HEMOGLOBIN 7.2 g/dL (13.5-17.5); LYMPHOCYTES % (AUTO) 11.2 % (20.0-44.0); MEAN CORPUSCULAR HGB CONC 34 g/dl (31.0-36.0); MEAN CORPUSCULAR VOLUME 90 fL (80-96); MONOCYTES # (AUTO) 0.5 /CMM (0.1-1.30); MONOCYTES % (AUTO) 6.3 % (2.0-12.0); NEUTROPHILS # (AUTO) 6.8 /CMM (1.8-8.9); NEUTROPHILS % (AUTO) 78.8 % (43.0-81.0); PLATELET COUNT (AUTO) 167 /CMM (150-450); RED BLOOD CELL COUNT(AUTO) 2.39 MIL/uL (4.5-6.0); WHITE BLOOD COUNT (AUTO) 8.7 K/uL (4.3-11.0)
[2019-03-16 07:23] LABS: ALBUMIN 2.7 g/dL (3.4-5.0); BILIRUBIN,TOTAL 0.3 mg/dL (0.2-1.0); CALCIUM, SERUM 8.5 mg/dL (8.5-10.1); MAGNESIUM 2.1 mg/dL (1.8-2.4); PHOSPHORUS 5.2 mg/dL (2.5-4.9); POTASSIUM 5.5 mmol/L (3.5-5.1); TOTAL PROTEIN, SERUM 5.5 g/dL (6.4-8.2)
[2019-03-16 07:25] LABS: CREATININE 11.2 mg/dL (0.6-1.3)
--- NOTE | 2019-03-16 07:30 | NUR ---
INITIAL RN NOTES RECEIVED PATIENT IN BED RESTING COMFORTABLY. EASILY AROUSABLE. NO PAIN OR ACUTE DISTRESS AT THIS TIME. RESPIRATION EVEN AND UNLABORED. SKIN IS DRY WARM TO TOUCH. PATIENT NOTED WITH IV ACCESS ON RIGHT AC AND R FOREARM. IV SITES INTACT AND PATENT. NO S/S OF INFILTRATION AND INFECTION. DIALYSIS SITE ON R CHEST AND RLQ INTACT WELL WITH DRESSING IN PLACE. ALL NEEDS ANTICIPATED. CALL LIGHT WITHIN REACH. PLAN OF CARE DISCUSSED. SAFETY MEASURES OBSERVED. WILL CONTINUE TO MONITOR.
[2019-03-16 08:00] VITALS: BP 165/92
[2019-03-16] MEDS: CALCIUM ACETATE 667 MG TABLET PO SCH ×4 (08:00→18:24)
[2019-03-16] MEDS: VIT B CMPLX 3/FA/VIT C/BIOTIN 1 TAB TABLET PO SCH (08:37)
[2019-03-16] MEDS: SUCRALFATE 1 G TABLET PO SCH ×4 (08:37→21:03)
[2019-03-16] MEDS: PANTOPRAZOLE 40 MG VIAL IV SCH ×2 (08:37→18:25)
[2019-03-16] MEDS: MUPIROCIN OINT 2% 22 GM TUBE SCH ×2 (08:38→21:34)
[2019-03-16] MEDS: ONDANSETRON HCL/PF 4 MG/2 ML VIAL IVP PRN (08:57)
[2019-03-16] MEDS ORDERED: EPOETIN ALFA (10,000 UNIT) 10,000 UNIT/ML VIAL IV SCH (09:00)
--- NOTE | 2019-03-16 09:00 | NUR ---
RN NOTES PATIENT WAS ONLY ABLE TO TOLERATE 1 PHOSLO CAPSULE. PATIENT STARTED TO FEEL NAUSEATED AND WAS NOT ABLE TO TAKE THE SECOND CAPSULE. WILL CONTINUE TO MONITOR.
[2019-03-16] MEDS: BENAZEPRIL HCL 20 MG TABLET PO SCH (10:04)
[2019-03-16 11:00] LABS: IRON, SERUM 78 ug/dl (50-175); TOTAL IRON BINDING CAPACITY 163 ug/dl (250-450)
[2019-03-16] MEDS: hydrALAZINE HCL 50 MG TABLET PO SCH ×4 (11:00→18:25)
[2019-03-16 12:00] VITALS: BP 164/96
--- NOTE | 2019-03-16 13:00 | NUR ---
MS RN NOTES PT REFUSED HYDRALAZINE, PT STATED IT GIVES HIM BLURRED VISION. NOTIFIED DR MACDONALD. PT IS SCHEDULED FOR HD, PER DR MACDONALD: WE WILL CHECK BP AFTER HD.
[2019-03-16 13:02] LABS: FERRITIN 495 ng/mL (8-388)
--- NOTE | 2019-03-16 14:39 | NUR ---
RN NOTES PATIENT SEEN BY DR. CHAVEZ WITH NO NEW ORDERS AT THIS TIME.
--- NOTE | 2019-03-16 14:39 | NUR ---
RN NOTES PATIENT SEEN AND EVALUATED BY DR. PHILLIP WITH NO NEW ORDERS AT THIS TIME.
[2019-03-16] MEDS: SOD FERRIC GLUC 125 MG in IV NS 0.9% 100 ML IV SCH (15:20)
[2019-03-16 16:00] VITALS: BP 145/86
--- NOTE | 2019-03-16 18:40 | NUR ---
RN CLOSING NOTES PATIENT IN BED AWAKE ALERT AND ABLE TO MAKE NEED KNOWN. NO PAIN OR ACUTE DISTRESS AT THIS TIME. RESPIRATION EVEN AND UNLABORED. SKIN IS DRY WARM TO TOUCH. PATIENT FINISHED HD WITH ANY COMPLICATIONS. IV ACCESS ON RIGHT AC AND RIGHT FOREARM INTACT AND PATENT. FLUSHING WELL. ALL NEEDS ANTICIPATED. KEPT CLEAN AND DRY. CALL LIGHT WITHIN REACH. SAFETY MEASURES OBSERVED. WILL CONTINUE PLAN OF CARE. ENDORSED TO PM NURSE FOR BRADY.
--- NOTE | 2019-03-16 19:00 | NUR ---
MS RN NOTES TEXTED DR MACDONALD RE: PT NOT WANTING TO TAKE HYDRALAZINE FOR SIDE EFFECT OF BLURRED VISION. PT WANTS TO ORDER AMLODIPINE INSTEAD. PER DR MACDONALD ORDER 20MG LISINOPRIL. NEED CLARIFICATION FOR ORDER OF AMLODIPINE. WILL ENDORSE TO PM NURSE TO FOLLOW UP.
[2019-03-16] MEDS: LISINOPRIL (20MG) 20 MG TABLET PO SCH (19:31)
--- NOTE | 2019-03-16 19:45 | NUR ---
RN MS OPENING NOTES RECEIVED PT IN BED, AWAKE ALERT ORIENTEDX4, DAUGHTER AT BEDSIDE. BREATHING EVEN AND UNLABORED ON ROOM AIR, NO SOB NOTED. NO COMPLAINT OF PAIN OR DISCOMFORT AT THIS TIME. IV ACCESS O9N THE R AC 20G AND R FA 20G, PATENT AND FLUSHING, RUC HD CATH AND RLQ PERITONEAL CATH. BED IN LOWEST LOCKED POSITION, CALL LIGHT WITHIN REACH AT ALL TIMES, WILL CONTINUE TO MONITOR FREQUENTLY.
[2019-03-16 20:00] VITALS: BP 167/92
[2019-03-16] MEDS: AMLODIPINE BESYLATE 10 MG TABLET PO SCH ×2 (21:04→23:20)
[2019-03-17] VITALS (8 sets, daily range): BP systolic 131–168; BP diastolic 70–89
--- NOTE | 2019-03-17 06:16 | NUR ---
RN MS CLOSING NOTES PT REMAINS IN BED, SLEEPING, EASILY AROUSED TO NAME CALL. BREATHING EVEN AND UNLABORED ON ROOM AIR, NO SOB NOTED. IN NO APPARENT PAIN OR DISCOMFORT AT THE TIME. IV ACCESS ON THE R AC 20G AND R FA 20G, PATENT AND FLUSHING, RUC HD CATH AND RLQ PERITONEAL CATH. BED IN LOWEST LOCKED POSITION, CALL LIGHT WITHIN REACH AT ALL TIMES, WILL ENDORSE TO DAY NURSE FOR BRADY
[2019-03-17 06:23] LABS: BASOPHILS % (AUTO) 0.5 % (0.0-2.0); EOSINOPHILS % (AUTO) 4.4 % (0.0-6.0); LYMPHOCYTES # (AUTO) 1.1 /CMM (0.8-4.8); LYMPHOCYTES % (AUTO) 13.8 % (20.0-44.0); MEAN CORPUSCULAR HGB CONC 34 g/dl (31.0-36.0); MEAN CORPUSCULAR VOLUME 90 fL (80-96); MONOCYTES # (AUTO) 0.7 /CMM (0.1-1.30); NEUTROPHILS # (AUTO) 5.9 /CMM (1.8-8.9); NEUTROPHILS % (AUTO) 72.3 % (43.0-81.0); PLATELET COUNT (AUTO) 166 /CMM (150-450); RED BLOOD CELL COUNT(AUTO) 2.23 MIL/uL (4.5-6.0); WHITE BLOOD COUNT (AUTO) 8.2 K/uL (4.3-11.0)
[2019-03-17 06:26] LABS: HEMOGLOBIN 6.9 g/dL (13.5-17.5)
[2019-03-17 06:27] LABS: HEMATOCRIT 20 % (39-51)
[2019-03-17 06:40] LABS: ALBUMIN 2.8 g/dL (3.4-5.0); BILIRUBIN,TOTAL 0.2 mg/dL (0.2-1.0); CALCIUM, SERUM 8.3 mg/dL (8.5-10.1); MAGNESIUM 2.1 mg/dL (1.8-2.4); PHOSPHORUS 4.3 mg/dL (2.5-4.9); POTASSIUM 5.5 mmol/L (3.5-5.1); TOTAL PROTEIN, SERUM 5.5 g/dL (6.4-8.2)
[2019-03-17 06:53] LABS: CREATININE 9.8 mg/dL (0.6-1.3)
[2019-03-17 07:00] LABS: EOSINOPHILS % (MANUAL) 4 % (0-4); LYMPHOCYTES % (MANUAL) 11 % (16-48); MONOCYTES % (MANUAL) 5 % (0-11.0); NEUTROPHILS % (MANUAL) 80 (42-76)
--- NOTE | 2019-03-17 07:23 | NUR ---
RN OPENING NOTES PT WAS RECIEVED IN BED AT LOWEST AND LOCKED POSITION WITH SIDE RAILS UP X2, A/O X4 BREATHNG EVEN AND UNLABORED ON RA, NO S/S OF ANY DISTRESS OR PAIN AT THIS TIME, DR. AGUILA AWARE OF PT HGB LEVEL OF 6.9, IV IS PATENT AND INTACT, RIGHT UPPER CHEST CATH INTACT AND RLQ PERITONEAL CATH IN PLACE, SAFETY PRECAUTIONS IN PLACE, CALL LIGHT WITHIN REACH, WILL MONITOR ACCORDINGLY
[2019-03-17] MEDS: hydrALAZINE HCL 50 MG TABLET PO SCH (08:18)
[2019-03-17] MEDS: BENAZEPRIL HCL 20 MG TABLET PO SCH (08:19)
[2019-03-17] MEDS: SUCRALFATE 1 G TABLET PO SCH ×4 (08:19→21:29)
[2019-03-17] MEDS: VIT B CMPLX 3/FA/VIT C/BIOTIN 1 TAB TABLET PO SCH (08:19)
[2019-03-17] MEDS: CALCIUM ACETATE 667 MG TABLET PO SCH ×3 (08:19→17:00)
[2019-03-17] MEDS: LISINOPRIL (20MG) 20 MG TABLET PO SCH (08:20)
[2019-03-17] MEDS: MUPIROCIN OINT 2% 22 GM TUBE SCH ×2 (08:20→21:29)
[2019-03-17] MEDS: PANTOPRAZOLE 40 MG VIAL IV SCH ×2 (08:20→16:23)
[2019-03-17] MEDS: METOPROLOL TARTRATE 25 MG TABLET PO SCH ×2 (09:37→21:28)
--- NOTE | 2019-03-17 12:00 | NUR ---
RN NOTE RECEIVED WORD FROM NOT TO TRANSFUSE PT AT THIS AFTER SHE CONSULTED WITH DUE TO PT BEING ON TRANSPLANT LIST AND NOT WANTING TO INFUSE IF NOT ABSOLUTELY NECESSARY. WILL MONITOR PT ACCORDINGLY
[2019-03-17] MEDS: MAG HYDROX/AL HYDROX/SIMETH 30 ML UDC PO PRN (14:29)
[2019-03-17] MEDS: SOD FERRIC GLUC 125 MG in IV NS 0.9% 100 ML IV SCH (14:41)
--- NOTE | 2019-03-17 18:09 | NUR ---
RN CLOSING NOTES PT IN BED AT LOWEST AND LOCKED POSITION WITH SIDE RAILS UP X2, A/O X4 BREATHNG EVEN AND UNLABORED, NO CURRENT S/S OF ANY DISTRESS OR PAIN, IV IS PATENT AND INTACT, NOTED TO HAVE A FEW BM THAT WERE FORMED BUT BLACK, ALL NEEDS ATTENDED TO, SAFETY PRECAUTIONS IN PLACE, CALL LIGHT WITHIN REACH, WILL ENDORSE TO ONCOMING BUSINESS LIAISON MANAGER RN FOR BRADY.
--- NOTE | 2019-03-17 19:10 | NUR ---
RN NOTES RECEIVED PT IN BED AWAKE AND ABLE TO MAKE NEEDS KNOWN. PT A/O X 4. BREATHING EVEN AND UNLABORED WITH NO S/S OF ACUTE DISTRESS OR SOB NOTED. PT ON ROOM AIR AND TOLERATING WELL. NO COMPLAINTS OF PAIN AT THIS TIME. IV ACCESS ON THE R AC #20G AND R FA #20G, PATENT AND INTACT. PT WITH RUC HD CATH AND RLQ PERITONEAL CATH. SAFETY MEASURES IN PLACE WITH BED IN LOWEST LOCKED POSITION AND SIDE RAILS UP X2. CALL LIGHT WITHIN REACH. WILL CONTINUE TO MONITOR.
[2019-03-17] MEDS: AMLODIPINE BESYLATE 10 MG TABLET PO SCH (21:29)
--- NOTE | 2019-03-17 22:45 | NUR ---
RN NOTES SNACKS GIVEN TO PT PT STATED WAS HUNGRY. JELLO AND TUNA SANDWICH WAS GIVEN. PT TOLERATED WELL.
[2019-03-18] MEDS: MAG HYDROX/AL HYDROX/SIMETH 30 ML UDC PO PRN ×2 (03:54→11:22)
--- NOTE | 2019-03-18 03:56 | NUR ---
RN NOTES MAALOX GIVEN TO PT FOR DYSPEPSIA.
--- NOTE | 2019-03-18 06:58 | NUR ---
RN NOTES PT IN BED SLEEPING BUT EASILY AWOKEN VERBALLY OR BY TOUCH. PT A/O X 4 AND ABLE TO MAKE NEEDS KNOWN. BREATHING EVEN AND UNLABORED WITH NO S/S OF ACUTE DISTRESS OR SOB NOTED THROUGHOUT SHIFT. PT ON ROOM AIR AND TOLERATING WELL. NO COMPLAINTS OF PAIN AT THIS TIME. IV ACCESS ON THE R AC #20G AND R FA #20G, PATENT AND INTACT. PT WITH RUC HD CATH AND RLQ PERITONEAL CATH. PT KEPT CLEAN, DRY, AND COMFORTABLE. SAFETY MEASURES IN PLACE WITH BED IN LOWEST LOCKED POSITION AND SIDE RAILS UP X2. CALL LIGHT WITHIN REACH. WILL ENDORSE TO ONCOMING NURSE FOR BRADY.
[2019-03-18 07:01] LABS: BASOPHILS # (AUTO) 0.1 /CMM (0.0-0.2); BASOPHILS % (AUTO) 0.4 % (0.0-2.0); EOSINOPHILS % (AUTO) 3.4 % (0.0-6.0); HEMATOCRIT 21 % (39-51); HEMOGLOBIN 7.1 g/dL (13.5-17.5); LYMPHOCYTES # (AUTO) 1.5 /CMM (0.8-4.8); LYMPHOCYTES % (AUTO) 12.6 % (20.0-44.0); MEAN CORPUSCULAR HGB CONC 33 g/dl (31.0-36.0); MEAN CORPUSCULAR VOLUME 91 fL (80-96); MONOCYTES # (AUTO) 1.2 /CMM (0.1-1.30); MONOCYTES % (AUTO) 9.9 % (2.0-12.0); NEUTROPHILS # (AUTO) 8.7 /CMM (1.8-8.9); NEUTROPHILS % (AUTO) 73.7 % (43.0-81.0); PLATELET COUNT (AUTO) 216 /CMM (150-450); RED BLOOD CELL COUNT(AUTO) 2.35 MIL/uL (4.5-6.0); WHITE BLOOD COUNT (AUTO) 11.8 K/uL (4.3-11.0)
[2019-03-18 07:21] LABS: CALCIUM, SERUM 8.4 mg/dL (8.5-10.1); MAGNESIUM 2.3 mg/dL (1.8-2.4); PHOSPHORUS 3.9 mg/dL (2.5-4.9); POTASSIUM 5.9 mmol/L (3.5-5.1)
--- NOTE | 2019-03-18 07:25 | NUR ---
RN NOTE: SATURATING 96% IN ROOM AIR
--- NOTE | 2019-03-18 07:25 | NUR ---
RN NOTE: RECEIVED PATIENT IN BED, AWAKE, ALERT AND VERBALLY RESPONSIVE. RESPIRATION EVEN AND UNLABORED SATURATING 9 IN ROOM AIR. DENIED ANY PAIN. (R) CHEST WALL HD CATH AND (R) LQ PERITONEAL CATHETER WAS NOTED IN PLACED. PATIENT WILL BE HAVING HEMODIALYSIS TODAY. HOB ELEVATED. (R) AC AND (R) FA IV SITE INTACT AND PATENT. BED ON LOWEST POSITION AND LOCKED AT ALL TIMES. CALL LIGHT WITHIN REACH. NEEDS ANTICIPATED. 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
[2019-03-18 07:28] LABS: CREATININE 12.8 mg/dL (0.6-1.3)
[2019-03-18 08:00] VITALS: BP 148/85
[2019-03-18] MEDS: PANTOPRAZOLE 40 MG VIAL IV SCH ×2 (08:47→16:12)
[2019-03-18] MEDS: CALCIUM ACETATE 667 MG TABLET PO SCH ×2 (08:47→12:08)
[2019-03-18] MEDS: VIT B CMPLX 3/FA/VIT C/BIOTIN 1 TAB TABLET PO SCH (08:47)
[2019-03-18] MEDS: SUCRALFATE 1 G TABLET PO SCH ×3 (08:47→16:12)
[2019-03-18] MEDS: BENAZEPRIL HCL 20 MG TABLET PO SCH (09:00)
[2019-03-18] MEDS: LISINOPRIL (20MG) 20 MG TABLET PO SCH (09:00)
[2019-03-18] MEDS: METOPROLOL TARTRATE 25 MG TABLET PO SCH (09:00)
--- NOTE | 2019-03-18 09:00 | NUR ---
RN NOTE: ALL BP MEDICATIONS (BENAZEPRIL, LISINOPRIL AND LOPRESSOR) WERE HELD DUE TO HEMODIALYSIS AT THE MOMENT.
[2019-03-18] MEDS: MUPIROCIN OINT 2% 22 GM TUBE SCH (09:33)
[2019-03-18] MEDS: hydrALAZINE HCL 25 MG TABLET PO PRN (12:35)
--- NOTE | 2019-03-18 12:48 | NUR ---
RN NOTE: INFORMED DR. MACDONALD REGARDING THE PATIENT'S BP OF 177/91, HR= 86 AND PATIENT HAD HEMODIALYSIS THIS AM. PATIENT HAD A PRN HYDRALAZINE, BUT HE REFUSED TO TAKE IT. MEDICATION WAS WASTED WITH ANOTHER NURSE, Raoul LARA RN. ACCORDING TO THE PATIENT HE SPOKE WITH DR. MACDONALD THIS MORNING AND THAT MD WILL PRESCRIBE LISINOPRIL OR BENAZEPRIL. EXPLAINED TO THE PATIENT THAT THOSE AM BP MEDS WERE SCHEDULED THIS MORNING. PER MD, CALL AND INFORM THE WIRE STITCHER MACHINE.
--- NOTE | 2019-03-18 12:52 | NUR ---
RN NOTE: INFORMED DR. AGUILA REGARDING THE PATIENT'S BP POST HEMODIALYSIS. AND MD WAS AWARE THAT DR. MACDONALD, REFRIGERATION OPERATOR WAS MADE AWARE OF THE REFUSAL TO TAKE HYDRALAZINE. PER DR. AGUILA, OK TO GIVE THE DAILY PO BP MEDS NOW. PATIENT MADE AWARE.
[2019-03-18] MEDS ORDERED: SUCR1TAB PO (12:58)
[2019-03-18] MEDS ORDERED: PANT40TA2 PO (12:58)
[2019-03-18] MEDS ORDERED: BENAZEPRIL HCL 20 MG TABLET PO ONE (13:00)
[2019-03-18] MEDS: LISINOPRIL (20MG) 20 MG TABLET PO ONE ×2 (13:07→13:16)
--- NOTE | 2019-03-18 13:55 | NUR ---
RN NOTE: SPOKE WITH CHARLES, PHARMACIST AND REQUESTED THE FERRLECIT.
--- NOTE | 2019-03-18 14:05 | NUR ---
RN NOTE: CALLED AND SPOKE WITH DR. AGUILA REGARDING THE PRESCRIPTION FOR THE PROTONIX AND SULCRAFATE. GAVE DR. AGUILA THE TELEPHONE NUMBER TO [facility] ([id number] [facility]- TEL #: [phone]) SO HE CAN CALL FOR THE E-PRESCRIPTION. PATIENT MADE AWARE.
[2019-03-18] MEDS: SOD FERRIC GLUC 125 MG in IV NS 0.9% 100 ML IV SCH (14:15)
[2019-03-18 16:00] VITALS: BP 153/84
--- NOTE | 2019-03-18 17:24 | NUR ---
BOILER RELINER NOTE: PATIENT WAS DISCHARGED TO HOME WITH A FRIEND AND ALL BELONGINGS WERE RELEASED WITH THE PATIENT. (R) AC AND (R) FA IV SITE WAS REMOVED AND APPLIED PRESSURE ON THE AREA. MINIMAL BLEEDING WAS NOTED. EXIT CARE WAS DONE AND PRESCRIPTION FOR PROTONIX AND SULCRAFATE WAS GIVEN TO THE PATIENT. REMINDED PATIENT TO GET A FOLLOW-UP APPOINTMENT WITH HIS PRIMARY CARE PHYSICIAN. PATIENT UNDERSTOOD ALL DISCHARGE INSTRUCTIONS. GAVE HIM EDUCATION REGARDING THE NEW PRESCRIPTIONS AND PATIENT WAS IN A HURRY TO LEAVE THE HOSPITAL. PER PATIENT, " I WILL TAKE MY CALCIUM ACETATE AT HOME." PATIENT WAS WHEELED VIA WHEELCHAIR TO THE HOSPITAL ER ENTRANCE AND WAS ACCOMPANIED BY HIS FRIEND VIA PRIVATE VAN.
== END 2019-03-18 17:24 | disposition home or self-care (01) | DRG 377 ==
LOC: ER 16:29 → TELE 18:57 → ICU 23:16 → TELE-TD 03-15 14:55 → MEDSG1 03-16 10:40
PROVIDERS: ADMIT Internal Medicine; ATTEND Internal Medicine
PROC: 30233N1 Transfusion of Nonautologous Red Blood Cells into Peripheral Vein, Percutaneous Approach (ICD-10-PCS; 2019-03-13)
PROC: 0D578ZZ Destruction of Stomach, Pylorus, Via Natural or Artificial Opening Endoscopic (ICD-10-PCS; principal; 2019-03-14)
PROC: 3E0G8GC Introduction of Other Therapeutic Substance into Upper GI, Via Natural or Artificial Opening Endoscopic (ICD-10-PCS; 2019-03-14)
PROC: 5A1D70Z Performance of Urinary Filtration, Intermittent, Less than 6 Hours Per Day (ICD-10-PCS; 2019-03-14)
PROC: 5A1D70Z Performance of Urinary Filtration, Intermittent, Less than 6 Hours Per Day (ICD-10-PCS; 2019-03-15)
PROC: 5A1D70Z Performance of Urinary Filtration, Intermittent, Less than 6 Hours Per Day (ICD-10-PCS; 2019-03-16)
PROC: 5A1D70Z Performance of Urinary Filtration, Intermittent, Less than 6 Hours Per Day (ICD-10-PCS; 2019-03-17)
DX: K25.4 Chronic or unspecified gastric ulcer with hemorrhage (principal); N18.6 End stage renal disease; D62 Acute posthemorrhagic anemia; E44.1 Mild protein-calorie malnutrition; I13.2 Hypertensive heart and chronic kidney disease with heart failure and with stage 5 chronic kidney disease, or end stage renal disease; Z99.2 Dependence on renal dialysis; K29.70 Gastritis, unspecified, without bleeding; N28.1 Cyst of kidney, acquired; Z82.49 Family history of ischemic heart disease and other diseases of the circulatory system; Z80.42 Family history of malignant neoplasm of prostate; Z79.82 Long term (current) use of aspirin; I27.20 Pulmonary hypertension, unspecified; M10.9 Gout, unspecified; Z79.899 Other long term (current) drug therapy; M19.90 Unspecified osteoarthritis, unspecified site; K44.9 Diaphragmatic hernia without obstruction or gangrene; K21.9 Gastro-esophageal reflux disease without esophagitis; E87.5 Hyperkalemia; G89.29 Other chronic pain; Q78.9 Osteochondrodysplasia, unspecified; M47.816 Spondylosis without myelopathy or radiculopathy, lumbar region; M77.9 Enthesopathy, unspecified; T39.395A Adverse effect of other nonsteroidal anti-inflammatory drugs [NSAID], initial encounter; Y92.009 Unspecified place in unspecified non-institutional (private) residence as the place of occurrence of the external cause; D63.1 Anemia in chronic kidney disease; I70.0 Atherosclerosis of aorta; D72.829 Elevated white blood cell count, unspecified; I50.9 Heart failure, unspecified; N26.1 Atrophy of kidney (terminal)
CPT/HCPCS: 36415; 70450-TC; 71045-TC; 72131-TC; 80048-TC; 80053-TC; 80061-TC; 80076-TC; 82728-TC; 82962-TC; 83540-TC; 83735-TC; 84100-TC; 85025-TC; 85027-TC; 85730-TC; 86706; 86850-TC; 86921-TC; 87081-TC; 87340; 90935-TC; 93307-TC; 94799-TC; 97116-TC; 97530-TC; A6402; C9113; G0378; J0885; J1265; J2405; J2704; J2916; J7030; J7040; J7050; P9016-BL

== ENCOUNTER 2019-03-22 10:04 | Inpatient (IN) | payer BC, OTHER ==
[~2019-03-22] VITALS: Ht 180.3 cm; Wt 89.5 kg
[2019-03-22] VITALS (20 sets, daily range): BP systolic 127–199; BP diastolic 68–118
[~2019-03-22 10:04] MED LIST changes: -ASPI-1169 PO; -ATOR20TA PO; -ISOS20TA8 PO; -METO25TA6 PO; +PANT40TA2 PO; +SUCR1TAB PO
--- NOTE | 2019-03-22 10:06 | NUR ---
aaox3, bibra 881 from home c/o generalized weakness and fever x 4 days. RR is even and unlabored with nad noted. skin is warm and non diaphoretic. patient desat to 62%, placed on NC at 4L for 3 minutes with SPO2=72% and changed it to NR at 15L with SPO2 improved to 98%. Patient placed on the monitor and hospital gown. Dr Orosco made aware and awaiting md for eval.
[2019-03-22 10:28] LABS: BASOPHILS # (AUTO) 0.1 /CMM (0.0-0.2); BASOPHILS % (AUTO) 0.7 % (0.0-2.0); EOSINOPHILS % (AUTO) 0.6 % (0.0-6.0); HEMATOCRIT 21 % (39-51); LYMPHOCYTES # (AUTO) 1.2 /CMM (0.8-4.8); LYMPHOCYTES % (AUTO) 7.2 % (20.0-44.0); MEAN CORPUSCULAR HGB CONC 33 g/dl (31.0-36.0); MEAN CORPUSCULAR VOLUME 93 fL (80-96); MONOCYTES # (AUTO) 1.7 /CMM (0.1-1.30); MONOCYTES % (AUTO) 9.5 % (2.0-12.0); NEUTROPHILS # (AUTO) 14.3 /CMM (1.8-8.9); PLATELET COUNT (AUTO) 397 /CMM (150-450); RED BLOOD CELL COUNT(AUTO) 2.26 MIL/uL (4.5-6.0); WHITE BLOOD COUNT (AUTO) 17.4 K/uL (4.3-11.0)
[2019-03-22 10:33] LABS: HEMOGLOBIN 6.9 g/dL (13.5-17.5)
[2019-03-22 10:37] LABS: CALCIUM, SERUM 8.5 mg/dL (8.5-10.1); POTASSIUM 5.3 mmol/L (3.5-5.1)
[2019-03-22 10:39] LABS: CREATININE 13.9 mg/dL (0.6-1.3)
[2019-03-22 10:45] LABS: ALBUMIN 2.9 g/dL (3.4-5.0); BILIRUBIN,DIRECT 0.1 mg/dL (0.0-0.2); BILIRUBIN,TOTAL 0.3 mg/dL (0.2-1.0); TOTAL PROTEIN, SERUM 6.5 g/dL (6.4-8.2)
[2019-03-22] MEDS ORDERED: METO25TA6 PO (10:48)
[2019-03-22 10:59] LABS: ABG OXYGEN SATURATION 89.8 % (92.0-98.5); ABG PH 7.507 (7.350-7.450); ABG PO2 59.2 mmHg (75.0-100.0); AaDO2 149.9 mmHg; COHb 1.5 % (0.5-1.5); MetHb 0.8 % (0.0-1.5); O2Hb 87.7 % (94.0-97.0); SITE, ABG Right Radial; VENT MODE, BG Nasal Cannula
[2019-03-22] MEDS ORDERED: VANCOMYCIN 1 GM in IV D5W 250 ML IV ONE (11:00)
[2019-03-22] MEDS ORDERED: PIPERACILLIN /TAZOBACTAM 3.375 G in IV D5W 50 ML IV ONE (11:00)
[2019-03-22 11:12] LABS: LYMPHOCYTES % (MANUAL) 9 % (16-48); MONOCYTES % (MANUAL) 6 % (0-11.0); NEUTROPHILS % (MANUAL) 85 (42-76)
--- NOTE | 2019-03-22 12:09 | NUR ---
ICU 253
--- NOTE | 2019-03-22 12:21 | NUR ---
report given to Nan SAMUELS for kelsea.
[2019-03-22] MEDS ORDERED: ONDANSETRON HCL/PF 4 MG/2 ML VIAL IVP PRN (13:00)
[2019-03-22] MEDS ORDERED: MAG HYDROX/AL HYDROX/SIMETH 30 ML UDC PO PRN (13:00)
[2019-03-22] MEDS ORDERED: ACETAMINOPHEN 325 MG TABLET PO PRN (13:00)
[2019-03-22] MEDS ORDERED: ZOLPIDEM TARTRATE 5 MG TABLET PO PRN (13:00)
[2019-03-22] MEDS ORDERED: Z GUARD REMEDY 2 OZ OINT TP PRN (13:00)
[2019-03-22] MEDS ORDERED: HYDROCODONE/APAP 5/325MG 1 EACH TABLET PO PRN (13:00)
[2019-03-22] MEDS ORDERED: MAGNESIUM HYDROXIDE 30 ML UDC PO PRN (13:00)
--- NOTE | 2019-03-22 13:00 | NUR ---
wheeled patient via gurney accompanied by RN and emt, in no apparent distress noted going to ICU 254.
--- NOTE | 2019-03-22 13:35 | NUR ---
RN INITIAL NOTES RECEIVED PT AWAKE, A/OX4 VIA [facility]. PT AMBULATED TO BED. ON 02 VIA MA AT 2LPM. NO RESPIRATORY DISTRESS NOTED. NO SOB NOTED. DENIES ANY PAIN. IV LINE IN PLACE. FLUSHED WITH NS. RIGHT CHEST WALL PERMACATH AND RIGHT LATERAL ABDOMEN PERITONEAL CATH IN PLACE. SKIN ASSESSMENT DONE. SKIN INTACT. PT FOR BLOOD TRANSFUSION, 1 UNIT. NO SIGNS OF ACTIVE BLEEDING NOTED. DR AGUILA AWARE OF ADMISSION, AWAITING FOR ORDERS. PT ORIENTED TO ROOM AND USE OF CALL LIGHT. WILL MONITOR
[2019-03-22] MEDS ORDERED: FEE PK DOSING 1 MIN EA MC ONE (13:36)
[2019-03-22] MEDS: SUCRALFATE 1 G TABLET PO SCH ×3 (14:55→20:04)
--- NOTE | 2019-03-22 17:15 | NUR ---
RN NOTES HD STARTED. VS WNL. PT A/OX4. NO RESPIRATORY DISTRESS NOTED. NO SOB NOTED. DENIES ANY PAIN. WILL MONITOR Addendum: 03/22/19 at 1753 by SHADY MORALEZ RN 1885 HEP PANEL, NEGATIVE, FROM 03/14/19 RESULT.
[2019-03-22] MEDS: PANTOPRAZOLE 40 MG TABLET.DR PO SCH (17:19)
[2019-03-22] MEDS: CALCIUM ACETATE 667 MG TABLET PO SCH (18:00)
--- NOTE | 2019-03-22 18:37 | NUR ---
RN CLOSING NOTES PT REMAINS A/O. DENIES ANY PAIN. NO SOB NOTED. NO SIGNS OF ACTIVE BLEEDING NOTED. HD ONGOING. VS WNL. ALL NEEDS ATTENDED AND MET. KEPT COMFORTABLE. CALL LIGHT WITHIN REACH. WILL MONITOR
--- NOTE | 2019-03-22 19:05 | NUR ---
SURVEY TECHNICIAN NOTE RECEIVED PT RESTING WITH HOB ELEVATED, CURRENTLY RECEIVING DIALYSIS, ON 2L NC, NO S/SX OF RESPIRATORY OR CARDIAC DISTRESS, ON TELE SR WITH PVC, INCREASED BP NOTED, WILL CONTINUE TO MONITOR, LAC #20G PATENT FLUSHING WELL, SITE IS CLEAN AND DRY, RCW PERMACATH AND R LATERAL ABDOMEN PERITONEAL CATH, BOTH DRESSINGS ARE DRY AND INTACT, SAFETY MAINTAINED AT ALL TIMES, CALL LIGHT WITHIN REACH, BED IN LOW LOCKED POSITION WILL CONTINUE TO MONITOR FOR ANY CHANGES.
[2019-03-22] MEDS: PIPERACILLIN /TAZOBACTAM 2.25 G in IV D5W 50 ML IV SCH (20:03)
[2019-03-22] MEDS: METOPROLOL TARTRATE 25 MG TABLET PO SCH (20:04)
[2019-03-22] MEDS: AMLODIPINE BESYLATE 10 MG TABLET PO SCH (21:02)
--- NOTE | 2019-03-22 22:15 | NUR ---
SAND FILLER NOTE CALL TO ONCALL DR LORENZANA DUE TO ELEVATED BP SUSTAINING SBP 170'S, 180'S, NEW ORDER FOR NITRO 1GM PRN Q6H FOR SBP > 170, ORDER READ BACK AND VERIFIED, WILL CONT TO MONITOR FOR ANY CHANGES.
[2019-03-22] MEDS: NITROGLYCERIN PACKET 1 GM PACKET TOP PRN (22:21)
--- NOTE | 2019-03-22 23:12 | NUR ---
BODY CORPORATE MANAGER NOTE CALL TO ONCALL DR LORENZANA CONCERNING PT ELEVATED BP AND GETTING NEW ORDERS FOR PRN MED, STATES DO NOT CALL IT IS 11PM AND TO WAIT UNTIL MORNING, NO NEW ORDERS GIVEN.
[2019-03-23] VITALS (33 sets, daily range): BP systolic 123–192; BP diastolic 59–104
[2019-03-23] MEDS: PIPERACILLIN /TAZOBACTAM 2.25 G in IV D5W 50 ML IV SCH ×3 (04:40→21:15)
[2019-03-23 05:05] LABS: BASOPHILS # (AUTO) 0.1 /CMM (0.0-0.2); BASOPHILS % (AUTO) 0.7 % (0.0-2.0); HEMATOCRIT 24 % (39-51); LYMPHOCYTES # (AUTO) 1.6 /CMM (0.8-4.8); LYMPHOCYTES % (AUTO) 9.5 % (20.0-44.0); MEAN CORPUSCULAR HGB CONC 33 g/dl (31.0-36.0); MEAN CORPUSCULAR VOLUME 91 fL (80-96); MONOCYTES # (AUTO) 1.5 /CMM (0.1-1.30); MONOCYTES % (AUTO) 8.9 % (2.0-12.0); NEUTROPHILS # (AUTO) 12.9 /CMM (1.8-8.9); NEUTROPHILS % (AUTO) 77.9 % (43.0-81.0); PLATELET COUNT (AUTO) 388 /CMM (150-450); RED BLOOD CELL COUNT(AUTO) 2.63 MIL/uL (4.5-6.0); WHITE BLOOD COUNT (AUTO) 16.5 K/uL (4.3-11.0)
[2019-03-23 05:19] LABS: CALCIUM, SERUM 8.5 mg/dL (8.5-10.1); MAGNESIUM 2.3 mg/dL (1.8-2.4); PHOSPHORUS 4.8 mg/dL (2.5-4.9); POTASSIUM 4.8 mmol/L (3.5-5.1)
[2019-03-23 05:27] LABS: CREATININE 11.2 mg/dL (0.6-1.3)
--- NOTE | 2019-03-23 07:00 | NUR ---
TRAILER BODY ASSEMBLER CLOSING NOTE PT IS AOX3, RESTING WITH HOB ELEVATED, NO S/SX OF CARDIAC OR RESPIRATORY DISTRESS, BP CONTINUES TO BE ELEVATED, NO PAIN REPORTED, SAFETY MAINTAINED, REPORT GIVEN TO AM RN.
--- NOTE | 2019-03-23 08:31 | NUR ---
received pt from shift supervisor, a/o x4, fatigued, SR, on 2L 02 sat well, lungs partially congested, no edema, HD pt, tolerates diet, v/s stable, no pain, pt turns and repositions by himself.
[2019-03-23] MEDS: SUCRALFATE 1 G TABLET PO SCH ×4 (08:36→21:16)
[2019-03-23] MEDS: CALCIUM ACETATE 667 MG TABLET PO SCH ×3 (08:36→17:04)
[2019-03-23] MEDS: PANTOPRAZOLE 40 MG TABLET.DR PO SCH ×2 (08:36→16:22)
[2019-03-23] MEDS: VIT B CMPLX 3/FA/VIT C/BIOTIN 1 TAB TABLET PO SCH (08:36)
[2019-03-23] MEDS: METOPROLOL TARTRATE 25 MG TABLET PO SCH ×2 (08:36→16:24)
[2019-03-23] MEDS: BENAZEPRIL HCL 20 MG TABLET PO SCH (08:37)
[2019-03-23 10:01] LABS: ABG BASE EXCESS 5.7 mmol/L; ABG PCO2 45.8 mmHg (35.0-45.0); ABG PH 7.441 (7.350-7.450); ABG PO2 57.8 mmHg (75.0-100.0); AaDO2 145.8 mmHg; COHb 0.6 % (0.5-1.5); MetHb 0.7 % (0.0-1.5); O2Hb 88.8 % (94.0-97.0); SITE, ABG Right Radial; VENT MODE, BG NASAL CANNULA
--- NOTE | 2019-03-23 13:19 | NUR ---
pt is resting in the bed, v/s stable, c/o NULL, Tylenol 1tab given.
[2019-03-23] MEDS ORDERED: VANCOMYCIN 1 GM in IV D5W 250 ML IV ONE (16:00)
[2019-03-23] MEDS ORDERED: VANCOMYCIN 500 MG in IV D5W 100 ML IV PRN (16:00)
--- NOTE | 2019-03-23 16:19 | NUR ---
pt is resting in the bed, a/o x4, SR, on 6L 02 sat well, v/s stable, no pain, pt cleaned and changed.
--- NOTE | 2019-03-23 17:47 | NUR ---
pt transferred to med/surg, nikki.
--- NOTE | 2019-03-23 18:10 | NUR ---
MS RN NOTES RECEIVED PT FROM ICU VIA BED AT 1745. PT RESTING IN BED, AWAKE, A/O X4. ON SUPPLEMENTARY OXYGEN AT 6LPM VIA NC, WITHOUT ACUTE RESPIRATORY DISTRESS NOTED. PT DENIES CHEST PAIN, N/V AND/OR ANY DISCOMFORT AT THIS TIME. PT CONCERNED OF HIS WALLET. PER PT HE TOLD ICU NURSE FOR IT TO BE READY, HE NEEDS TO GET HIS CHECK AND SOMEONE WILL PICK IT UP AT 7. NURSING BALANCER MADE AWARE, CURRENTLY ON LUNCH AT THIS MOMENT. PT MADE AWARE AND DISAPPOINTED. CN MADE AWARE WELL. PT KEPT COMFORTABLE IN BED. ON RENAL DIET, DINNER TRAY SERVED BEDSIDE. IV MEDICATIONS RECEIVED FROM ICU, PLACED IN THE MED ROOM UNDER THE PREFERRED CASSETTE. PT HAS RIGHT CHEST MARSHA CATH AND RIGHT ABDOMEN PERITONEAL CATH FOR DIALYSIS THAT PER PT HAS NOT BEEN USED AND WAS PLACED LAST February. PT SKIN IS INTACT. ALL BELONGINGS AT BEDSIDE. PT'S BED KEPT IN LOWEST, LOCKED POSITION WITH SR X2. CALL LIGHT AND FLUID KEPT WITHIN REACH. WILL CONTINUE PLAN OF CARE AND WILL ENDORSE TO NEXT SHIFT NURSE FOR BRADY.
--- NOTE | 2019-03-23 18:37 | NUR ---
MS RN NOTES PT'S WALLET IN THE SAFE FROM ICU BROUGHT IN BY [facility] TO THE UNIT. THE WALLET IS WITH THE PT NOW AND PREFERS TO HAVE IT IN FEW HOURS AND WILL GIVE IT BACK TO NURSE AGAIN LATER. WILL ENDORSE TO NEXT SHIFT NURSE WELL.
--- NOTE | 2019-03-23 19:21 | NUR ---
MS RN CLOSING NOTES PT REMAINS IN BED. A/O X4. AMBULATORY. ON SUPPLEMENTAL OXYGEN AT 6LPM, WITH NO ACUTE RESPIRATORY DISTRESS NOTED. PT DENIES PAIN OR ANY DISCOMFORT AT THIS MOMENT. RIGHT CHEST MARSHA CATH AND RIGHT ABDOMEN PERITONEAL CATH NOTED, DRESSING DRY AND INTACT. ALL NEEDS AND CARE ATTENDED. PT ABLE TO MAKE NEEDS KNOWN. PIV TO LAC G20, FLUSHED WITH NS, INTACT AND PATENT. PT'S BED KEPT IN LOWEST, LOCKED POSITION WITH SR X2. CALL LIGHT NAD FLUID WITHIN REACH. WALLET AND CHECK BOOK STILL WITH THE PT. ENDORSED TO MANUFACTURING ASSOCIATE NURSE FOR BRADY.
[2019-03-23] MEDS: AMLODIPINE BESYLATE 10 MG TABLET PO SCH (21:16)
[2019-03-24] MEDS: PIPERACILLIN /TAZOBACTAM 2.25 G in IV D5W 50 ML IV SCH ×3 (04:49→20:53)
[2019-03-24] MEDS ORDERED: VANCOMYCIN 500 MG in IV D5W 100 ML IV PRN (05:00)
[2019-03-24 06:26] LABS: BASOPHILS # (AUTO) 0.1 /CMM (0.0-0.2); BASOPHILS % (AUTO) 0.6 % (0.0-2.0); EOSINOPHILS % (AUTO) 5.1 % (0.0-6.0); HEMATOCRIT 25 % (39-51); HEMOGLOBIN 8.3 g/dL (13.5-17.5); LYMPHOCYTES # (AUTO) 1.1 /CMM (0.8-4.8); LYMPHOCYTES % (AUTO) 7.9 % (20.0-44.0); MEAN CORPUSCULAR HGB CONC 33 g/dl (31.0-36.0); MEAN CORPUSCULAR VOLUME 91 fL (80-96); MONOCYTES # (AUTO) 1.1 /CMM (0.1-1.30); MONOCYTES % (AUTO) 8.1 % (2.0-12.0); NEUTROPHILS % (AUTO) 78.3 % (43.0-81.0); PLATELET COUNT (AUTO) 447 /CMM (150-450); RED BLOOD CELL COUNT(AUTO) 2.75 MIL/uL (4.5-6.0)
--- NOTE | 2019-03-24 06:50 | NUR ---
MS RN NOTES AWAKE & RESPONSIVE. NOT IN ANY DISTRESS. NO SOB NOTED. DENIES ANY PAIN OR DISCOMFORT AT THIS TIME. WITH IVF INFUSING WELL. MONITORED ACCORDINGLY. CALL LIGHT WITHIN REACH. BED IN LOWEST POSITION. SR UP X 2 FOR SAFETY. WILL ENDORSE TO NEXT SHIFT.
[2019-03-24 06:56] LABS: ALBUMIN 2.6 g/dL (3.4-5.0); BILIRUBIN,TOTAL 0.4 mg/dL (0.2-1.0); CALCIUM, SERUM 8.5 mg/dL (8.5-10.1); MAGNESIUM 2.5 mg/dL (1.8-2.4); PHOSPHORUS 4.7 mg/dL (2.5-4.9); POTASSIUM 4.5 mmol/L (3.5-5.1); TOTAL PROTEIN, SERUM 6.4 g/dL (6.4-8.2)
[2019-03-24 06:58] LABS: CREATININE 14.2 mg/dL (0.6-1.3)
--- NOTE | 2019-03-24 07:31 | NUR ---
RN MS OPENING NOTES Received patient on room air, patient denies pain. Patient is a/o x4. Patient's bed is at the lowest setting, call light within reach. Patient is comfortable.
[2019-03-24 07:43] VITALS: BP 157/76
[2019-03-24] MEDS: CALCIUM ACETATE 667 MG TABLET PO SCH ×4 (08:00→18:27)
[2019-03-24] MEDS: VIT B CMPLX 3/FA/VIT C/BIOTIN 1 TAB TABLET PO SCH (08:55)
[2019-03-24] MEDS: BENAZEPRIL HCL 20 MG TABLET PO SCH ×2 (08:55→09:00)
[2019-03-24] MEDS: CLONIDINE HCL 0.1MG/24H PTWK 1 EA PATCH TD SCH ×2 (08:55→12:06)
[2019-03-24] MEDS: PANTOPRAZOLE 40 MG TABLET.DR PO SCH ×3 (08:55→16:30)
[2019-03-24] MEDS: METOPROLOL TARTRATE 25 MG TABLET PO SCH ×3 (08:55→16:30)
[2019-03-24] MEDS: SUCRALFATE 1 G TABLET PO SCH ×4 (08:55→20:53)
--- NOTE | 2019-03-24 09:11 | NUR ---
RN MS NOTES Pulled medications, unwrapped them and about to give them to patient when HD came. Did not know the specific time for the HD. Patient then refused medications because of HD about to be done.
[2019-03-24] MEDS ORDERED: EPOETIN ALFA (10,000 UNIT) 10,000 UNIT/ML VIAL IV ONE (15:00)
[2019-03-24 16:00] VITALS: BP 138/97
--- NOTE | 2019-03-24 18:35 | NUR ---
RN MS CLOSING NOTES Patient remains on 5 L o2 nasal cannula, no sob noted. Patient's vital sign stable all shift. Patient's clonidine patch placed on [id number]. Patient had an HD today and 2.5 L was taken out. Patient remains with a Right Chest Wall catheter, Left AC 20 gauge, and a peritoneal catheter.
[2019-03-24 20:00] VITALS: BP 175/98
--- NOTE | 2019-03-24 20:06 | NUR ---
RN OPENING NOTES RECEIVED PATIENT RESTING COMFORTABLY IN BED. NO SIGNS OF RESPIRATORY DISTRESS. PATIENT IS A/O X4. IV SITE PATENT AND INTACT. PATIENT DENIES PAIN AT THIS TIME. SAFETY PRECAUTIONS IMPLEMENTED. CALL LIGHT WITHIN REACH. WILL CONTINUE TO MONITOR PATIENT THROUGHOUT THE SHIFT.
[2019-03-24 20:45] VITALS: BP 153/85
[2019-03-24] MEDS: AMLODIPINE BESYLATE 10 MG TABLET PO SCH (21:12)
[2019-03-24 22:18] VITALS: BP 154/87
--- NOTE | 2019-03-25 02:54 | NUR ---
TRANSFER OF CARE RECEIVE REPORT FROM NIGHT RN CONTINUITY OF CARE PT ASLEEP AND EASILY AWAKEN, NOT IN DISTRESS, RESPIRATIONS EVEN AND UNLABORED. SAFETY MEASURES IN PLACE WILL CONT TO MTR.
--- NOTE | 2019-03-25 03:08 | NUR ---
RN CLOSING NOTES PATIENT IS RESTING IN BED, COMFORTABLY. NO SIGNS OF RESPIRATORY DISTRESS. NO SIGNS OF SHORTNESS OF BREATH. SAFETY PRECAUTIONS IMPLEMENTED. NO SIGNS OF FACIAL GRIMACING OR DISCOMFORT NOTED AT THIS TIME. IV SITE PATENT AND INTACT. CALL LIGHT WITHIN REACH. WILL TRANSFER CARE TO NIGHT RN FOR CONTINUITY OF CARE.
[2019-03-25] MEDS: PIPERACILLIN /TAZOBACTAM 2.25 G in IV D5W 50 ML IV SCH ×3 (04:12→20:37)
--- NOTE | 2019-03-25 06:06 | NUR ---
MS RN ASLEEP AND EASILY AWAKEN,RESPIRATION EVEN AND UNLABORED, NEEDS ATTENDED AND ANTICIPATED, KEPT CLEAN AND DRY AND COMFORTABLE. NURSING CARE RENDERED,NO S/S OF DISTRESS,NO COMPLAIN OF PAIN. SAFETY MEASURES AT ALL TIMES. ENDORSE TO THE NEXT SHIFT.
[2019-03-25 06:15] LABS: BASOPHILS # (AUTO) 0.1 /CMM (0.0-0.2); BASOPHILS % (AUTO) 0.9 % (0.0-2.0); EOSINOPHILS % (AUTO) 5.4 % (0.0-6.0); HEMATOCRIT 24 % (39-51); LYMPHOCYTES # (AUTO) 1.3 /CMM (0.8-4.8); LYMPHOCYTES % (AUTO) 11.6 % (20.0-44.0); MEAN CORPUSCULAR HGB CONC 33 g/dl (31.0-36.0); MEAN CORPUSCULAR VOLUME 92 fL (80-96); MONOCYTES # (AUTO) 1.1 /CMM (0.1-1.30); MONOCYTES % (AUTO) 10.1 % (2.0-12.0); NEUTROPHILS # (AUTO) 7.8 /CMM (1.8-8.9); PLATELET COUNT (AUTO) 439 /CMM (150-450); RED BLOOD CELL COUNT(AUTO) 2.63 MIL/uL (4.5-6.0); WHITE BLOOD COUNT (AUTO) 10.8 K/uL (4.3-11.0)
[2019-03-25 06:32] LABS: CALCIUM, SERUM 8.4 mg/dL (8.5-10.1); POTASSIUM 4.7 mmol/L (3.5-5.1)
[2019-03-25 06:34] LABS: CREATININE 12.8 mg/dL (0.6-1.3)
[2019-03-25 08:00] VITALS: BP 144/85
--- NOTE | 2019-03-25 08:02 | NUR ---
RN MS OPENING NOTES Received patient on 5L o2, nasal cannula. No sob noted. Patient denies pain or any discomfort at this time. Patient a/o x4, lying down comfortably on his bed. bed at the lowest setting, call light within reach.
[2019-03-25] MEDS: CALCIUM ACETATE 667 MG TABLET PO SCH ×3 (09:22→17:05)
[2019-03-25] MEDS: METOPROLOL TARTRATE 25 MG TABLET PO SCH ×2 (09:22→17:05)
[2019-03-25] MEDS: SUCRALFATE 1 G TABLET PO SCH ×4 (09:22→20:33)
[2019-03-25] MEDS: VIT B CMPLX 3/FA/VIT C/BIOTIN 1 TAB TABLET PO SCH (09:22)
[2019-03-25] MEDS: PANTOPRAZOLE 40 MG TABLET.DR PO SCH ×2 (09:23→17:05)
[2019-03-25] MEDS: BENAZEPRIL HCL 20 MG TABLET PO SCH (09:23)
[2019-03-25] MEDS: LACTOBACILLUS RHAMNOSUS GG 1 EACH CAP.SPRINK PO SCH (17:43)
--- NOTE | 2019-03-25 18:01 | NUR ---
RN MS CLOSING NOTES Patient remains on 5L o2 nasal cannula with humidifier. Patient remains a/o x4. Patient denies pain all shift, stated that he is comfortable, all needs are met. No HD today. Patient could not provide me a sputum sample. Patient's bed at the lowest setting, call light within reach.
--- NOTE | 2019-03-25 19:23 | NUR ---
MS RN RECEIVE PT AWAKE IN BED, A/O X3, ON 5LPM 02 WITH HUMIDIFIER SP02 97%. RESPIRATIONS EVEN AND UNLABORED, SAFETY MEASURES IN PLACE. WILL CONTINUE TO MONITOR
[2019-03-25 20:00] VITALS: BP 173/95
[2019-03-25] MEDS: NITROGLYCERIN PACKET 1 GM PACKET TOP PRN (20:33)
[2019-03-25 21:00] VITALS: BP 173/95
[2019-03-25] MEDS: AMLODIPINE BESYLATE 10 MG TABLET PO SCH (21:14)
[2019-03-25 23:00] VITALS: BP 153/78
[2019-03-26] MEDS: PIPERACILLIN /TAZOBACTAM 2.25 G in IV D5W 50 ML IV SCH ×3 (04:36→21:57)
--- NOTE | 2019-03-26 06:16 | NUR ---
MS RN ASLEEP AND EASILY AWAKEN, ON 5LPM VIA NC 02 SAT 95%. RESPIRATION EVEN AND UNLABORED, NO COMPLAIN OF PAIN. NO S/S OF DISTRESS, KEPT CLEAN AND DRY AND COMFORTABLE. NURSING CARE RENDERED, NEEDS ATTENDED AND ANTICIPATED, OFFLOAD HEELS AND ELBOWS. SAFETY MEASURES AT ALL TIMES. ENDORSE TO THE NEXT SHIFT.
--- NOTE | 2019-03-26 07:22 | NUR ---
RN MS OPENING NOTES Patient remains on 5L o2 nasal cannula, no sob noted. Patient remains a/o x4, comfortably lying on bed. Patient denies pain at this time. Bed at the lowest setting, call light within reach.
[2019-03-26 07:43] LABS: CALCIUM, SERUM 8.3 mg/dL (8.5-10.1); POTASSIUM 4.5 mmol/L (3.5-5.1)
[2019-03-26 07:52] LABS: CREATININE 15.7 mg/dL (0.6-1.3)
[2019-03-26 08:00] VITALS: BP 163/100
[2019-03-26] MEDS: PANTOPRAZOLE 40 MG TABLET.DR PO SCH ×2 (08:56→16:41)
[2019-03-26] MEDS: LACTOBACILLUS RHAMNOSUS GG 1 EACH CAP.SPRINK PO SCH ×2 (08:56→16:41)
[2019-03-26] MEDS: SUCRALFATE 1 G TABLET PO SCH ×4 (08:56→21:58)
[2019-03-26] MEDS: CALCIUM ACETATE 667 MG TABLET PO SCH ×3 (08:56→17:56)
[2019-03-26] MEDS: BENAZEPRIL HCL 20 MG TABLET PO SCH (09:00)
[2019-03-26] MEDS: METOPROLOL TARTRATE 25 MG TABLET PO SCH ×2 (09:00→16:41)
[2019-03-26] MEDS: VIT B CMPLX 3/FA/VIT C/BIOTIN 1 TAB TABLET PO SCH (09:00)
--- NOTE | 2019-03-26 09:05 | NUR ---
RN MS NOTES BP medications and nephrovite not given due to HD today. Patient aware and agrees.
[2019-03-26 16:00] VITALS: BP 150/93
--- NOTE | 2019-03-26 18:03 | NUR ---
RN MS CLOSING NOTES Patient remains on 5L o2 nasal cannula, patient puts it on and off, but it mostly stays on him. Patient remains a/o x4, ambulatory with good gait. Patient able to use the restroom on his own without any assistance. Right chest wall catheter for HD. Left AC #20 remains free flowing and unobstructed. Vanco given after HD, 2.5L was taken out of patients HD. Bed side at the lowest setting, call light within reach. All needs and medications given. Will give report to NOC RN for BRADY.
--- NOTE | 2019-03-26 19:15 | NUR ---
RN OPEN NOTES RECEIVED PATIENT AWAKE IN BED WITH FAMILY AT BEDSIDE. A/O X4. NO SIGNS OF DISTRESS OR DISCOMFORT. BREATHING EVEN AND UNLABORED. IV ACCESS LAC, PATENT AND INTACT, NO SIGNS OF REDNESS OR INFILTRATION. HAS RCW HD CATH INTACT. PATIENT S/P HD TODAY WITH 2.5L OUTPUT. BED IN LOW LOCKED POSITION WITH SIDE RAILS X2. CALL LIGHT WITHIN REACH. WILL CONTINUE TO MONITOR.
[2019-03-26 20:00] VITALS: BP 169/90
[2019-03-26] MEDS: AMLODIPINE BESYLATE 10 MG TABLET PO SCH (21:58)
[2019-03-27] MEDS: PIPERACILLIN /TAZOBACTAM 2.25 G in IV D5W 50 ML IV SCH ×2 (05:17→13:00)
[2019-03-27 06:45] LABS: CALCIUM, SERUM 8.7 mg/dL (8.5-10.1); POTASSIUM 4.7 mmol/L (3.5-5.1)
--- NOTE | 2019-03-27 06:50 | NUR ---
RN NOTES PATIENT RECEIVED CRITICAL LAB VALUE, CREATINE 12.0. L/M FOR . WILL ENDORSE TO AM SHIFT.
--- NOTE | 2019-03-27 06:53 | NUR ---
RN CLOSING NOTES PATIENT AWAKE IN SITTING ON SIDE OF BED EATING. A/O X4. NO SIGNS OF DISTRESS OR DISCOMFORT. BREATHING EVEN AND UNLABORED. IV ACCESS LAC, PATENT AND INTACT, NO SIGNS OF REDNESS OR INFILTRATION. HAS RCW HD CATH INTACT. ALL NEEDS MET. NO SIGNIFICANT CHANGES THROUGH THE NIGHT. BED IN LOW LOCKED POSITION WITH SIDE RAILS X2. CALL LIGHT WITHIN REACH. WILL ENDORSE TO AM SHIFT FOR BRADY.
--- NOTE | 2019-03-27 07:36 | NUR ---
MS RN OPENING NOTES RECEIVED PATIENT AWAKE IN BED IN NO ACUTE SIGNS OF DISTRESS. A/O X4. ABLE TO MAKE NEEDS KNOWN, DENIES PAIN OR ANY DISCOMFORTS AT THIS TIME. ON ROOM AIR, BREATHING EVEN AND UNLABORED. IV ACCESS LAC DISLODGED, WILL TRY TO INSERT NEW PIV. RCW HD CATH INTACT. WITH DRESSING C/D/I. PERITONEAL CATH ON RIGHT LOWER ABDOMEN IN PLACE. BED IN LOW LOCKED POSITION WITH SIDE RAILS X2. CALL LIGHT WITHIN REACH. WILL CONTINUE TO MONITOR
[2019-03-27 08:00] VITALS: BP 157/88
[2019-03-27] MEDS: CALCIUM ACETATE 667 MG TABLET PO SCH ×3 (08:15→17:22)
[2019-03-27] MEDS: LACTOBACILLUS RHAMNOSUS GG 1 EACH CAP.SPRINK PO SCH ×2 (08:15→17:22)
[2019-03-27] MEDS: SUCRALFATE 1 G TABLET PO SCH ×3 (08:15→17:22)
[2019-03-27] MEDS: METOPROLOL TARTRATE 25 MG TABLET PO SCH ×2 (08:15→17:22)
[2019-03-27] MEDS: PANTOPRAZOLE 40 MG TABLET.DR PO SCH ×2 (08:15→17:22)
[2019-03-27] MEDS: VIT B CMPLX 3/FA/VIT C/BIOTIN 1 TAB TABLET PO SCH (08:15)
[2019-03-27] MEDS: BENAZEPRIL HCL 20 MG TABLET PO SCH (08:16)
--- NOTE | 2019-03-27 13:43 | NUR ---
RN NOTES TRIED TO INSERT IV ACCESS BUT UN-ABLE TO INSERT ONE. PT TO RECEIVED IV ATB ZOSYN. DR LORENZANA ON UNIT AND MADE AWARE AND SAID" IT'S OK" BECAUSE PT WILL BE DISCHARGE THIS AFTERNOON AND WILL D/C PT ON ORAL ATB. WILL CONTINUE TO MONITOR.
[2019-03-27 16:00] VITALS: BP 157/88
[2019-03-27 17:22] VITALS: BP 157/88
--- NOTE | 2019-03-27 18:06 | NUR ---
rubber calender helper notes Patient discharged home in stable condition. a/o x 4 and verbally responsive, no acute distress noted. All discharge teachings given and pt verbalized understanding. Vital signs stable and recorded. Patient has intact skin. Pt signed all discharge papers. Prescription for oral antibiotic handed to pt. Pt left unit at 1800 ambulatory accompanied by family. MD and Charge Nurse aware of discharge.
== END 2019-03-27 18:10 | disposition home or self-care (01) | DRG 871 ==
LOC: ER 10:06 → ICU 13:21 → MED 03-23 17:27
PROVIDERS: ADMIT Internal Medicine; ATTEND Internal Medicine Nephrology
PROC: 30233N1 Transfusion of Nonautologous Red Blood Cells into Peripheral Vein, Percutaneous Approach (ICD-10-PCS; principal; 2019-03-22)
DX: A41.9 Sepsis, unspecified organism (principal); J15.9 Unspecified bacterial pneumonia; N18.6 End stage renal disease; J96.21 Acute and chronic respiratory failure with hypoxia; I21.A1 Myocardial infarction type 2; I12.0 Hypertensive chronic kidney disease with stage 5 chronic kidney disease or end stage renal disease; J98.11 Atelectasis; I13.2 Hypertensive heart and chronic kidney disease with heart failure and with stage 5 chronic kidney disease, or end stage renal disease; J90 Pleural effusion, not elsewhere classified; Z99.2 Dependence on renal dialysis; E87.5 Hyperkalemia; K21.9 Gastro-esophageal reflux disease without esophagitis; I27.20 Pulmonary hypertension, unspecified; Z79.899 Other long term (current) drug therapy; Z87.11 Personal history of peptic ulcer disease; Z86.14 Personal history of Methicillin resistant Staphylococcus aureus infection; Z83.3 Family history of diabetes mellitus; Z82.49 Family history of ischemic heart disease and other diseases of the circulatory system; Z82.0 Family history of epilepsy and other diseases of the nervous system; Z80.42 Family history of malignant neoplasm of prostate; D64.9 Anemia, unspecified; E21.1 Secondary hyperparathyroidism, not elsewhere classified; I50.9 Heart failure, unspecified; M48.061 Spinal stenosis, lumbar region without neurogenic claudication; M47.816 Spondylosis without myelopathy or radiculopathy, lumbar region; M77.9 Enthesopathy, unspecified; I70.0 Atherosclerosis of aorta
CPT/HCPCS: 36415; 36600; 71045-TC; 71046; 80048-TC; 80053-TC; 80061-TC; 80076-TC; 80202-TC; 83605-TC; 83735-TC; 84100-TC; 84484-TC; 85025-TC; 85730-TC; 86850-TC; 86921-TC; 87040-TC; 87070-TC; 87081-TC; 87400; 90935-TC; 94799-TC; A6402; G0378; J0885; J2543; J3370; J7040; J7050; J7060; P9016-BL

== ENCOUNTER 2019-04-11 06:03 | Inpatient (IN) | payer MEDICARE, OTHER ==
[~2019-04-11] VITALS: Ht 180.3 cm; Wt 90.7 kg
[2019-04-11] VITALS (15 sets, daily range): BP systolic 162–194; BP diastolic 86–116
[~2019-04-11 06:03] MED LIST changes: +METO25TA6 PO
--- NOTE | 2019-04-11 06:10 | NUR ---
BIB AMBULANCE FOR S/P FALL AND SYNCOPE. PMH OF ESRD ON HD Q T, TH, S. HD CATH ON RCW. PT DENIED ANY PAION OR DISCOMFORT AT THIS TIME. PLACED ON A MONITOR, WILL CONT TO MONITOR
--- NOTE | 2019-04-11 06:23 | NUR ---
CALLED RADIOLOGY FRO HEAD CT. CALLED LAB TO ROTARY PLANER SET UP OPERATOR BLOOD SPECIMEN
--- NOTE | 2019-04-11 06:31 | NUR ---
PT LEFT FOR HEAD CT
[2019-04-11 06:36] LABS: BASOPHILS # (AUTO) 0.1 /CMM (0.0-0.2); BASOPHILS % (AUTO) 0.6 % (0.0-2.0); EOSINOPHILS % (AUTO) 4.3 % (0.0-6.0); HEMATOCRIT 30 % (39-51); HEMOGLOBIN 9.6 g/dL (13.5-17.5); LYMPHOCYTES # (AUTO) 1.7 /CMM (0.8-4.8); LYMPHOCYTES % (AUTO) 14.9 % (20.0-44.0); MEAN CORPUSCULAR HGB CONC 32 g/dl (31.0-36.0); MEAN CORPUSCULAR VOLUME 92 fL (80-96); MONOCYTES # (AUTO) 0.9 /CMM (0.1-1.30); MONOCYTES % (AUTO) 8.5 % (2.0-12.0); NEUTROPHILS % (AUTO) 71.7 % (43.0-81.0); PLATELET COUNT (AUTO) 273 /CMM (150-450); RED BLOOD CELL COUNT(AUTO) 3.23 MIL/uL (4.5-6.0); WHITE BLOOD COUNT (AUTO) 11.1 K/uL (4.3-11.0)
--- NOTE | 2019-04-11 06:38 | NUR ---
BACK FROM CT
[2019-04-11 06:43] LABS: CALCIUM, SERUM 9.1 mg/dL (8.5-10.1); CARBON DIOXIDE 30 mmol/L (21-32); CHLORIDE 98 mmol/L (98-107); GLUCOSE 126 mg/dL (74-106); POTASSIUM 4.2 mmol/L (3.5-5.1); SODIUM SERUM 140 mmol/L (136-145); UREA NITROGEN, BLOOD 50 mg/dL (7-18)
[2019-04-11 06:48] LABS: CREATININE 14.4 mg/dL (0.6-1.3)
--- NOTE | 2019-04-11 06:48 | NUR ---
RECEIVED A CALL FROM LAB REPORTING CR:14.4 MADE AWARE WITH NO NEW ORDER AT THIS TIME. WILL CONT TO MONITOR ,
[2019-04-11 06:50] LABS: BILIRUBIN,TOTAL 0.3 mg/dL (0.2-1.0)
[2019-04-11 06:51] LABS: ALANINE AMINOTRANSFERASE 23 U/L (12-78); ALBUMIN 3.2 g/dL (3.4-5.0); ALKALINE PHOSPHATASE 72 U/L (46-116); ASPARTATE AMINOTRANSFERASE 35 U/L (15-37); BILIRUBIN,DIRECT 0.1 mg/dL (0.0-0.2); TOTAL PROTEIN, SERUM 6.8 g/dL (6.4-8.2)
--- NOTE | 2019-04-11 07:06 | NUR ---
DR WILSON HAD BEEN PAGED. AWAITING CALL BACK
[2019-04-11] MEDS ORDERED: LEVETIRACETAM (500MG) 500 MG/5 ML VIAL IV ONE (07:16)
[2019-04-11] MEDS ORDERED: ENALAPRILAT INJ (1.25 MG/ML) 1.25 MG/ML VIAL IV ONE ×2 (07:17→09:45)
--- NOTE | 2019-04-11 07:19 | NUR ---
DR LORENZANA WAS PAGED
[2019-04-11] MEDS ORDERED: ENALAPRILAT DIHYD. (2.5MG/ML) 1.25 MG/ML VIAL IV ONE (07:30)
[2019-04-11] MEDS ORDERED: LEVETIRACETAM (500MG) 500 MG in IV NS 0.9% 100 ML IV ONE (07:30)
--- NOTE | 2019-04-11 08:00 | NUR ---
DR. BRADLEY AT BEDSIDE FOR EVAL.
--- NOTE | 2019-04-11 08:18 | NUR ---
wheeled patient via gurney going to ct scan
--- NOTE | 2019-04-11 09:43 | NUR ---
REPORT GIVEN TO EDUARDO SAMUELS.
--- NOTE | 2019-04-11 09:45 | NUR ---
CALLED DR. BRADLEY TO REMIND HIM OF ADMISSION ORDERS.
[2019-04-11] MEDS ORDERED: ACETAMINOPHEN 325 MG TABLET PO PRN (10:00)
[2019-04-11] MEDS ORDERED: ZOLPIDEM TARTRATE 5 MG TABLET PO PRN (10:00)
[2019-04-11] MEDS ORDERED: ENALAPRILAT INJ (1.25 MG/ML) 1.25 MG/ML VIAL IV PRN (10:00)
[2019-04-11] MEDS ORDERED: Z GUARD REMEDY 2 OZ OINT TP PRN (10:00)
[2019-04-11] MEDS ORDERED: ONDANSETRON HCL/PF 4 MG/2 ML VIAL IVP PRN (10:00)
[2019-04-11] MEDS ORDERED: MAGNESIUM HYDROXIDE 30 ML UDC PO PRN (10:00)
--- NOTE | 2019-04-11 10:22 | NUR ---
PATIENT TRANSFERRED TO ROOM 263 ICU VIA ACLS PROTOCOL. PATIENT IN STABLE CONDITION.
--- NOTE | 2019-04-11 10:41 | NUR ---
RN NOTES PATIENT RECEIVED FROM ER VIA GURNEY, PATIENT AWAKE ALERT AND ABLE TO MOVE FROM GURNEY TO BED WITH ASSISTANCE, NOTED WITH PERIODS OF FORGETFULNESS ORIENTED 1-2 UPON ARRIVAL. RECEIVED ON 2 L VIA NC AND WITH OXYGEN SATURATION >92%. RESPIRATIONS EVEN AND UNLABORED, DENIES ANY PAIN OR DISCOMFORT AT THIS TIME. IV ACCESS TO RIGHT AND LEFT AC 20G PATENT AND INTACT NO REDNESS OR INFILTRATION NOTED. DR. AGUILA MADE AWARE OF BP TRENDS IN ER AND REQUESTED ADMITTING ORDERS. PER DR. AGUILA PT TO HAVE HEMODIALYSIS TODAY AND CONTINUE TO MONITOR PT TO HAVE BP MEDS AFTER DIALYSIS, CONTACTED HD TEAM AND WILL HAVE TREATMENT TODAY SOON POSSIBLE
--- NOTE | 2019-04-11 11:00 | NUR ---
RN NOTES CONTACTED DR. AGUILA MADE AWARE OF BP TRENDS IN ER AND IN ICU, NOTIFIED OF NO CURRENT ORDER OF PRN BP MEDICATIONS. PER DR. AGUILA PT TO HAVE HEMODIALYSIS TODAY AND CONTINUE TO MONITOR PT TO HAVE BP MEDS AFTER DIALYSIS, CONTACTED HD TEAM AND WILL HAVE TREATMENT TODAY SOON POSSIBLE VERIFIED
--- NOTE | 2019-04-11 11:45 | NUR ---
RN NOTES PATIENT A/0 X3 AWAKE ALERT AND VERBALLY RESPONSIVE ABLE TO MAKE NEEDS KNOWN, REQUESTS MEAL BROUGHT IN FROM FAMILY VERIFIED ORDERS FOR RENAL DIET, WILL AWAIT FURTHER ORDERS REGARDING HD TREATMENT TODAY
[2019-04-11] MEDS ORDERED: METOPROLOL TARTRATE 25 MG TABLET PO STA (12:40)
[2019-04-11] MEDS ORDERED: SUCRALFATE 1 G TABLET PO SCH (13:00)
[2019-04-11] MEDS ORDERED: CALCIUM ACETATE 667 MG TABLET PO SCH (13:00)
[2019-04-11] MEDS ORDERED: SEVELAMER CARBONATE 0.8 GM POWD.PACK PO SCH (13:00)
--- NOTE | 2019-04-11 13:30 | NUR ---
RN NOTES EPIC HOSPITALIST AT BEDSIDE, PER RAISIN SEPARATOR OPERATOR PT WILL BE FOLLOWED BY EPIC, UPDATED ON PT STATUS AND PER RAISIN SEPARATOR OPERATOR PT TO HAVE CT OF HEAD REPEATED
--- NOTE | 2019-04-11 13:40 | NUR ---
RN NOTES 1340 PATIENT NOTED MORE LETHARGIC AND CONFUSED WITH EPISODE OF VOMITING, NOT FOLLOWING SIMPLE COMMANDS, VITAL SIGNS CONTINUED TO BE MONITORED, WILL TAKE TO CT OF HEAD, MANAGER VOICE NOTIFIED OF CODE STROKE PROTOCOL, ASSISTED TAKING PT FOR [address] WHILE SETTING UP FOR CT PT WITH EPISODES OF VOMITING X2. CT OF HEAD DONE UPON ARRIVAL BACK TO UNIT MANAGER VOICE UPDATED ON PT STATUS WITH FURTHER ORDERS CARRIED OUT PT TO BE TRANSFERRED OUT PER MANAGER VOICE AND NEUROLOGY
--- NOTE | 2019-04-11 13:45 | NUR ---
CODE STROKE INITIATED. ORDER SET IMPUTED WHILE PRIMARY RN INFORMS CODE TEAM
[2019-04-11 14:12] LABS: BASOPHILS % (AUTO) 0.3 % (0.0-2.0); EOSINOPHILS % (AUTO) 3.6 % (0.0-6.0); HEMATOCRIT 29 % (39-51); HEMOGLOBIN 9.2 g/dL (13.5-17.5); LYMPHOCYTES # (AUTO) 2.1 /CMM (0.8-4.8); LYMPHOCYTES % (AUTO) 13.4 % (20.0-44.0); MEAN CORPUSCULAR HGB CONC 32 g/dl (31.0-36.0); MEAN CORPUSCULAR VOLUME 91 fL (80-96); MONOCYTES # (AUTO) 1.5 /CMM (0.1-1.30); MONOCYTES % (AUTO) 9.9 % (2.0-12.0); NEUTROPHILS # (AUTO) 11.3 /CMM (1.8-8.9); NEUTROPHILS % (AUTO) 72.8 % (43.0-81.0); PLATELET COUNT (AUTO) 257 /CMM (150-450); WHITE BLOOD COUNT (AUTO) 15.5 K/uL (4.3-11.0)
[2019-04-11 14:20] LABS: CALCIUM, SERUM 8.4 mg/dL (8.5-10.1); CARBON DIOXIDE 26 mmol/L (21-32); CHLORIDE 96 mmol/L (98-107); GLUCOSE 152 mg/dL (74-106); POTASSIUM 4.1 mmol/L (3.5-5.1); SODIUM SERUM 136 mmol/L (136-145); UREA NITROGEN, BLOOD 51 mg/dL (7-18)
[2019-04-11 14:27] LABS: CREATININE 14.8 mg/dL (0.6-1.3)
[2019-04-11] MEDS ORDERED: hydrALAZINE HCL IV 20 MG VIAL IV ONE (14:30)
[2019-04-11] MEDS ORDERED: NICARDIPINE IN DEXTROSE,ISO-OS 200 ML IV PRN (15:00)
[2019-04-11] MEDS ORDERED: NICARDIPINE HCL 20 MG in IV D5W 192 ML IV PRN ×4 (15:00)
--- NOTE | 2019-04-11 15:30 | NUR ---
RN NOTES PATIENT TRANSPORT AT BEDSIDE, REPORT GIVEN TO RN AND EMT TRANSPORTERS, ALL DISCHARGE PAPERWORK AND INSTRUCTIONS REVIEWED WITH SON AT BEDSIDE AND UPDATED ON PLAN OF CARE, AND OBTAINED CONSENT FOR TRANSFER ALL PAPERWORK PLACED IN CHART. PT NOW WITH ORDERS FOR HYDRALAZINE GIVEN AND CARDENE DRIP STARTED ORDERED TO CONTROL BP, TITRATE ORDERED. RUTH NUNO MADE AWARE OF PT STATUS AND CURRENTLY BEING TRANSFERRED TO [facility]. PT AROUSABLE, CONFUSED, REPEAT CT REPORT RUTH NUNO WHEN MADE AVAILABLE AND IMAGES PROVIDED UPON TRANSFER, LEFT AND RIGHT AC 20G IVS PATENT AND INTACT NO REDNESS OR INFILTRATION NOTED. ENDORSED CARE TO EMT AND RN TRANSPORTERS
[2019-04-11 16:22] LABS: D-DIMER 4.17 mg/L(FEU (0.17-0.50)
[2019-04-11] MEDS ORDERED: METOPROLOL TARTRATE 25 MG TABLET PO SCH (17:00)
[2019-04-11] MEDS ORDERED: PANTOPRAZOLE 40 MG TABLET.DR PO SCH (17:00)
[2019-04-11] MEDS ORDERED: BLOOD SUGAR DIAGNOSTIC 1 EACH STRIP IN SCH ×2 (17:30→18:00)
[2019-04-11] MEDS ORDERED: AMLODIPINE BESYLATE 10 MG TABLET PO SCH (22:00)
--- NOTE | 2019-04-12 08:40 | NUR ---
Social service consult requested by Dr. Suarez for stroke. SW was unable to assess pt. due to pt. transferred to [facility] yesterday evening.
[2019-04-12] MEDS ORDERED: BENAZEPRIL HCL 20 MG TABLET PO SCH (09:00)
[2019-04-12] MEDS ORDERED: VIT B CMPLX 3/FA/VIT C/BIOTIN 1 TAB TABLET PO SCH (09:00)
== END 2019-04-11 15:59 | disposition short-term general hospital (02) | DRG 82 ==
LOC: ER 06:04 → ICU 09:09
PROVIDERS: ADMIT Internal Medicine; ATTEND Internal Medicine Nephrology
DX: S06.5X9A Traumatic subdural hemorrhage with loss of consciousness of unspecified duration, initial encounter (principal); N18.6 End stage renal disease; I13.2 Hypertensive heart and chronic kidney disease with heart failure and with stage 5 chronic kidney disease, or end stage renal disease; G45.0 Vertebro-basilar artery syndrome; W18.30XA Fall on same level, unspecified, initial encounter; Y92.9 Unspecified place or not applicable; Z99.2 Dependence on renal dialysis; I50.9 Heart failure, unspecified; Z86.73 Personal history of transient ischemic attack (TIA), and cerebral infarction without residual deficits; Z87.01 Personal history of pneumonia (recurrent); K21.9 Gastro-esophageal reflux disease without esophagitis; Z79.899 Other long term (current) drug therapy; I27.20 Pulmonary hypertension, unspecified; D64.9 Anemia, unspecified; M10.9 Gout, unspecified; N25.0 Renal osteodystrophy; R26.9 Unspecified abnormalities of gait and mobility
CPT/HCPCS: 36415; 70450-TC; 71045-TC; 72125-TC; 80048-TC; 80076-TC; 82962-TC; 84484-TC; 85025-TC; 85378-TC; 85385-TC; 85730-TC; 87081-TC; G0378; J0360; J1953; J2405; J3490; J7030

== ENCOUNTER 2019-10-06 18:34 | Inpatient (IN) | payer MEDICARE ==
[~2019-10-06] VITALS: Ht 180.3 cm; Wt 82.6 kg
--- NOTE | 2019-10-06 18:52 | NUR ---
CAME IN FOR BLACK STOOLS X 3 DAYS. HX GI BLEED. DENIES ABDOMINAL PAIN. TO ER BED 8, HOOKED TO MONITOR, CHANGED TO HOSPITAL GOWN, PROVIDED W WARM BLANKET, DR CAVANAUGH AT BEDSIDE
--- NOTE | 2019-10-06 19:07 | NUR ---
Note jered in EDM - 10/06/19 at 1930 by FIDENCIO CAME IN FOR BLACK STOOLS X 3 DAYS. HX GI BLEED. DENIES ABDOMINAL PAIN. TO ER BED 8, HOOKED TO MONITOR, CHANGED TO HOSPITAL GOW, PROVIDED W WARM BLANKET, AWAITING MD ATKINS.
--- NOTE | 2019-10-06 19:28 | NUR ---
REPORT GIVEN TO FABIAN SAMUELS FOR BRADY
[2019-10-06 19:30] LABS: BASOPHILS # (AUTO) 0.1 /CMM (0.0-0.2); BASOPHILS % (AUTO) 0.5 % (0.0-2.0); EOSINOPHILS % (AUTO) 0.9 % (0.0-6.0); LYMPHOCYTES # (AUTO) 1.5 /CMM (0.8-4.8); LYMPHOCYTES % (AUTO) 13.3 % (20.0-44.0); MEAN CORPUSCULAR HGB CONC 32 g/dl (31.0-36.0); MEAN CORPUSCULAR VOLUME 104 fL (80-96); MONOCYTES # (AUTO) 0.7 /CMM (0.1-1.30); MONOCYTES % (AUTO) 6.3 % (2.0-12.0); NEUTROPHILS # (AUTO) 8.8 /CMM (1.8-8.9); PLATELET COUNT (AUTO) 268 /CMM (150-450); WHITE BLOOD COUNT (AUTO) 11.1 K/uL (4.3-11.0)
[2019-10-06 19:35] LABS: RED BLOOD CELL COUNT(AUTO) 1.63 MIL/uL (4.5-6.0)
[2019-10-06 19:36] LABS: HEMATOCRIT 17 % (39-51); HEMOGLOBIN 5.4 g/dL (13.5-17.5)
--- NOTE | 2019-10-06 19:40 | NUR ---
HGB 5.4 HCT 17
[2019-10-06 19:43] LABS: ALBUMIN 3.2 g/dL (3.4-5.0); BILIRUBIN,TOTAL 0.2 mg/dL (0.2-1.0); CALCIUM, SERUM 8.4 mg/dL (8.5-10.1); POTASSIUM 5.5 mmol/L (3.5-5.1); TOTAL PROTEIN, SERUM 5.9 g/dL (6.4-8.2)
[2019-10-06 19:45] LABS: CREATININE 11.6 mg/dL (0.6-1.3)
--- NOTE | 2019-10-06 19:48 | NUR ---
CALLED FOR [facility] BED
--- NOTE | 2019-10-06 19:49 | NUR ---
BLOOD TRANFUSION CONSENT OBATINED FROM PT
--- NOTE | 2019-10-06 20:01 | NUR ---
PAGED DR LORENZANA FOR PANEL
--- NOTE | 2019-10-06 20:15 | NUR ---
RECIEVED [id number] WALE
[2019-10-06 20:27] LABS: OCCULT BLOOD STOOL POSITIVE (NEGATIVE)
--- NOTE | 2019-10-06 20:49 | NUR ---
BED CHANGED 307-1
[2019-10-06 20:53] LABS: LYMPHOCYTES % (MANUAL) 12 % (16-48); MONOCYTES % (MANUAL) 8 % (0-11.0); NEUTROPHILS % (MANUAL) 80 (42-76)
--- NOTE | 2019-10-06 20:57 | NUR ---
RREPORT GIVEN TO ABRIL CARTWRIGHT FOR BRADY.
[2019-10-06] MEDS ORDERED: IV NS 0.9% 1,000 ML IV PRN (21:03)
--- NOTE | 2019-10-06 21:08 | NUR ---
BED 117-2
--- NOTE | 2019-10-06 21:11 | NUR ---
WALE RN NOTES ADMITTED A 64 Y/O MALE ALERT ORIENTED X4 ABLE TO MAKE NEEDS KNOWN, PTS ON MONITOR SR -85 NO SOB NO DISTRESS NOTED .V/S STABLE AFEBRILE PTS IS FULL CODE , HEMODIALYSIS Q TTHS ,PTS IS NKDA , ON R/A SATING 100%, PTS IS CONTINENT ,ADMITTED WITH DX OF ANEMIA SECONDARY TO GI BLEED, HGB OF 5.4 WITH ORDER TO TRANSFUSED I PRBC ORDER BY ER DOCTOR .PER ENDORSEMENT OF ER NURSE FABIAN .WITH RIGHT AC GAUGE #18 INTACT AND PATENT , PTS IS AMBULATORY WITH ASSIST , NOTED WITH RIGHT UPPER CHEST HD CATH AND ABDOMINAL PERITONEAL DIALYSIS WHICH IS NOT WORKING.SKIN INTACT, NPO STATUS .KEPT PTS CLEAN DRY AND COMFORTABLE.WILL CONTINUE TO MONITOR PTS.
--- NOTE | 2019-10-06 21:17 | NUR ---
[facility] AND RN AT BEDSIDE W/ ACLS PROTOCOL. NAD NOTED DURING TRANSPORT
[2019-10-06 21:25] VITALS: BP 152/78
[2019-10-06] MEDS ORDERED: ACETAMINOPHEN 325 MG TABLET PO PRN (21:30)
[2019-10-06] MEDS ORDERED: Z GUARD REMEDY 2 OZ OINT TP PRN (21:30)
[2019-10-06] MEDS ORDERED: HYDROCODONE/APAP 5/325MG 1 EACH TABLET PO PRN (21:30)
[2019-10-06] MEDS ORDERED: ONDANSETRON HCL/PF 4 MG/2 ML VIAL IVP PRN (21:30)
[2019-10-06 22:00] VITALS: BP 152/78
--- NOTE | 2019-10-06 22:00 | NUR ---
WALE RN NOTES BLOOD TRANSFUSION OF 1 UNIT OF PRBC O POSITIVE STARTED AT 2200HRS WITH NO ADVERSE SIDE EFFECT NOTED , V/S STABLE AFEBRILE.
[2019-10-06 22:15] VITALS: BP 140/93
[2019-10-06 22:30] VITALS: BP 140/82
[2019-10-06] MEDS: AMLODIPINE BESYLATE 10 MG TABLET PO SCH (22:56)
[2019-10-06 23:00] VITALS: BP 154/89
[2019-10-07] VITALS (12 sets, daily range): BP systolic 138–166; BP diastolic 68–89
--- NOTE | 2019-10-07 01:00 | NUR ---
WALE RN NOTES BLOOD TRANSFUSION ENDED AT 0100HRS WITH ASE NOTED .WILL CONTINUE TO MONITOR PTS.
[2019-10-07] MEDS ORDERED: PANTOPRAZOLE 40 MG VIAL IV SCH ×2 (06:00→09:00)
--- NOTE | 2019-10-07 06:00 | NUR ---
maricel rn notes spoke to marcela escobar re pts c/o heartburn with order may start protonix 40mg ivp at 6am , given as ordered .will endorse to rn day shift for continuity of care.
[2019-10-07 06:54] LABS: BASOPHILS % (AUTO) 0.4 % (0.0-2.0); EOSINOPHILS % (AUTO) 2.8 % (0.0-6.0); LYMPHOCYTES # (AUTO) 1.6 /CMM (0.8-4.8); LYMPHOCYTES % (AUTO) 18.7 % (20.0-44.0); MEAN CORPUSCULAR HGB CONC 33 g/dl (31.0-36.0); MEAN CORPUSCULAR VOLUME 100 fL (80-96); MONOCYTES # (AUTO) 0.6 /CMM (0.1-1.30); MONOCYTES % (AUTO) 7.3 % (2.0-12.0); NEUTROPHILS # (AUTO) 5.9 /CMM (1.8-8.9); NEUTROPHILS % (AUTO) 70.8 % (43.0-81.0); PLATELET COUNT (AUTO) 219 /CMM (150-450); WHITE BLOOD COUNT (AUTO) 8.3 K/uL (4.3-11.0)
--- NOTE | 2019-10-07 07:15 | NUR ---
WALE RN OPENING NOTES RECEIVED PT LYING ON BED,ALERT/ORIENTED X4.ON TELE HR IS 82 WITH NSR.ON ROOM AIR,TOLERATING WELL.NO SOB AND ACUTE DISTRESS NOTED.IV LINE IS ON RIGHT AC G18 WITH NS @100CC/HR IS RUNNING.SITE IS CLEAN,DRY AND INTACT.NO INFILTRATION NOTED.BED IS IN LOW POSITION AND LOCKED.CALL LIGHT IS WITHIN REACH.WILL CONTINUE TO MONITOR THE PT CLOSELY.
[2019-10-07 07:42] LABS: RED BLOOD CELL COUNT(AUTO) 1.82 MIL/uL (4.5-6.0)
[2019-10-07 07:45] LABS: HEMATOCRIT 18 % (39-51)
[2019-10-07 07:50] LABS: ALBUMIN 2.9 g/dL (3.4-5.0); BILIRUBIN,TOTAL 0.2 mg/dL (0.2-1.0); MAGNESIUM 1.8 mg/dL (1.8-2.4); PHOSPHORUS 4.9 mg/dL (2.5-4.9); TOTAL PROTEIN, SERUM 5.3 g/dL (6.4-8.2)
[2019-10-07 07:52] LABS: BAND % (MANUAL) 1 % (0.0-5.0); EOSINOPHILS % (MANUAL) 1 % (0-4); LYMPHOCYTES % (MANUAL) 22 % (16-48); MONOCYTES % (MANUAL) 5 % (0-11.0); NEUTROPHILS % (MANUAL) 71 (42-76)
[2019-10-07 07:54] LABS: CREATININE 12.4 mg/dL (0.6-1.3); POTASSIUM 6.5 mmol/L (3.5-5.1)
[2019-10-07] MEDS: SUCRALFATE 1 G TABLET PO SCH ×4 (08:06→20:49)
[2019-10-07] MEDS: METOPROLOL TARTRATE 25 MG TABLET PO SCH ×2 (08:09→16:35)
[2019-10-07] MEDS: VIT B CMPLX 3/FA/VIT C/BIOTIN 1 TAB TABLET PO SCH (08:09)
[2019-10-07] MEDS: CALCIUM ACETATE 667 MG TABLET PO SCH ×3 (08:09→17:07)
--- NOTE | 2019-10-07 09:14 | NUR ---
MS RN NOTES DR.DANNY ARREOLA VERBALLY ORDERED THE HEMODIALYSIS TODAY.NEW ORDERS NOTED AND CARRIED OUT.
--- NOTE | 2019-10-07 09:48 | NUR ---
MS RN NOTES PT COMPLAINTS OF DIZZINESS AND REQUESTED TO CHANGE IV WITH SUGAR CONTENT.CHECKED THE BLOOD SUGAR VIA FINGERSTICK,IS 118.YAAKOV SZYMANSKI DNP ORDERED TO D/C IV NS AND START IV D5NS @75CC/HR AND MADE AWARE ABOUT THE HEMODIALYSIS TODAY AND BLOOD TRANSFUSION WITH DIALYSIS..NEW ORDERS NOTED AND CARRIED OUT.
--- NOTE | 2019-10-07 10:00 | NUR ---
MS RN NOTES CONSENT OBTAINED FOR HEMODIALYSIS FROM PATIENT.
[2019-10-07] MEDS: IV D5/ 0.9% NACL 1,000 ML IV SCH (11:20)
--- NOTE | 2019-10-07 11:46 | NUR ---
MS RN NOTES SEEN THE PT AND ORDERED TO INCREASE THE PROTONIX IV TO 80MG BID AND KEEP PT ON NPO FOR NOW.RUTH SZYMANSKI MADE AWARE.NEW ORDERS NOTED AND CARRIED OUT.
--- NOTE | 2019-10-07 11:48 | NUR ---
MS RN NOTES HAY RAKE OPERATOR STEPHON ORDERED TO ADMINISTER 1 PRBC NOW AND NO NEED TO WAIT HEMODIALYSIS.NEW ORDERS NOTED AND CARRIED OUT.
--- NOTE | 2019-10-07 14:00 | NUR ---
MS RN NOTES BLOOD TRANSFUSION IS STARTED WITH HEMODIALYSIS AT BEDSIDE BY THE DIALYSIS NURSE.VITAL SIGNS ARE STABLE AND PT TOLERATED WELL.
--- NOTE | 2019-10-07 14:24 | NUR ---
MS RN NOTES SHEILA WOODALL ORDERED TO START CLEAR LIQUID DIET AND NPO AFTER MIDNIGHT.NEW ORDERS NOTED AND CARRIED OUT.
--- NOTE | 2019-10-07 14:50 | NUR ---
MS RN NOTES SAID PLANNING TO DO THE EGD IN AM,CONSENTS OBTAINED FROM PATIENT AT BEDSIDE.
--- NOTE | 2019-10-07 15:35 | NUR ---
MS RN NOTES DIALYSIS NURSE DONE WITH THE 1 PRBC BLOOD TRANSFUSION.STABLE VITAL SIGNS.NO ALLERGIC REACTIONS NOTED.PT STILL CONTINUE WITH HEMODIALYSIS AT BEDSIDE.
--- NOTE | 2019-10-07 15:49 | NUR ---
MS RN NOTES - MADE TELEPHONE ORDER FOR EGD IN AM AFTER THE DIALYSIS AND BLOOD TRANSFUSION TOMORROW. -LEFT THE MESSAGE TO DR.DANNY ARREOLA,NEPHRO TO MADE AWARE ABOUT PLAN FOR DIALYSIS IN AM,AWAITING FOR THE REPLY. -RUTH SZYMANSKI MADE AWARE ABOUT DR.GHOLAMI FONSECA TOMORROW AND SAID WILL ORDER TO RECHECK H/H @8 PM FOR TO ORDER THE BLOOD TRANSFUSION TOMORROW.
--- NOTE | 2019-10-07 16:05 | NUR ---
MS RN NOTES SAID DR.TATOYAN TRAORE BE HERE TOMORROW AND WILL DO EGD,SO WILL PLACE THE ORDER FOR EGD.CHARGE NURSE MADE AWARE.
[2019-10-07 18:09] LABS: THYROID STIMULATING HORMONE 2.53 uIU/mL (0.358-3.74)
--- NOTE | 2019-10-07 18:35 | NUR ---
MS RN CLOSING NOTES PT IS SITTING ON THE EDGE OF THE BED.SHOWER IS DONE.PT IS CLEAN AND DRY.HAVING DINNER NOW..RESPIRATION IS EVEN AND NONLABORED.NO SIGNIFICANT CHANGES NOTED IN THE SHIFT.WILL ENDORSE TO TIMBER FELLER RN FOR BRADY.
[2019-10-07] MEDS: PANTOPRAZOLE 40 MG VIAL IV SCH (20:49)
[2019-10-07] MEDS: AMLODIPINE BESYLATE 10 MG TABLET PO SCH (22:41)
[2019-10-08] MEDS: IV D5/ 0.9% NACL 1,000 ML IV SCH ×2 (00:36→18:45)
[2019-10-08] MEDS ORDERED: PROMETHAZINE HCL SYRUP 6.25 MG/5 ML UDC PO ONE (02:30)
[2019-10-08] MEDS ORDERED: CODEINE/PROMETHAZINE HCL 5 ML UDC PO PRN (03:00)
--- NOTE | 2019-10-08 03:30 | NUR ---
MS CLOTH PICKER NOTE PATIENT REQUESTION PROMETHALAZONE. DR ORDERED 12.5MG BUT UNAVAILABLE IN OMNICELL. CHANGED DOSE AND MED TO PROMETHAZONE/CODEINE 5ML ONCE TIME DOES.
[2019-10-08 04:00] VITALS: BP 144/86
[2019-10-08 06:52] LABS: BASOPHILS % (AUTO) 0.6 % (0.0-2.0); EOSINOPHILS % (AUTO) 3.3 % (0.0-6.0); HEMATOCRIT 22 % (39-51); HEMOGLOBIN 7.2 g/dL (13.5-17.5); LYMPHOCYTES # (AUTO) 1.1 /CMM (0.8-4.8); LYMPHOCYTES % (AUTO) 15.4 % (20.0-44.0); MEAN CORPUSCULAR HGB CONC 34 g/dl (31.0-36.0); MEAN CORPUSCULAR VOLUME 99 fL (80-96); MONOCYTES # (AUTO) 0.6 /CMM (0.1-1.30); MONOCYTES % (AUTO) 7.7 % (2.0-12.0); NEUTROPHILS # (AUTO) 5.4 /CMM (1.8-8.9); PLATELET COUNT (AUTO) 244 /CMM (150-450); RED BLOOD CELL COUNT(AUTO) 2.18 MIL/uL (4.5-6.0); WHITE BLOOD COUNT (AUTO) 7.4 K/uL (4.3-11.0)
[2019-10-08] MEDS ORDERED: FLUTICASONE PROPIONATE 16 GM BOTTLE NS SCH ×3 (07:00→09:00)
[2019-10-08 07:09] LABS: CALCIUM, SERUM 8.3 mg/dL (8.5-10.1); MAGNESIUM 1.9 mg/dL (1.8-2.4); PHOSPHORUS 4.4 mg/dL (2.5-4.9); POTASSIUM 4.5 mmol/L (3.5-5.1)
[2019-10-08 07:17] LABS: CREATININE 9.5 mg/dL (0.6-1.3)
--- NOTE | 2019-10-08 07:20 | NUR ---
MS RN OPENING NOTES RECEIVED PT LYING ON BED,ALERT/ORIENTED X4.ON ROOM AIR,TOLERATING WELL.NO SOB AND ACUTE DISTRESS NOTED.COMPLAINTS OF COUGH ,WAITING FOR FLONASE NASAL SPRAY.ON NPO FOR POSSIBLE EGD TODAY.IV LINE IS ON RIGHT AC G18 WITH NS @100CC/HR IS RUNNING.SITE IS CLEAN,DRY AND INTACT.NO INFILTRATION NOTED.BED IS IN LOW POSITION AND LOCKED.CALL LIGHT IS WITHIN REACH.WILL CONTINUE TO MONITOR THE PT CLOSELY.
--- NOTE | 2019-10-08 07:43 | NUR ---
PERFORMANCE MANAGEMENT CONSULTANT CLOSING NOTE PATIENT IN BED NO DISTRESS OR DISCOMFORT. ALL SAFETY PRECAUTIONS APPLIED. ALL SAFETY PRECAUTIONS APPLIED. ENDORSED PATIENT TO MORNING SHIFT NURSE FOR BRADY.
[2019-10-08 08:00] VITALS: BP_SYST 158; BP_SYST 163; BP_DIAS 69; BP_DIAS 88
[2019-10-08] MEDS: METOPROLOL TARTRATE 25 MG TABLET PO SCH ×2 (09:00→16:43)
[2019-10-08] MEDS: VIT B CMPLX 3/FA/VIT C/BIOTIN 1 TAB TABLET PO SCH (09:29)
[2019-10-08] MEDS: SUCRALFATE 1 G TABLET PO SCH ×4 (09:29→21:05)
[2019-10-08] MEDS: CALCIUM ACETATE 667 MG TABLET PO SCH ×3 (09:30→17:45)
[2019-10-08] MEDS: FLUTICASONE PROPIONATE 16 GM BOTTLE NS SCH ×2 (09:30→16:47)
[2019-10-08] MEDS ORDERED: SALINE NASAL SPRAY 0.65% 1 BOTTLE BOTTLE NS PRN (09:30)
--- NOTE | 2019-10-08 09:50 | NUR ---
MS RN NOTES FLONASE NASAL SPRAY 16GM DUE AT 0930 IS NOT ADMINISTERED IT IS A DUPLICATE ORDER AND ALREADY ADMINISTERED @0747 THE FLONASE NASAL SPRAY.
[2019-10-08] MEDS ORDERED: IPRATROPIUM NEB FS 0.5 MG/2.5 ML AMPUL.NEB NEB PRN (11:00)
--- NOTE | 2019-10-08 11:30 | NUR ---
MS RN NOTES PAGED ,OVEN DUMPER GI X3,LEFT THE MESSAGE.AWAITING FOR THE CALL BACK.
[2019-10-08] MEDS: ALBUTEROL HALF STRENGTH 1.25 MG/3 ML VIAL.NEB NEB PRN ×3 (11:42→14:46)
--- NOTE | 2019-10-08 12:01 | NUR ---
MS RN NOTES CALLED BACK AND INFORMED WILL DO EGD PROCEDURE TODAY.CHARGE NURSE AND PT MADE AWARE.
--- NOTE | 2019-10-08 12:22 | NUR ---
MS RN NOTES CALLED AND SPOKE WITH EPT AND INFORMED EGD PROCEDURE WILL DO @1330 TODAY AND GET THE CONSENT READY FOR IT ALSO ORDERED MUCOMYST NEBULIZATION 200MG Q8HR PRN PER PT REQUEST.NEW ORDERS NOTED AND CARRIED OUT.
[2019-10-08] MEDS ORDERED: ANESTHESIA TRAY IN PYXIS 1 EA TRAY MC ONE (13:34)
--- NOTE | 2019-10-08 13:43 | NUR ---
MS RN NOTES PT PICKED UP BY THE SURGICAL TEAM FOR EGD PROCEDURE.ALL THE CONSENTS HAS DONE AND PT TOLERATED WELL.
[2019-10-08] MEDS ORDERED: LABETALOL HCL IV 100MG VIAL ONE (14:19)
[2019-10-08] MEDS: ACETYLCYSTEINE 10% SOLN 400 MG/4 ML VIAL NEB PRN ×2 (14:36→14:46)
[2019-10-08 14:45] VITALS: BP 158/90
--- NOTE | 2019-10-08 14:45 | NUR ---
MS RN NOTES PT CAME BACK S/P EGD.PT IS AWAKE AND ALERT X3,STILL HAS MILD SEDATION EFFECT.ON ROOM AIR,TOLERATING WELL.RESUME IV FLUID D5NS @75CC/HR. ORDERED TO RESUME ALL THE PREOPERATIVE ORDERS AND GAVE TELEPHONE ORDER TO RESUME REGULAR DIET.VITAL SIGNS CHECKED AND RECORDED.PT DENIES PAIN AND OTHER DISCOMFORT.
--- NOTE | 2019-10-08 15:04 | NUR ---
MS RN NOTES ABRIL ALANIZ IN SURGERY CALLED AND INFORMED SHE GAVE TAB LABETALOL 5MG PO @1420PM FOR HYPERTENSION.
[2019-10-08 16:00] VITALS: BP 159/91
[2019-10-08] MEDS: GUAIFENESIN LA 600 MG TABLET.SA PO SCH ×3 (16:04→21:05)
--- NOTE | 2019-10-08 18:45 | NUR ---
MS RN NOTES IV D5NS IS NOT ADMINISTERED THE PERVIOUS IV BAG IS STILL RUNNING @ 75CC/HR.
--- NOTE | 2019-10-08 18:46 | NUR ---
MS RN CLOSING NOTES PT IS LYING ON BED,ALERT/ORIENTED X4.S/P EGD DONE.PT TOLERATED WELL.RESPIRATION IS EVEN AND NONLABORED.NO SIGNIFICANT CHANGES NOTED IN THE SHIFT.WILL ENDORSE TO ROAD CONTRACTOR RN FOR BRADY.
--- NOTE | 2019-10-08 19:34 | NUR ---
MS RN NOTES RECEIVED PT ON BED. A/O X 4. ON ROOM AIR NO RESPIRATORY DISTRESS NOTED. IV ACCESS ON RAC G18 D5NS RUNNING @75CC/HR, PATENT AND INTACT. HEAD OF BED ELEVATED. SIDE RAILS UP. CALL LIGHT WITHIN REACH. BED IN LOW AND LOCKED POSITION. BED ALARM ON. WILL MONITOR PT CLOSELY.
[2019-10-08 20:00] VITALS: BP 151/81
[2019-10-08] MEDS: PANTOPRAZOLE 40 MG VIAL IV SCH (21:04)
[2019-10-08] MEDS: AMLODIPINE BESYLATE 10 MG TABLET PO SCH (21:05)
[2019-10-09 04:00] VITALS: BP 153/71
[2019-10-09 06:22] LABS: CALCIUM, SERUM 8.2 mg/dL (8.5-10.1); MAGNESIUM 1.8 mg/dL (1.8-2.4); PHOSPHORUS 5.3 mg/dL (2.5-4.9); POTASSIUM 4.9 mmol/L (3.5-5.1)
[2019-10-09] MEDS: MAG HYDROX/AL HYDROX/SIMETH 30 ML UDC PO PRN (06:24)
[2019-10-09 06:27] LABS: CREATININE 11.8 mg/dL (0.6-1.3)
[2019-10-09 06:47] LABS: BASOPHILS % (AUTO) 0.5 % (0.0-2.0); EOSINOPHILS % (AUTO) 2.9 % (0.0-6.0); HEMATOCRIT 24 % (39-51); HEMOGLOBIN 8.2 g/dL (13.5-17.5); LYMPHOCYTES # (AUTO) 1.2 /CMM (0.8-4.8); LYMPHOCYTES % (AUTO) 12.6 % (20.0-44.0); MEAN CORPUSCULAR HGB CONC 34 g/dl (31.0-36.0); MEAN CORPUSCULAR VOLUME 100 fL (80-96); MONOCYTES # (AUTO) 0.9 /CMM (0.1-1.30); MONOCYTES % (AUTO) 9.5 % (2.0-12.0); NEUTROPHILS # (AUTO) 7.1 /CMM (1.8-8.9); NEUTROPHILS % (AUTO) 74.5 % (43.0-81.0); PLATELET COUNT (AUTO) 263 /CMM (150-450); RED BLOOD CELL COUNT(AUTO) 2.42 MIL/uL (4.5-6.0); WHITE BLOOD COUNT (AUTO) 9.5 K/uL (4.3-11.0)
--- NOTE | 2019-10-09 07:15 | NUR ---
MS RN NOTES NO ACUTE CHANGES NOTED DURING THE SHIFT, NO ACTIVE BLEEDING NOTED. PROVIDED COMFORT AND SAFETY. WILL ENDORSE TO THE AM NURSE FOR CONTINUITY OF CARE.
--- NOTE | 2019-10-09 07:20 | NUR ---
RN INITIAL NOTE PATIENT IN BED, AWAKE AND ALERT. ON ROOM AIR, NO SOB NOTED. NO COMPLAINS AT THIS TIME. HAS A RIGHT AC #18, SL. AND RIGHT SUBCLAVIAN HD CATH. S/P 2 UNITS OF PRBC. STABLE HGB THIS AM AT 8.2. BED LOCKED AND IN LOWEST POSITION. CALL LIGHT WITHIN REACH. WILL CONTINUE TO MONITOR
[2019-10-09 08:00] VITALS: BP 174/83
[2019-10-09] MEDS: SUCRALFATE 1 G TABLET PO SCH ×4 (08:29→21:16)
[2019-10-09] MEDS: GUAIFENESIN LA 600 MG TABLET.SA PO SCH ×2 (08:29→21:16)
[2019-10-09] MEDS: CALCIUM ACETATE 667 MG TABLET PO SCH ×3 (08:29→17:13)
[2019-10-09] MEDS: VIT B CMPLX 3/FA/VIT C/BIOTIN 1 TAB TABLET PO SCH (08:29)
[2019-10-09] MEDS: METOPROLOL TARTRATE 25 MG TABLET PO SCH ×2 (08:29→16:23)
[2019-10-09] MEDS: FLUTICASONE PROPIONATE 16 GM BOTTLE NS SCH ×2 (08:50→16:23)
[2019-10-09] MEDS: hydrALAZINE HCL 50 MG TABLET PO SCH ×3 (09:14→16:23)
--- NOTE | 2019-10-09 09:30 | NUR ---
RN NOTE DR MACDONALD AT BEDSIDE, AWARE THAT PATIENT'S BP WAS 170s. MANUAL BP WAS ORDERED, BP 170/98. MD ORDERED ADDITIONAL BP MEDS - HYDRALAZINE. PATIENT AWARE AND HAS TAKEN THE MEDICATION
[2019-10-09] MEDS ORDERED: PSEUDOEPHEDRINE HCL 30 MG TABLET PO PRN (11:30)
[2019-10-09] MEDS ORDERED: LEVOFLOXACIN (500MG) 500 MG TABLET PO ONE (11:30)
[2019-10-09 16:00] VITALS: BP 168/92
--- NOTE | 2019-10-09 18:48 | NUR ---
RN CLOSING NOTE PATIENT IN BED, AWAKE AND ALERT. ON DIALYSIS RIGHT NOW. PATIENT'S BP HAS BEEN ELEVATED. COLOR STRIPPER AWARE. CARDIAC MD ORDERED ADDITIONAL BP MEDS. PATIENT AMBULATORY, HAD A SHOWER TODAY. HAS A RIGHT SUBCLAVIAN HD CATH, RIGHT ABDOMEN PERITONEAL, LEFT FA #20 SALINE LOCKED. NO COMPLAINS OF ANY PAIN NOR SOB AT THIS TIME. STATES HE WILL EAT DINNER AFTER DIALYSIS. BED LOCKED AND IN LOWEST POSITION. CALL LIGHT WITHIN REACH. WILL ENDORSE TO NOC SHIFT FOR BRADY
--- NOTE | 2019-10-09 19:57 | NUR ---
MS RN NOTES RECEIVED PT ON BED. A/O X 4. ON GOING HD, ON RA NO RESPIRATORY DISTRESS NOTED. IV ACCESS ON LFA G20 PATENT AND INTACT HD CATH ON RIGHT CHEST WALL, NO BLEEDING NOTED. HEAD OF BED ELEVATED, SIDE RAILS UP. CALL LIGHT WITHIN REACH. BED ALARM ON. BED IN LOW AND LOCKED POSITION. WILL MONITOR PT CLOSELY.
[2019-10-09 20:08] VITALS: BP 155/84
[2019-10-09] MEDS: PANTOPRAZOLE 40 MG VIAL IV SCH (21:16)
[2019-10-09] MEDS: AMLODIPINE BESYLATE 10 MG TABLET PO SCH (21:16)
[2019-10-10] MEDS ORDERED: PSEUDOEPHEDRINE HCL 30 MG TABLET ONE (02:43)
[2019-10-10 04:00] VITALS: BP 164/84
[2019-10-10 07:16] LABS: CALCIUM, SERUM 8.5 mg/dL (8.5-10.1); MAGNESIUM 2.1 mg/dL (1.8-2.4); PHOSPHORUS 4.7 mg/dL (2.5-4.9)
[2019-10-10 07:18] LABS: BASOPHILS % (AUTO) 0.3 % (0.0-2.0); EOSINOPHILS % (AUTO) 2.1 % (0.0-6.0); HEMATOCRIT 25 % (39-51); HEMOGLOBIN 8.1 g/dL (13.5-17.5); LYMPHOCYTES # (AUTO) 0.9 /CMM (0.8-4.8); LYMPHOCYTES % (AUTO) 10.8 % (20.0-44.0); MEAN CORPUSCULAR HGB CONC 33 g/dl (31.0-36.0); MEAN CORPUSCULAR VOLUME 101 fL (80-96); MONOCYTES # (AUTO) 0.9 /CMM (0.1-1.30); MONOCYTES % (AUTO) 10.4 % (2.0-12.0); NEUTROPHILS # (AUTO) 6.6 /CMM (1.8-8.9); NEUTROPHILS % (AUTO) 76.4 % (43.0-81.0); PLATELET COUNT (AUTO) 256 /CMM (150-450); RED BLOOD CELL COUNT(AUTO) 2.47 MIL/uL (4.5-6.0); WHITE BLOOD COUNT (AUTO) 8.6 K/uL (4.3-11.0)
[2019-10-10 07:25] LABS: CREATININE 10.3 mg/dL (0.6-1.3)
[2019-10-10] MEDS: MAG HYDROX/AL HYDROX/SIMETH 30 ML UDC PO PRN ×2 (07:48→13:45)
[2019-10-10] MEDS: CALCIUM ACETATE 667 MG TABLET PO SCH ×2 (07:48→12:58)
[2019-10-10 08:00] VITALS: BP 154/82
[2019-10-10] MEDS ORDERED: LISINOPRIL (10MG) 10 MG TABLET PO SCH (09:00)
[2019-10-10] MEDS: METOPROLOL TARTRATE 25 MG TABLET PO SCH ×2 (09:41→17:57)
[2019-10-10] MEDS: SUCRALFATE 1 G TABLET PO SCH ×3 (09:41→17:56)
[2019-10-10] MEDS: hydrALAZINE HCL 50 MG TABLET PO SCH ×3 (09:41→17:56)
[2019-10-10] MEDS: VIT B CMPLX 3/FA/VIT C/BIOTIN 1 TAB TABLET PO SCH (09:42)
[2019-10-10] MEDS: GUAIFENESIN LA 600 MG TABLET.SA PO SCH ×2 (09:42→17:56)
[2019-10-10] MEDS: FLUTICASONE PROPIONATE 16 GM BOTTLE NS SCH (09:48)
[2019-10-10] MEDS ORDERED: SUCR1TAB PO (14:25)
[2019-10-10] MEDS ORDERED: LEVO500T90 PO (14:25)
[2019-10-10] MEDS ORDERED: LISI10TA5 PO (14:25)
[2019-10-10] MEDS ORDERED: HYDR-4077 PO (14:25)
[2019-10-10] MEDS ORDERED: PANT40TA2 PO (14:25)
[2019-10-10 16:00] VITALS: BP 145/80
[2019-10-10 17:57] VITALS: BP 145/80
[2019-10-11] MEDS ORDERED: LEVOFLOXACIN (250MG) 250 MG TABLET PO SCH (09:00)
== END 2019-10-10 17:30 | disposition home or self-care (01) | DRG 377 ==
LOC: ER 18:37 → TELE1 20:20 → TELE-TD 21:41 → MEDSG1 10-07 18:07
PROVIDERS: ADMIT Hospitalist; ATTEND Nurse Practitioner Acute Care
PROC: 30233N1 Transfusion of Nonautologous Red Blood Cells into Peripheral Vein, Percutaneous Approach (ICD-10-PCS; principal; 2019-10-06)
PROC: 0DB78ZX Excision of Stomach, Pylorus, Via Natural or Artificial Opening Endoscopic, Diagnostic (ICD-10-PCS; 2019-10-08)
DX: K25.4 Chronic or unspecified gastric ulcer with hemorrhage (principal); N18.6 End stage renal disease; I13.2 Hypertensive heart and chronic kidney disease with heart failure and with stage 5 chronic kidney disease, or end stage renal disease; E44.1 Mild protein-calorie malnutrition; D62 Acute posthemorrhagic anemia; D63.1 Anemia in chronic kidney disease; I27.20 Pulmonary hypertension, unspecified; Z99.2 Dependence on renal dialysis; Z86.73 Personal history of transient ischemic attack (TIA), and cerebral infarction without residual deficits; K31.9 Disease of stomach and duodenum, unspecified; Z87.891 Personal history of nicotine dependence; Z87.11 Personal history of peptic ulcer disease; Z79.899 Other long term (current) drug therapy; K44.9 Diaphragmatic hernia without obstruction or gangrene; I70.0 Atherosclerosis of aorta; E87.5 Hyperkalemia; I50.9 Heart failure, unspecified; M10.9 Gout, unspecified; J06.9 Acute upper respiratory infection, unspecified
CPT/HCPCS: 36415; 71045-TC; 80048-TC; 80053-TC; 80061-TC; 80074; 80076-TC; 82272-TC; 82962-TC; 83540-TC; 83735-TC; 84100-TC; 84443-TC; 84484-TC; 85025-TC; 85730-TC; 86850-TC; 86921-TC; 87081-TC; 88305-TC; 88313-TC; 88342; 90935-TC; 94799-TC; C9113; G0378; J2704; J3490; J7030; J7042; P9016-BL; Q0169

== ENCOUNTER 2019-12-31 10:10 | Emergency (ER) | payer MEDICARE ==
[~2019-12-31] VITALS: Ht 180.3 cm; Wt 81.6 kg
[~2019-12-31 10:10] MED LIST changes: +HYDR-4077 PO; +LEVO500T90 PO; +LISI10TA5 PO
--- NOTE | 2019-12-31 11:50 | NUR ---
CAME IN FOR COUGH AND CONGESTION x 1 WEEK, TO ER BED 10, HOOKED TO MONITOR AND POX, WARM BLANKET PROVIDED, PATIENT AOx 4, BREATHING EVEN AND UNLABORED, DR NELSON AT BEDSIDE.
[2019-12-31 12:02] VITALS: BP 135/86
== END 2019-12-31 12:03 | disposition home or self-care (01) ==
LOC: ER 10:12
DX: J40 Bronchitis, not specified as acute or chronic (principal); E11.22 Type 2 diabetes mellitus with diabetic chronic kidney disease; I12.0 Hypertensive chronic kidney disease with stage 5 chronic kidney disease or end stage renal disease; N18.6 End stage renal disease; Z98.890 Other specified postprocedural states; Z60.2 Problems related to living alone; Z79.899 Other long term (current) drug therapy
CPT/HCPCS: 71045-TC

== ENCOUNTER 2020-07-06 08:44 | Inpatient (IN) | payer MEDICARE ==
[~2020-07-06] VITALS: Ht 180.3 cm; Wt 82.1 kg
--- NOTE | 2020-07-06 09:24 | NUR ---
PT R EC'D TO ER GI BLEED . IV STARTED 18 RT AC LABS DRAWN SENT T PT IS DIAYLISIS WAS HAVING A TRASFUSION TODAY BP DROPPED
[2020-07-06] MEDS ORDERED: PANTOPRAZOLE 80 MG in IV NS 0.9% 100 ML IV ONE (10:00)
--- NOTE | 2020-07-06 10:00 | NUR ---
CALLED DR PHILLIP OFFICE FOR CONSULT. LEFT A MESSAGE. WAITING FOR A CALL BACK.
[2020-07-06 10:06] LABS: BASOPHILS # (AUTO) 0.1 /CMM (0.0-0.2); BASOPHILS % (AUTO) 0.7 % (0.0-2.0); EOSINOPHILS % (AUTO) 3.5 % (0.0-6.0); HEMATOCRIT 38 % (39-51); HEMOGLOBIN 11.8 g/dL (13.5-17.5); LYMPHOCYTES # (AUTO) 2.4 /CMM (0.8-4.8); LYMPHOCYTES % (AUTO) 19.6 % (20.0-44.0); MEAN CORPUSCULAR HGB CONC 31 g/dl (31.0-36.0); MEAN CORPUSCULAR VOLUME 108 fL (80-96); MONOCYTES # (AUTO) 1.6 /CMM (0.1-1.30); NEUTROPHILS # (AUTO) 7.6 /CMM (1.8-8.9); NEUTROPHILS % (AUTO) 63.2 % (43.0-81.0); PLATELET COUNT (AUTO) 278 /CMM (150-450); RED BLOOD CELL COUNT(AUTO) 3.49 MIL/uL (4.5-6.0)
[2020-07-06] MEDS ORDERED: PANTOPRAZOLE 40 MG VIAL ONE (10:08)
[2020-07-06] MEDS ORDERED: ONDANSETRON HCL/PF 4 MG/2 ML VIAL ONE (10:12)
[2020-07-06 10:22] LABS: ALANINE AMINOTRANSFERASE 23 U/L (12-78); ALBUMIN 3.3 g/dL (3.4-5.0); ALKALINE PHOSPHATASE 46 U/L (46-116); ASPARTATE AMINOTRANSFERASE 25 U/L (15-37); BILIRUBIN,DIRECT 0.1 mg/dL (0.0-0.2); BILIRUBIN,TOTAL 0.3 mg/dL (0.2-1.0); CALCIUM, SERUM 8.6 mg/dL (8.5-10.1); CARBON DIOXIDE 33 mmol/L (21-32); CHLORIDE 101 mmol/L (98-107); GLUCOSE 114 mg/dL (74-106); LIPASE 326 U/L (73-393); POTASSIUM 4.5 mmol/L (3.5-5.1); SODIUM SERUM 139 mmol/L (136-145); TOTAL PROTEIN, SERUM 6.7 g/dL (6.4-8.2); UREA NITROGEN, BLOOD 24 mg/dL (7-18)
--- NOTE | 2020-07-06 10:28 | NUR ---
CREATINE 9
[2020-07-06] MEDS ORDERED: ONDANSETRON HCL/PF 4 MG/2 ML VIAL IV ONE (10:30)
--- NOTE | 2020-07-06 10:35 | NUR ---
PT SITTING ON BEDPAN . SM [facility] LIQUID STOOL VSS
--- NOTE | 2020-07-06 10:57 | NUR ---
JOSE M PHILLIP [phone]
[2020-07-06 11:12] LABS: EOSINOPHILS % (MANUAL) 4 % (0-4); LYMPHOCYTES % (MANUAL) 28 % (16-48); MONOCYTES % (MANUAL) 8 % (0-11.0); NEUTROPHILS % (MANUAL) 60 (42-76)
--- NOTE | 2020-07-06 11:29 | NUR ---
NURSING SUPP CALLED FOR TELE BED.
--- NOTE | 2020-07-06 11:34 | NUR ---
LAB CALLED. PT IS ANTIBODY POSITIVE.
[2020-07-06] MEDS ORDERED: ZOLPIDEM TARTRATE 5 MG TABLET PO PRN (12:00)
[2020-07-06] MEDS ORDERED: PANTOPRAZOLE 80 MG in IV NS 0.9% 500 ML IV PRN (12:00)
[2020-07-06] MEDS ORDERED: ACETAMINOPHEN 325 MG TABLET PO PRN (12:00)
[2020-07-06] MEDS ORDERED: MAGNESIUM HYDROXIDE 30 ML UDC PO PRN (12:00)
--- NOTE | 2020-07-06 12:05 | NUR ---
LAB CALLED COVID-19 NEG. (-)
--- NOTE | 2020-07-06 12:40 | NUR ---
REPORT GIVEN TO ROBERT SAMUELS FOR [facility].
[2020-07-06 13:15] VITALS: BP 102/62
--- NOTE | 2020-07-06 13:23 | NUR ---
pt stable for transfer to floor
[2020-07-06] MEDS: SUCRALFATE 1 G TABLET PO SCH ×3 (13:36→20:04)
[2020-07-06] MEDS: CALCIUM ACETATE 667 MG TABLET PO SCH ×2 (13:37→18:04)
[2020-07-06 14:01] LABS: BASOPHILS # (AUTO) 0.1 /CMM (0.0-0.2); BASOPHILS % (AUTO) 0.5 % (0.0-2.0); EOSINOPHILS % (AUTO) 0.6 % (0.0-6.0); HEMATOCRIT 35 % (39-51); HEMOGLOBIN 10.8 g/dL (13.5-17.5); LYMPHOCYTES # (AUTO) 1.7 /CMM (0.8-4.8); LYMPHOCYTES % (AUTO) 11.4 % (20.0-44.0); MEAN CORPUSCULAR HGB CONC 31 g/dl (31.0-36.0); MEAN CORPUSCULAR VOLUME 109 fL (80-96); MONOCYTES # (AUTO) 1.3 /CMM (0.1-1.30); MONOCYTES % (AUTO) 8.9 % (2.0-12.0); NEUTROPHILS # (AUTO) 11.7 /CMM (1.8-8.9); NEUTROPHILS % (AUTO) 78.6 % (43.0-81.0); PLATELET COUNT (AUTO) 270 /CMM (150-450); RED BLOOD CELL COUNT(AUTO) 3.21 MIL/uL (4.5-6.0); WHITE BLOOD COUNT (AUTO) 14.9 K/uL (4.3-11.0)
--- NOTE | 2020-07-06 14:42 | NUR ---
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 Pt alert and oriented x 4, and able to make needs known. Denies any pain and discomfort at time. Pt oriented to staff and room. Vital signs taken and recorded. Pt with diagnosis of GI bleed with no noted bleeding at this time. Pt noted with right upper chest wall perma cath, and left upper arm AV shunt with positive bruit and thrill. Noted IV access on right AC guage 18# intact and patent. Pt placed on tele monitoring with current reading of NSR, with HR on the 80s, with no complain of cardiac distress. Safety measures initiated. Bed placed in lowest locked position, with side rails up x2 and call light placed within easy reach of patient. Will continue to monitor pt accordingly.
[2020-07-06] MEDS: PANTOPRAZOLE 40 MG VIAL IV SCH (16:22)
[2020-07-06] MEDS ORDERED: PANTOPRAZOLE 40 MG TABLET.DR PO SCH (17:00)
--- NOTE | 2020-07-06 18:47 | NUR ---
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 Right upper chest wall perma cath in place, and left upper arm AV shunt with positive bruit and thrill present. IV access on right AC guage 18# intact and patent. On tele monitoring with current reading of NSR, with HR of 95, with no complain of cardiac distress. Safety measures initiated. Bed placed in lowest locked position, with side rails up x2 and call light placed within easy reach of patient. Pt with orders to collect stool specimen for stool cdiff and C&S. No available stool at this time, will endorse to next shift.
[2020-07-06 20:00] VITALS: BP 91/66
--- NOTE | 2020-07-06 20:00 | NUR ---
SENIOR DIRECTOR OPENING NOTES RECEIVED PATIENT IN BED, AWAKE, CONSCIOUS, A/O X4, BREATHING AT ROOM AIR, NO SIGNS OF RESPIRATORY DISTRESS, RIGHT UPPER CHEST WALL PERMA CATH, MITCHELL AV SHUNT, NO SIGNS OF BLEEDING NOTED, RAC #18G, SIDE RAILS UP.
[2020-07-07] VITALS: BP 131/66
[2020-07-07 04:00] VITALS: BP 130/72
--- NOTE | 2020-07-07 06:48 | NUR ---
DISMANTLER CLOSING NOTES ENDORSED PATIENT IN BED, AWAKE, CONSCIOUS, A/O X4, BREATHING AT ROOM AIR, NO SIGNS OF RESPIRATORY DISTRESS, RIGHT UPPER CHEST WALL PERMA CATH, MITCHELL AV SHUNT, NO SIGNS OF BLEEDING NOTED, RAC #18G, DUE MEDS GIVEN, NO COMPLAINTS OF PAIN, SIDE RAILS UP FOR SAFETY.
[2020-07-07 07:12] LABS: BASOPHILS # (AUTO) 0.1 /CMM (0.0-0.2); BASOPHILS % (AUTO) 0.4 % (0.0-2.0); EOSINOPHILS % (AUTO) 2.9 % (0.0-6.0); HEMATOCRIT 32 % (39-51); HEMOGLOBIN 10.2 g/dL (13.5-17.5); LYMPHOCYTES # (AUTO) 2.4 /CMM (0.8-4.8); LYMPHOCYTES % (AUTO) 17.7 % (20.0-44.0); MEAN CORPUSCULAR HGB CONC 32 g/dl (31.0-36.0); MEAN CORPUSCULAR VOLUME 109 fL (80-96); MONOCYTES # (AUTO) 1.3 /CMM (0.1-1.30); NEUTROPHILS # (AUTO) 9.2 /CMM (1.8-8.9); PLATELET COUNT (AUTO) 279 /CMM (150-450); RED BLOOD CELL COUNT(AUTO) 2.97 MIL/uL (4.5-6.0); WHITE BLOOD COUNT (AUTO) 13.4 K/uL (4.3-11.0)
[2020-07-07 07:39] LABS: CALCIUM, SERUM 8.9 mg/dL (8.5-10.1); MAGNESIUM 2.2 mg/dL (1.8-2.4); PHOSPHORUS 3.4 mg/dL (2.5-4.9); POTASSIUM 5.7 mmol/L (3.5-5.1)
[2020-07-07 08:00] VITALS: BP 115/53
[2020-07-07 08:04] LABS: IRON, SERUM 90 ug/dl (50-175); TOTAL IRON BINDING CAPACITY 161 ug/dl (250-450)
[2020-07-07 08:19] LABS: CREATININE 11.9 mg/dL (0.6-1.3)
[2020-07-07 08:23] LABS: FERRITIN 660 ng/mL (8-388)
[2020-07-07] MEDS: SUCRALFATE 1 G TABLET PO SCH ×4 (08:43→20:33)
[2020-07-07] MEDS: VIT B CMPLX 3/FA/VIT C/BIOTIN 1 TAB TABLET PO SCH (08:43)
[2020-07-07] MEDS: CALCIUM ACETATE 667 MG TABLET PO SCH ×3 (08:43→17:38)
[2020-07-07] MEDS: PANTOPRAZOLE 40 MG VIAL IV SCH ×2 (08:43→17:38)
[2020-07-07 15:29] LABS: BASOPHILS # (AUTO) 0.1 /CMM (0.0-0.2); BASOPHILS % (AUTO) 0.6 % (0.0-2.0); EOSINOPHILS % (AUTO) 2.7 % (0.0-6.0); HEMATOCRIT 29 % (39-51); LYMPHOCYTES # (AUTO) 1.7 /CMM (0.8-4.8); LYMPHOCYTES % (AUTO) 14.4 % (20.0-44.0); MEAN CORPUSCULAR HGB CONC 31 g/dl (31.0-36.0); MEAN CORPUSCULAR VOLUME 109 fL (80-96); MONOCYTES # (AUTO) 1.1 /CMM (0.1-1.30); MONOCYTES % (AUTO) 9.1 % (2.0-12.0); NEUTROPHILS # (AUTO) 8.9 /CMM (1.8-8.9); NEUTROPHILS % (AUTO) 73.2 % (43.0-81.0); PLATELET COUNT (AUTO) 249 /CMM (150-450); RED BLOOD CELL COUNT(AUTO) 2.64 MIL/uL (4.5-6.0); WHITE BLOOD COUNT (AUTO) 12.2 K/uL (4.3-11.0)
[2020-07-07 16:00] VITALS: BP 133/82
[2020-07-07 17:00] LABS: EOSINOPHILS % (MANUAL) 3 % (0-4); LYMPHOCYTES % (MANUAL) 13 % (16-48); MONOCYTES % (MANUAL) 4 % (0-11.0); NEUTROPHILS % (MANUAL) 80 (42-76)
[2020-07-07] MEDS ORDERED: PEG 3350/NA SULF,BICARB,CL/KCL 4,000 ML BOTTLE PO ONE (18:00)
--- NOTE | 2020-07-07 18:24 | NUR ---
rn notes patient remains on room air, a/o x4 at this time. Anuric and walks with walker. Clear liquid diet until midnight, he becomes NPO at this time. RU CW perma cath. RAC 18, L AV shunt. Creatinine and potassium, FURNACE TAPPER Sandra aware. Patient given golytly and he stated that he will finish everything by midnight. Consents signed. Bed at the lowest setting, call light within reach, side rails up x2.
--- NOTE | 2020-07-07 19:57 | NUR ---
MS RN OPENING NOTES PATIENT RECEIVED RESTING IN BED A/O X 4. STABLE ON RA WITH BREATHING EVEN AND UNLABORED, NO SOB NOTED. NO SIGNS OF ACUTE DISTRESS. NO COMPLAINTS OF PAIN OR DISCOMFORT AT THE MOMENT. R AC #18 NOTED, R UPPER CHEST WALL PERMA CATH NOTED, L AV SHUNT NOTED . PATIENT NPO EXCEPT MEDS AND ENCOURAGED TO DRINK THE GOLYTELY THROUGHOUTH THE NIGHT. SAFETY PRECAUTIONS IN PLACE WITH BED IN LOWEST POSITION, CALL LIGHT WITHIN REACH, BREAKS ON, SIDE RAILS UP. WILL CONTINUE TO MONITOR THROUGHOUT THE NIGHT.
[2020-07-07 20:00] VITALS: BP 134/94
--- NOTE | 2020-07-07 22:19 | NUR ---
RN NOTES THREE BOWEL MOVEMENTS NOTED WITH LOOSE BLOODY STOOL, NOTIFIED MD PHILLIP. NO COMPLAINS FROM PATIENT OF DISCOMFORT OR WEAKNESS. ORDERED STAT HEMOGRAM AND TO ENCOURAGE INTAKE OF GOLYTELY. WILL CONTINUE TO MONITOR.
[2020-07-07 22:53] LABS: HEMATOCRIT 28 % (39-51); HEMOGLOBIN 8.6 g/dL (13.5-17.5); MEAN CORPUSCULAR HGB CONC 32 g/dl (31.0-36.0); MEAN CORPUSCULAR VOLUME 109 fL (80-96); PLATELET COUNT (AUTO) 278 /CMM (150-450); RED BLOOD CELL COUNT(AUTO) 2.52 MIL/uL (4.5-6.0); WHITE BLOOD COUNT (AUTO) 12.3 K/uL (4.3-11.0)
[2020-07-07] MEDS: ONDANSETRON HCL/PF 4 MG/2 ML VIAL IVP PRN (23:55)
[2020-07-08] VITALS: BP_SYST 116; BP_SYST 125; BP_DIAS 65; BP_DIAS 68
--- NOTE | 2020-07-08 00:20 | NUR ---
RN NOTES PATIENT HAD EPISODE OF CLEAR EMESIS. PRN ZOFRAN ADMINISTERED. NAUSEA AND EMESIS STOPPED. WILL CONTINUE TO MONITOR.
[2020-07-08 04:00] VITALS: BP 136/83
--- NOTE | 2020-07-08 05:41 | NUR ---
RN NOTES SCHEDULED 120 ML SORBITOL NOT AVAILABLE ON FLOOR, NOT PRESENT IN PYXIS OR PATIENT CASSETTE. CONTACTED GUARD RAIL INSTALLER AND ER AND NOT AVAILABLE. WILL FOLLOW UP WITH PHARMACY WHEN THEY COME IN AND WILL ENDORSE TO ONCOMING SHIFT.
[2020-07-08] MEDS ORDERED: SORBITOL SOLUTION 30 ML PO ONE (06:00)
[2020-07-08 06:21] LABS: BASOPHILS # (AUTO) 0.1 /CMM (0.0-0.2); BASOPHILS % (AUTO) 0.4 % (0.0-2.0); EOSINOPHILS % (AUTO) 0.8 % (0.0-6.0); HEMATOCRIT 26 % (39-51); HEMOGLOBIN 7.8 g/dL (13.5-17.5); LYMPHOCYTES # (AUTO) 1.7 /CMM (0.8-4.8); LYMPHOCYTES % (AUTO) 7.9 % (20.0-44.0); MEAN CORPUSCULAR HGB CONC 31 g/dl (31.0-36.0); MEAN CORPUSCULAR VOLUME 113 fL (80-96); MONOCYTES # (AUTO) 1.6 /CMM (0.1-1.30); MONOCYTES % (AUTO) 7.6 % (2.0-12.0); NEUTROPHILS # (AUTO) 17.7 /CMM (1.8-8.9); NEUTROPHILS % (AUTO) 83.3 % (43.0-81.0); PLATELET COUNT (AUTO) 285 /CMM (150-450); RED BLOOD CELL COUNT(AUTO) 2.26 MIL/uL (4.5-6.0); WHITE BLOOD COUNT (AUTO) 21.2 K/uL (4.3-11.0)
[2020-07-08 06:37] LABS: ALBUMIN 2.8 g/dL (3.4-5.0); BILIRUBIN,TOTAL 0.2 mg/dL (0.2-1.0); CALCIUM, SERUM 8.6 mg/dL (8.5-10.1); TOTAL PROTEIN, SERUM 5.7 g/dL (6.4-8.2)
--- NOTE | 2020-07-08 06:58 | NUR ---
RN CLOSING NOTES PATIENT RESTING IN BED A/O X 4. ON 2L OF O2 WITH BREATHING EVEN AND UNLABORED, NO SOB NOTED. NO SIGNS OF ACUTE DISTRESS. NO COMPLAINTS OF PAIN OR DISCOMFORT AT THE MOMENT. R AC #18 NOTED, R UPPER CHEST WALL PERMA CATH NOTED, L AV SHUNT NOTED . PATIENT HAS REMAINED NPO THROUGHOUT THE NIGHT. STILL ENCOURAGING TO DRINK GOLYTELY. SAFETY PRECAUTIONS IN PLACE WITH BED IN LOWEST POSITION, CALL LIGHT WITHIN REACH, BREAKS ON, SIDE RAILS UP. ALL NEEDS ATTENDED TO. WILL ENDORSE TO ONCOMING SHIFT ABOUT BRADY.
[2020-07-08 07:03] LABS: POTASSIUM 6.5 mmol/L (3.5-5.1)
--- NOTE | 2020-07-08 07:07 | NUR ---
RN NOTES CRITICAL LAB LEVELS OF POTASSIUM 6.5 AND CREATININE 15. NOTIFIED MD WEINER. WILL ENDORSE TO ONCOMING SHIFT.
--- NOTE | 2020-07-08 07:19 | NUR ---
RN NOTES NO NEW ORDERS MADE OF CRITICAL LABS, TOLD TO ENDORSE TO NEPHRO. AWARE OF PATIENT PROCEDURE OF EGD AND COLONOSCOPY.
--- NOTE | 2020-07-08 07:30 | NUR ---
TELE/RN NOTE THE PATIENT IS RECEIVED IN BED. PATIENT IS ALERT AND ORIENTED X4. DENIES PAIN. IN ROOM AIR AND DENIES SOB. RESPIRATION REGULAR AND UNLABORED. THE PATIENT IN NO APPARENT DISTRESS. EXTERNAL TELE BOX READING READING IS SINUS TACHYCARDIA 101. RAC G 18 PATENT AND SALINE LOCKED. LEFT AV SHUNT AND RIGHT UPPER CHEST PERMACATH PRESENT. BED LOW AND LOCKED. SIDE RAILS UP X3. CALL LIGHT WITHIN REACH. WILL CONTINUE TO MONITOR.
[2020-07-08 08:00] VITALS: BP 123/69
[2020-07-08] MEDS: CALCIUM ACETATE 667 MG TABLET PO SCH (08:00)
[2020-07-08] MEDS: SUCRALFATE 1 G TABLET PO SCH (09:00)
[2020-07-08] MEDS: VIT B CMPLX 3/FA/VIT C/BIOTIN 1 TAB TABLET PO SCH (09:00)
[2020-07-08] MEDS: PANTOPRAZOLE 40 MG VIAL IV SCH (09:14)
[2020-07-08] MEDS: ONDANSETRON HCL/PF 4 MG/2 ML VIAL IVP PRN (09:21)
--- NOTE | 2020-07-08 10:00 | NUR ---
TELE/RN NOTE CALLED DR PHILLIP TO REPORT ABOUT POTASSIUM LEVEL OF 6.5, HGB 7.8 AND WBC 21.2. NO ANSWER.
--- NOTE | 2020-07-08 10:00 | NUR ---
RN NOTE DR MEADOWS AWARE OF PATIENT`S LABS.
--- NOTE | 2020-07-08 10:20 | NUR ---
TELE/RN NOTE DR PHILLIP MADE AWARE POTASSIUM LEVEL OF 6.5, HGB 7.8 AND WBC 21.2. NO NEW ORDERS.
--- NOTE | 2020-07-08 10:35 | NUR ---
RN NOTE FOLLOW UP WITH DIALYSIS NURSE FRANCES REGARDING THE PATIENT DIALYSIS. NO DIALYSIS SCHEDULED OF NOW.
--- NOTE | 2020-07-08 11:15 | NUR ---
RN NOTE DR AGUILA STATED THAT THE HE IS AWARE OF POTASSIUM LEVEL AND THE PATIENT WILL GET DIALYSIS TODAY.
[2020-07-08] MEDS ORDERED: CALCIUM CHLORIDE 1,000 MG/10 ML DISP.SYRIN ONE (13:13)
[2020-07-08] MEDS ORDERED: EPINEPHRINE (1:10,000) SYRINGE 1 MG/10 ML DISP.SYRIN ONE (13:13)
[2020-07-08] MEDS ORDERED: SODIUM BICARBONATE SYR 50 MEQ/50 ML DISP.SYRIN ONE (13:13)
[2020-07-08] MEDS ORDERED: AMIODARONE 150 MG/3 ML VIAL IV ONE (13:13)
--- NOTE | 2020-07-08 13:49 | NUR ---
RN NOTE CALLED CORONAR`S OFFICE AND SPOKE WITH HADOOP DEVELOPER EUGENE AND PER EUGENE IT IS NOT A CORONAR`S CASE.
== END 2020-07-08 12:15 | disposition expired | DRG 377 ==
LOC: ER 08:45 → TELE 12:36 → MED 07-08 11:16
PROC: 5A2204Z Restoration of Cardiac Rhythm, Single (ICD-10-PCS; principal; 2020-07-08)
DX: K27.4 Chronic or unspecified peptic ulcer, site unspecified, with hemorrhage (principal); N18.6 End stage renal disease; E46 Unspecified protein-calorie malnutrition; A09 Infectious gastroenteritis and colitis, unspecified; K55.9 Vascular disorder of intestine, unspecified; I12.0 Hypertensive chronic kidney disease with stage 5 chronic kidney disease or end stage renal disease; M19.90 Unspecified osteoarthritis, unspecified site; N40.0 Benign prostatic hyperplasia without lower urinary tract symptoms; I27.20 Pulmonary hypertension, unspecified; Z99.2 Dependence on renal dialysis; M10.9 Gout, unspecified; Z79.899 Other long term (current) drug therapy; Z87.11 Personal history of peptic ulcer disease; D53.9 Nutritional anemia, unspecified
CPT/HCPCS: 36415; 70450-TC; 71045-TC; 80048-TC; 80053-TC; 80061-TC; 80076-TC; 82728-TC; 82962-TC; 83540-TC; 83690-TC; 83735-TC; 84100-TC; 84484-TC; 85025-TC; 85027-TC; 85730-TC; 86850-TC; 86921-TC; 87081-TC; 93307-TC; C9113; C9803-CS; G0378; J0171; J0282; J2405; J3490; J7030